=== PATIENT | female | born 1985 | race American Indian/Alaskan Native ===

== ENCOUNTER 2016-05-27 14:33 | Emergency (ER) | payer MEDICAID ==
--- NOTE | 2016-05-27 14:36 | EDM.PDOC ---
ED HPI RENAL/ - General Chief Complaint: Genitourinary Problem Stated Complaint: BLADDER INFECTION Time Seen by Provider: 05/27/16 14:35 Source of Information: Reports: Patient, Old records, RN, RN notes reviewed History Limitations: Reports: No limitations - History of Present Illness INITIAL COMMENTS - FREE TEXT/NARRATIVE: Arrives to ER by POV with c/o "bladder infection". Onset of burning with urination one and half weeks ago associated with some chills. It partially went away after 3 days, however, over the past several days has returned and she has developed left flank pain and suprapubic pressure. Denies fevers. Timing/Duration: Reports: Constant Location: Reports: urethral, suprapubic Quality: Reports: burning Severity: severe Worsens with: Reports: urinating Associated Symptoms: Reports: no other symptoms - Related Data Allergies/ADRs: Allergies Allergy/AdvReac Type Severity Reaction Status Date / Time ketorolac tromethamine Allergy Difficulty Verified 05/27/16 14:37 [From Toradol] Breathing Penicillins Allergy Cannot Verified 05/27/16 14:37 Remember Home Meds: Home Meds Insulin Glargine,Hum.Rec.Anlog [Lantus Solostar] 33 units SQ DAILY 12/20/15 [ History] Past Medical History - Past Health History Medical/Surgical History: Denies Medical/Surgical History HEENT History: Reports: None Cardiovascular History: Reports: None Respiratory History: Reports: None Gastrointestinal History: Reports: None Genitourinary History: Reports: UTI, recurrent 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 Musculoskeletal History: Reports: None Neurological History: Reports: None Psychiatric History: Reports: None Endocrine/Metabolic History: Reports: Diabetes, type II, Obesity/BMI 30+ Hematologic History: Reports: None Immunologic History: Reports: None Oncologic (Cancer) History: Reports: None Dermatologic History: Reports: None Social & Family History - Family History Family Medical History: Noncontributory - Tobacco Use Smoking Status *Q: Never Smoker Years of Tobacco use: 1 Used Tobacco, but Quit: Yes Month Tobacco Last Used: N/A Second Hand Smoke Exposure: Yes - Caffeine Use Caffeine Use: Reports: Coffee, Soda - Alcohol Use Days Per Week of Alcohol Use: 0 - Recreational Drug Use Recreational Drug Use: No - Living Situation & Occupation Living situation: Reports: with family ED ROS GENERAL - Review of Systems Review Of Systems: ROS reveals no pertinent complaints other than HPI. ED EXAM, RENAL/ - Physical Exam Exam: See Below Exam Limited By: No limitations General Appearance: alert, WD/WN, no apparent distress Head: atraumatic, normocephalic Neck: normal inspection Respiratory/Chest: no respiratory distress, lungs clear, normal breath sounds, no accessory muscle use, chest non-tender Cardiovascular: regular rate, rhythm GI/Abdominal: normal bowel sounds, soft, no distention, tender (suprapubic.). No: guarding, rigid, rebound (Female) Exam: Deferred Rectal (Female) Exam: Deferred Back Exam: full range of motion, CVA tenderness (L). No: CVA tenderness (R) Neurological: alert, oriented, no motor/sensory deficits Psychiatric: normal mood Skin Exam: Warm, Dry, Intact, Normal color, No rash Course - Vital Signs Last Recorded V/S: Last Vital Signs Temp 35.4 C 05/27/16 14:41 Pulse 110 H 05/27/16 14:41 Resp 16 05/27/16 14:41 BP 139/86 05/27/16 14:41 Pulse Ox 99 05/27/16 14:41 - Orders/Labs/Meds Orders: Active Orders 24 hr Category Date Time Status CHLAMYDIA TRACHOMATIS/GC AMPLF Routine Lab 05/27/16 15:00 Received CULTURE URINE [RM] Stat Lab 05/27/16 15:00 Received Labs: Laboratory Tests 05/27/16 05/27/16 Range/Units 15:00 15:00 Urine Color Yellow (YELLOW) Urine Appearance Slightly cloudy (CLEAR) Urine pH 6.5 (5.0-9.0) Ur Specific [place] 1.015 (1.005-1.030) Urine Protein Negative (NEGATIVE) Urine Glucose (UA) 500 H (NEGATIVE) Urine Ketones Negative (NEGATIVE) Urine Occult Blood Small H (NEGATIVE) Urine Nitrite Negative (NEGATIVE) Urine Bilirubin Negative (NEGATIVE) Urine Urobilinogen 0.2 (0.2-1.0) mg/dL Ur Leukocyte Esterase Negative (NEGATIVE) Urine RBC 0-5 /HPF Urine WBC 50-75 H (0-5/HPF) /HPF Ur Epithelial Cells Few /HPF Urine Bacteria Moderate H (0-FEW/HPF) /HPF Urine HCG, Qual Negative Departure - Departure Time of Disposition: 15:39 Disposition: Home, Self-Care 01 Condition: good Clinical Impression: Urinary tract infection Qualifiers: Urinary tract infection type: acute pyelonephritis Qualified Code(s): N10 - Acute pyelonephritis Instructions: Pyelonephritis, Adult, [id number] Forms: ED Department Discharge Additional Instructions: Pyridiium 200mg. Cipro 500mg. Drink plenty of water. Follow up in clinic for urine recheck in 7 to 10 days. - My Orders Last 24 Hours: My Active Orders 05/27/16 15:00 CHLAMYDIA TRACHOMATIS/GC AMPLF Routine CULTURE URINE [RM] Stat - Assessment/Plan Last 24 Hours: My Active Orders 05/27/16 15:00 CHLAMYDIA TRACHOMATIS/GC AMPLF Routine CULTURE URINE [RM] Stat
[2016-05-27 14:42] VITALS: BP 139/86
== END 2016-05-27 15:48 | disposition home or self-care (01) ==
LOC: DL.ED 14:33
DX: N10 Acute pyelonephritis (principal); E11.9 Type 2 diabetes mellitus without complications; E66.9 Obesity, unspecified; Z88.0 Allergy status to penicillin; Z88.5 Allergy status to narcotic agent; Z79.4 Long term (current) use of insulin
CPT/HCPCS: 81001; 81025; 87086; 87088; 87186; 87491; 87591; 99283

== ENCOUNTER 2016-06-03 11:52 | Emergency (ER) | payer MEDICAID ==
[2016-06-03 12:04] VITALS: BP 124/79
--- NOTE | 2016-06-03 13:20 | EDM.PDOC ---
ED HPI RENAL/ - General Chief Complaint: ENT Problem Stated Complaint: PAIN, STATIS POST TOOTH PULLED, KIDNEY INFECTION Time Seen by Provider: 06/03/16 13:11 - History of Present Illness INITIAL COMMENTS - FREE TEXT/NARRATIVE: patient presented to the emergency room. Patient was triaged and administered urinalysis. Patient was in the waiting room to be placed in the emergency room bed. When the nurse went to get patient, patient had left. Patient did not respond to followup. Timing/Duration: Reports: Day(s): - Related Data Allergies/ADRs: Allergies Allergy/AdvReac Type Severity Reaction Status Date / Time ketorolac tromethamine Allergy Difficulty Verified 06/03/16 20:29 [From Toradol] Breathing Penicillins Allergy Cannot Verified 06/03/16 20:29 Remember Home Meds: Home Meds Insulin Glargine,Hum.Rec.Anlog [Lantus Solostar] 33 units SQ DAILY 12/20/15 [ History] metFORMIN HCl [Metformin HCl] 1 tab PO BID 06/03/16 [History] Past Medical History - Past Health History Medical/Surgical History: Denies Medical/Surgical History HEENT History: Reports: None Cardiovascular History: Reports: None Respiratory History: Reports: None Gastrointestinal History: Reports: None Genitourinary History: Reports: Pyelonephritis, UTI, recurrent 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 Musculoskeletal History: Reports: None Neurological History: Reports: None Psychiatric History: Reports: None Endocrine/Metabolic History: Reports: Diabetes, type II, Obesity/BMI 30+ Hematologic History: Reports: None Immunologic History: Reports: None Oncologic (Cancer) History: Reports: None Dermatologic History: Reports: None Social & Family History - Family History Family Medical History: Noncontributory - Tobacco Use Smoking Status *Q: Former Smoker Years of Tobacco use: 1 Used Tobacco, but Quit: Yes Month Tobacco Last Used: 12 Second Hand Smoke Exposure: Yes - Caffeine Use Caffeine Use: Reports: Coffee, Soda - Alcohol Use Days Per Week of Alcohol Use: 0 - Recreational Drug Use Recreational Drug Use: No - Living Situation & Occupation Living situation: Reports: with family ED ROS GENERAL - Review of Systems Review Of Systems: ROS reveals no pertinent complaints other than HPI. ED EXAM, RENAL/ - Physical Exam Exam: See Below Text/Narrative:: Patient left before being seen. No examination of patient Course - Vital Signs Last Recorded V/S: Last Vital Signs Temp 98.2 F 06/03/16 12:03 Pulse 101 H 06/03/16 12:03 Resp 20 06/03/16 12:03 BP 124/79 06/03/16 12:03 Pulse Ox 98 06/03/16 12:03 - Orders/Labs/Meds Labs: Laboratory Tests 06/03/16 Range/Units 12:10 Urine Color Yellow (YELLOW) Urine Appearance Slightly cloudy (CLEAR) Urine pH 5.0 (5.0-9.0) Ur Specific [place] >= 1.030 (1.005-1.030) Urine Protein 30 H (NEGATIVE) Urine Glucose (UA) >=1000 H (NEGATIVE) Urine Ketones Negative (NEGATIVE) Urine Occult Blood Negative (NEGATIVE) Urine Nitrite Negative (NEGATIVE) Urine Bilirubin Small H (NEGATIVE) Urine Urobilinogen 0.2 (0.2-1.0) mg/dL Ur Leukocyte Esterase Negative (NEGATIVE) Urine RBC 0-5 /HPF Urine WBC 0-5 (0-5/HPF) /HPF Ur Epithelial Cells Many H /HPF Urine Bacteria Moderate H (0-FEW/HPF) /HPF Urine Mucus Moderate H /LPF Urine Yeast Few H (0/HPF) /HPF Departure - Departure Time of Disposition: 08:48 Disposition: Eloped 07 Condition: undetermined Clinical Impression: Urinary tract infection Qualifiers: Urinary tract infection type: acute pyelonephritis Qualified Code(s): N10 - Acute pyelonephritis Referrals: Miri Dockery MD [Primary Care Provider] - Forms: ED Department Discharge
== END 2016-06-03 13:55 | disposition left against medical advice (07) ==
LOC: DL.ED 11:52
DX: Z53.21 Procedure and treatment not carried out due to patient leaving prior to being seen by health care provider (principal); N10 Acute pyelonephritis; Z88.0 Allergy status to penicillin; Z88.8 Allergy status to other drugs, medicaments and biological substances; Z79.84 Long term (current) use of oral hypoglycemic drugs; E11.9 Type 2 diabetes mellitus without complications; E66.9 Obesity, unspecified; Z68.27 Body mass index [BMI] 27.0-27.9, adult; Z87.891 Personal history of nicotine dependence
CPT/HCPCS: 81001

== ENCOUNTER 2016-06-03 20:12 | Emergency (ER) | payer MEDICAID ==
[2016-06-03 20:28] VITALS: BP 142/95
[2016-06-03] MEDS ORDERED: Clindamycin HCl 150 MG Cap PO ONE (21:05)
--- NOTE | 2016-06-03 21:15 | EDM.PDOC ---
ED HPI ENT - General Chief Complaint: ENT Problem Stated Complaint: TOOTH PAIN [id number] Time Seen by Provider: 06/03/16 21:00 Source of Information: Reports: Patient History Limitations: Reports: No limitations - History of Present Illness INITIAL COMMENTS - FREE TEXT/NARRATIVE: pain left side of mouth, upper molar pulled on Monday, pain continues. Feels pain up into eye. 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 - Related Data Allergies/ADRs: Allergies Allergy/AdvReac Type Severity Reaction Status Date / Time ketorolac tromethamine Allergy Difficulty Verified 06/03/16 20:29 [From Toradol] Breathing Penicillins Allergy Cannot Verified 06/03/16 20:29 Remember Home Meds: Home Meds Insulin Glargine,Hum.Rec.Anlog [Lantus Solostar] 33 units SQ DAILY 12/20/15 [ History] metFORMIN HCl [Metformin HCl] 1 tab PO BID 06/03/16 [History] Past Medical History - Past Health History Medical/Surgical History: Denies Medical/Surgical History HEENT History: Reports: None Cardiovascular History: Reports: None Respiratory History: Reports: None Gastrointestinal History: Reports: None Genitourinary History: Reports: Pyelonephritis, UTI, recurrent 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 Musculoskeletal History: Reports: None Neurological History: Reports: None Psychiatric History: Reports: None Endocrine/Metabolic History: Reports: Diabetes, type II, Obesity/BMI 30+ Hematologic History: Reports: None Immunologic History: Reports: None Oncologic (Cancer) History: Reports: None Dermatologic History: Reports: None - Infectious Disease History Infectious Disease History: Reports: MRSA Social & Family History - Family History Family Medical History: Noncontributory - Tobacco Use Smoking Status *Q: Never Smoker Years of Tobacco use: 1 Used Tobacco, but Quit: Yes Month Tobacco Last Used: 12 Second Hand Smoke Exposure: Yes - Caffeine Use Caffeine Use: Reports: Coffee, Soda, Tea - Alcohol Use Days Per Week of Alcohol Use: 0 - Recreational Drug Use Recreational Drug Use: No - Living Situation & Occupation Living situation: Reports: with family ED ROS ENT - Review of Systems Review Of Systems: See Below Constitutional: Reports: no symptoms HEENT: Reports: Dental pain Skin: Reports: no symptoms Neurological: Reports: No Symptoms ED EXAM, ENT - Physical Exam Exam: See Below Exam Limited By: No limitations General Appearance: alert, mild distress Ears: normal external exam, normal canal, normal TMs Nose: normal inspection Mouth/Throat: Dental pain, Dental tenderness (left upper 2nd molar recent extraction, minmal swelling , tender mid maxilla mild swelling to gum tussue) Head: facial tenderness (left mid maxilla) Neck: normal inspection, lymphadenopathy (L) (mild anterior) Respiratory/Chest: no respiratory distress Cardiovascular: normal peripheral pulses Neurological: alert, oriented Skin: Warm, Dry, Intact Course - Vital Signs Last Recorded V/S: Last Vital Signs Temp 98.4 F 06/03/16 20:18 Pulse 109 H 06/03/16 20:18 Resp 20 06/03/16 20:18 BP 142/95 H 06/03/16 20:18 Pulse Ox 100 06/03/16 20:18 - Orders/Labs/Meds Meds: Medications Discontinued Medications Generic Name Dose Route Start Last Admin Trade Name Manq PRN Reason Stop Dose Admin Clindamycin HCl 300 mg 06/03/16 21:05 06/03/16 21:12 Cleocin PO 06/03/16 21:06 300 mg ONETIME ONE Administration Departure - Departure Time of Disposition: 21:10 Disposition: Home, Self-Care 01 Condition: good Clinical Impression: Dental abscess Forms: ED Department Discharge Additional Instructions: alternate tylenol 650mg with ibuprofen every 4-6 hours as needed clindamycin 300mg every 8 hours for one week Recheck with dentist next week rinse with water after meals
== END 2016-06-03 21:16 | disposition home or self-care (01) ==
LOC: DL.ED 20:12
DX: K04.7 Periapical abscess without sinus (principal); E11.9 Type 2 diabetes mellitus without complications; E66.9 Obesity, unspecified; Z88.8 Allergy status to other drugs, medicaments and biological substances; Z88.0 Allergy status to penicillin
CPT/HCPCS: 99282; A9270

== ENCOUNTER 2016-06-26 22:54 | Emergency (ER) | payer MEDICAID ==
[2016-06-26 23:29] VITALS: BP 147/107
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
[2016-06-27] MEDS ORDERED: Cephalexin 250 MG Cap PO ONE (00:26)
[2016-06-27] MEDS ORDERED: Acetaminophen/HYDROcodone 325-10 MG Tab PO ONE (00:28)
[2016-06-27] MEDS ORDERED: Acetaminophen/HYDROcodone 325-10 MG Tab ONE (00:28)
== END 2016-06-27 00:35 | disposition home or self-care (01) ==
LOC: DL.ED 22:54
DX: S00.83XA Contusion of other part of head, initial encounter (principal); S51.852A Open bite of left forearm, initial encounter; E11.40 Type 2 diabetes mellitus with diabetic neuropathy, unspecified; E66.9 Obesity, unspecified; Z87.440 Personal history of urinary (tract) infections; Z88.0 Allergy status to penicillin; Z79.4 Long term (current) use of insulin; Z79.899 Other long term (current) drug therapy; Z88.6 Allergy status to analgesic agent; Y04.0XXA Assault by unarmed brawl or fight, initial encounter
CPT/HCPCS: 70450; 81025; 99284; A9270

== ENCOUNTER 2016-07-31 21:24 | Emergency (ER) | payer MEDICAID ==
--- NOTE | 2016-07-31 21:59 | EDM.PDOC ---
ED HPI GENERAL MEDICAL PROBLEM - General Chief Complaint: Abdominal Pain Stated Complaint: SHARP PAIN IN STOMACH Time Seen by Provider: 07/31/16 21:58 Source of Information: Reports: Patient History Limitations: Reports: No Limitations - History of Present Illness INITIAL COMMENTS - FREE TEXT/NARRATIVE: onset yesterday @ RUQ region, no N/V/D. ate BBQ tonight but nothing spicy or greasy. 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: Acetaminophen, NSAIDS Right Upper Abdomen Pain Score (Numeric/FACES): 5 - Related Data Allergies Allergy/AdvReac Type Severity Reaction Status Date / Time ketorolac tromethamine Allergy Difficulty Verified 07/31/16 21:39 [From Toradol] Breathing Penicillins Allergy Cannot Verified 07/31/16 21:39 Remember Home Meds: Home Meds Insulin Glargine,Hum.Rec.Anlog [Lantus Solostar] 25 units SQ DAILY 12/20/15 [ History] metFORMIN HCl [Metformin HCl] 1 tab PO BID 06/03/16 [History] Gabapentin [Neurontin] 300 mg PO TID 06/26/16 [History] glyBURIDE [Glyburide] 5 mg PO DAILY 06/26/16 [History] Past Medical History - Past Health History Medical/Surgical History: Denies Medical/Surgical History HEENT History: Reports: None Cardiovascular History: Reports: None Respiratory History: Reports: None Gastrointestinal History: Reports: None Genitourinary History: Reports: Pyelonephritis, UTI, Recurrent 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 Musculoskeletal History: Reports: None Neurological History: Reports: Neuropathy, Diabetic Psychiatric History: Reports: None Endocrine/Metabolic History: Reports: Diabetes, Type II, Obesity/BMI 30+ Hematologic History: Reports: None Immunologic History: Reports: None Oncologic (Cancer) History: Reports: None Dermatologic History: Reports: None - Infectious Disease History Infectious Disease History: Reports: MRSA Social & Family History - Family History Family Medical History: Noncontributory - Tobacco Use Smoking Status *Q: Never Smoker Years of Tobacco use: 1 Used Tobacco, but Quit: Yes Month Tobacco Last Used: 12 Second Hand Smoke Exposure: Yes - Caffeine Use Caffeine Use: Reports: Coffee, Soda, Tea - Alcohol Use Days Per Week of Alcohol Use: 0 - Recreational Drug Use Recreational Drug Use: No - Living Situation & Occupation Living situation: Reports: with Family ED ROS GENERAL - Review of Systems Review Of Systems: ROS reveals no pertinent complaints other than HPI. ED EXAM, GI/ABD - Physical Exam Exam: See Below Exam Limited By: No Limitations General Appearance: Alert, WD/WN, Mild Distress, Other (discomfort) Ears: Hearing Grossly Normal Throat/Mouth: Normal Voice, No Airway Compromise Head: Atraumatic Neck: Non-Tender, Full Range of Motion Respiratory/Chest: No Respiratory Distress Cardiovascular: Regular Rate, Rhythm GI/Abdominal: Hyperactive Bowel Sounds, Tenderness, Other (RUQ). No: Guarding, Rebound, Rigidity Neurological: Alert, Oriented, Normal Cognition, Normal Gait, No Motor/Sensory Deficits Psychiatric: Flat Affect Skin Exam: Warm, Dry Lymphatic: No Adenopathy Course - Vital Signs Last Recorded V/S: Last Vital Signs Temp 35.9 C 07/31/16 21:28 Pulse 111 H 07/31/16 21:28 Resp 18 07/31/16 21:28 BP 142/89 H 07/31/16 21:28 Pulse Ox 99 07/31/16 21:28 - Orders/Labs/Meds Orders: Active Orders 24 hr Category Date Time Status Acetaminophen/HYDROcodone [[place] 325-10 MG] Med 07/31/16 22:48 Once 1 tab PO ONETIME ONE Medication Orders Hydrocodone Bitart/Acetaminophen ([place] 325-10 Mg) 1 tab PO ONETIME ONE Stop: 07/31/16 22:49 Labs: Laboratory Tests 07/31/16 07/31/16 07/31/16 Range/Units 21:58 21:58 21:58 WBC (5.0-10.0) 10^3/uL RBC (4.2-5.4) 10^6/uL Hgb (12.0-16.0) g/dL Hct (37.0-47.0) % MCV (80-100) fL MCH (27.0-34.0) pg MCHC (33.0-35.0) g/dL Plt Count (150-450) 10^3/uL Neut % (Auto) (42.2-75.2) % Lymph % (Auto) (20.5-50.1) % [place] % (Auto) (2-8) % Eos % (Auto) (1.0-3.0) % Baso % (Auto) (0.0-1.0) % Sodium (135-145) mmol/L Potassium (3.6-5.0) mmol/L Chloride (101-111) mmol/L Carbon Dioxide (21.0-31.0) mmol/L Anion Gap BUN (7-18) mg/dL Creatinine (0.6-1.3) mg/dL Est Cr Clr Drug Dosing mL/min Estimated GFR (MDRD) BUN/Creatinine Ratio Glucose (74-105) mg/dL Calcium (8.4-10.2) mg/dl Total Bilirubin (0.2-1.0) mg/dL AST (10-42) IU/L ALT (10-60) IU/L Alkaline Phosphatase (42-121) IU/L Total Protein (6.7-8.2) g/dl Albumin (3.2-5.5) g/dl Globulin Albumin/Globulin Ratio Amylase (28-100) U/L Lipase (22-51) U/L Urine Color Yellow (YELLOW) Urine Appearance Slightly cloudy (CLEAR) Urine pH 5.5 (5.0-9.0) Ur Specific [place] 1.020 (1.005-1.030) Urine Protein Negative (NEGATIVE) Urine Glucose (UA) 100 H (NEGATIVE) Urine Ketones Negative (NEGATIVE) Urine Occult Blood Negative (NEGATIVE) Urine Nitrite Negative (NEGATIVE) Urine Bilirubin Negative (NEGATIVE) Urine Urobilinogen 0.2 (0.2-1.0) mg/dL Ur Leukocyte Esterase Negative (NEGATIVE) Urine RBC 0-5 /HPF Urine WBC 0-5 (0-5/HPF) /HPF Ur Epithelial Cells Few /HPF Urine Bacteria Rare (0-FEW/HPF) /HPF Urine HCG, Qual Negative Urine Opiates Screen Negative (NEGATIVE) Ur Oxycodone Screen Negative (NEGATIVE) Urine Methadone Screen Negative (NEGATIVE) Ur Barbiturates Screen Negative (NEGATIVE) U Tricyclic Antidepress Negative (NEGATIVE) Ur Phencyclidine Scrn Negative (NEGATIVE) Ur Amphetamine Screen Negative (NEGATIVE) U Methamphetamines Scrn Negative (NEGATIVE) Urine MDMA Screen Negative (NEGATIVE) U Benzodiazepines Scrn Negative (NEGATIVE) Urine Cocaine Screen Negative (NEGATIVE) U Marijuana (THC) Screen Negative (NEGATIVE) 06/18/17 06/18/17 Range/Units 22:09 22:09 WBC 11.2 H (5.0-10.0) 10^3/uL RBC 4.66 (4.2-5.4) 10^6/uL Hgb 13.5 (12.0-16.0) g/dL Hct 39.8 (37.0-47.0) % MCV 85.4 (80-100) fL MCH 29.0 (27.0-34.0) pg MCHC 33.9 (33.0-35.0) g/dL Plt Count 366 (150-450) 10^3/uL Neut % (Auto) 54.7 (42.2-75.2) % Lymph % (Auto) 32.5 (20.5-50.1) % [place] % (Auto) 8.1 H (2-8) % Eos % (Auto) 4.1 H (1.0-3.0) % Baso % (Auto) 0.6 (0.0-1.0) % Sodium 138 (135-145) mmol/L Potassium 4.0 (3.6-5.0) mmol/L Chloride 101 (101-111) mmol/L Carbon Dioxide 26.0 (21.0-31.0) mmol/L Anion Gap 15.0 BUN 18 (7-18) mg/dL Creatinine 0.5 L (0.6-1.3) mg/dL Est Cr Clr Drug Dosing 139.49 mL/min Estimated GFR (MDRD) > 60 BUN/Creatinine Ratio 36.00 Glucose 232 H (74-105) mg/dL Calcium 8.8 (8.4-10.2) mg/dl Total Bilirubin 0.4 (0.2-1.0) mg/dL AST 18 (10-42) IU/L ALT 20 (10-60) IU/L Alkaline Phosphatase 96 (42-121) IU/L Total Protein 6.9 (6.7-8.2) g/dl Albumin 4.0 (3.2-5.5) g/dl Globulin 2.9 Albumin/Globulin Ratio 1.38 Amylase 52 (28-100) U/L Lipase 26 (22-51) U/L Urine Color (YELLOW) Urine Appearance (CLEAR) Urine pH (5.0-9.0) Ur Specific [place] (1.005-1.030) Urine Protein (NEGATIVE) Urine Glucose (UA) (NEGATIVE) Urine Ketones (NEGATIVE) Urine Occult Blood (NEGATIVE) Urine Nitrite (NEGATIVE) Urine Bilirubin (NEGATIVE) Urine Urobilinogen (0.2-1.0) mg/dL Ur Leukocyte Esterase (NEGATIVE) Urine RBC /HPF Urine WBC (0-5/HPF) /HPF Ur Epithelial Cells /HPF Urine Bacteria (0-FEW/HPF) /HPF Urine HCG, Qual Urine Opiates Screen (NEGATIVE) Ur Oxycodone Screen (NEGATIVE) Urine Methadone Screen (NEGATIVE) Ur Barbiturates Screen (NEGATIVE) U Tricyclic Antidepress (NEGATIVE) Ur Phencyclidine Scrn (NEGATIVE) Ur Amphetamine Screen (NEGATIVE) U Methamphetamines Scrn (NEGATIVE) Urine MDMA Screen (NEGATIVE) U Benzodiazepines Scrn (NEGATIVE) Urine Cocaine Screen (NEGATIVE) U Marijuana (THC) Screen (NEGATIVE) Meds: Medications Generic Name Dose Route Start Last Admin Trade Name Freq PRN Reason Stop Dose Admin Hydrocodone Bitart/Acetaminophen 1 tab 07/31/16 22:48 [place] 325-10 Mg PO 07/31/16 22:49 ONETIME ONE - Re-Assessments/Exams Free Text/Narrative Re-Assessment/Exam: 07/31/16 22:50 results discussed with Pt. Departure - Departure Time of Disposition: 22:50 Disposition: Home, Self-Care 01 Condition: Good Clinical Impression: Abdominal pain Qualifiers: Abdominal location: epigastric Qualified Code(s): R10.13 - Epigastric pain - Discharge Information Instructions: Abdominal Pain, Adult, [id number] Forms: ED Department Discharge Additional Instructions: 1) see clinic tomorrow for GALL BLADDER ULTRASOUND FOR GALL BLADDER ISSUE - My Orders Last 24 Hours: My Active Orders 07/31/16 22:48 Acetaminophen/HYDROcodone [[place] 325-10 MG] 1 tab PO ONETIME ONE - Assessment/Plan Last 24 Hours: My Active Orders 07/31/16 22:48 Acetaminophen/HYDROcodone [[place] 325-10 MG] 1 tab PO ONETIME ONE
[2016-07-31 22:37] LABS: CHLORIDE,CL 101 mmol/L (101-111); SODIUM,NA 138 mmol/L (135-145)
[2016-07-31] MEDS ORDERED: Acetaminophen/HYDROcodone 325-10 MG Tab PO ONE (22:48)
[2016-07-31 23:07] VITALS: BP 138/98
== END 2016-07-31 23:00 | disposition home or self-care (01) ==
LOC: DL.ED 21:24
DX: R10.13 Epigastric pain (principal); Z79.899 Other long term (current) drug therapy; Z79.4 Long term (current) use of insulin; E11.9 Type 2 diabetes mellitus without complications; Z86.14 Personal history of Methicillin resistant Staphylococcus aureus infection; Z88.0 Allergy status to penicillin; Z88.6 Allergy status to analgesic agent; Z87.891 Personal history of nicotine dependence; E66.9 Obesity, unspecified
CPT/HCPCS: 36415; 80053; 80305; 81001; 81025; 82150; 83690; 85025; 99284; A9270

== ENCOUNTER 2016-08-05 19:35 | Emergency (ER) | payer MEDICAID ==
[2016-08-05] MEDS ORDERED: Morphine 2 MG/ML Syringe IVPUSH ONE (20:26)
[2016-08-05] MEDS ORDERED: Ondansetron 4 MG/2 ML SDV IV ONE (20:26)
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
[2016-08-05 21:04] LABS: CHLORIDE,CL 102 mmol/L (101-111); SODIUM,NA 138 mmol/L (135-145)
[2016-08-05] MEDS ORDERED: GI Cocktail Oral Solution 30 ML PO ONE (21:15)
[2016-08-05 21:55] VITALS: BP 153/98
== END 2016-08-05 22:00 | disposition home or self-care (01) ==
LOC: DL.ED 19:35
DX: R10.11 Right upper quadrant pain (principal); R10.13 Epigastric pain; I10 Essential (primary) hypertension; Z87.440 Personal history of urinary (tract) infections; E11.40 Type 2 diabetes mellitus with diabetic neuropathy, unspecified; E66.9 Obesity, unspecified; Z88.6 Allergy status to analgesic agent; Z88.0 Allergy status to penicillin; Z79.4 Long term (current) use of insulin; Z79.84 Long term (current) use of oral hypoglycemic drugs; Z79.899 Other long term (current) drug therapy
CPT/HCPCS: 36415; 80053; 82150; 83690; 85025; 96374; 96375; 99284; A9270; J2270; J2405

== ENCOUNTER 2016-11-26 19:12 | Emergency (ER) | payer MEDICAID ==
[2016-11-26 20:06] VITALS: BP 148/100
[2016-11-26] MEDS ORDERED: Azithromycin 250 MG Tab PO ONE (20:43)
[2016-11-26] MEDS ORDERED: Codeine/Promethazine 10-6.25 MG/5 ML Syrup 5 ML UD Cup ONE (20:48)
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
== END 2016-11-26 20:56 | disposition home or self-care (01) ==
LOC: DL.ED 19:12
DX: J03.90 Acute tonsillitis, unspecified (principal); N39.0 Urinary tract infection, site not specified; J40 Bronchitis, not specified as acute or chronic; Z87.891 Personal history of nicotine dependence; E11.9 Type 2 diabetes mellitus without complications; E66.9 Obesity, unspecified; Z79.84 Long term (current) use of oral hypoglycemic drugs; Z88.0 Allergy status to penicillin; Z88.8 Allergy status to other drugs, medicaments and biological substances
CPT/HCPCS: 81001; 87081; 87430; 99283; A9270

== ENCOUNTER 2016-12-04 19:15 | Emergency (ER) | payer MEDICAID ==
[2016-12-04 20:30] VITALS: BP 145/94
[2016-12-04] MEDS ORDERED: Acetaminophen/HYDROcodone 325-10 MG Tab PO ONE (21:23)
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
== END 2016-12-04 21:36 | disposition home or self-care (01) ==
LOC: DL.ED 19:15
DX: S90.31XA Contusion of right foot, initial encounter (principal); E11.9 Type 2 diabetes mellitus without complications; I10 Essential (primary) hypertension; Z79.84 Long term (current) use of oral hypoglycemic drugs; Z79.899 Other long term (current) drug therapy; Z88.5 Allergy status to narcotic agent; Z88.0 Allergy status to penicillin; W18.49XA Other slipping, tripping and stumbling without falling, initial encounter
CPT/HCPCS: 73610; 99283; A9270

== ENCOUNTER 2017-02-06 21:17 | Emergency (ER) | payer MEDICAID ==
[2017-02-06 21:47] VITALS: BP 133/85
[2017-02-06] MEDS ORDERED: Nitrofurantoin Monohydrate/Macrocrystalline 100 MG Cap PO ONE (22:45)
[2017-02-06] MEDS ORDERED: Phenazopyridine 95 MG Tab PO ONE (22:45)
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
== END 2017-02-06 23:00 | disposition home or self-care (01) ==
LOC: DL.ED 21:17
DX: N39.0 Urinary tract infection, site not specified (principal); I10 Essential (primary) hypertension; E11.9 Type 2 diabetes mellitus without complications; Z88.6 Allergy status to analgesic agent; Z88.0 Allergy status to penicillin; Z79.84 Long term (current) use of oral hypoglycemic drugs; Z79.899 Other long term (current) drug therapy
CPT/HCPCS: 81001; 99284; A9270

== ENCOUNTER 2017-04-12 21:04 | Emergency (ER) | payer MEDICAID ==
[2017-04-12 21:22] VITALS: BP 120/83
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
[2017-04-12] MEDS: predniSONE 20 MG Tab PO ONE (21:57)
[2017-04-12] MEDS: Azithromycin 250 MG Tab PO ONE ×2 (21:57)
== END 2017-04-12 22:06 | disposition home or self-care (01) ==
LOC: DL.ED 21:04
DX: J02.0 Streptococcal pharyngitis (principal); I10 Essential (primary) hypertension; E11.40 Type 2 diabetes mellitus with diabetic neuropathy, unspecified; Z88.6 Allergy status to analgesic agent; Z88.1 Allergy status to other antibiotic agents; Z79.899 Other long term (current) drug therapy; Z79.4 Long term (current) use of insulin; Z87.891 Personal history of nicotine dependence
CPT/HCPCS: 87430; 99283; A9270

== ENCOUNTER 2017-09-25 23:21 | Emergency (ER) | payer MEDICAID ==
[2017-09-25 23:26] VITALS: BP 134/93
[2017-09-25] MEDS ORDERED: Sodium Chloride 0.9% 50 ML IV SCH (23:45)
[2017-09-25] MEDS ORDERED: Sodium Chloride 0.9% 1,000 ML IV ONE (23:45)
[2017-09-25] MEDS ORDERED: Famotidine 20 MG/2 ML SDV IVPUSH ONE (23:48)
[2017-09-25] MEDS ORDERED: Ondansetron 4 MG/2 ML SDV IV ONE (23:48)
[2017-09-26 00:08] LABS: ANION GAP 14.4; CHLORIDE,CL 101 mmol/L (101-111); SODIUM,NA 133 mmol/L (135-145)
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
[2017-09-26] MEDS ORDERED: Nitrofurantoin Monohydrate/Macrocrystalline 100 MG Cap PO ONE (00:44)
== END 2017-09-26 01:10 | disposition home or self-care (01) ==
LOC: DL.ED 23:21
DX: K52.9 Noninfective gastroenteritis and colitis, unspecified (principal); N10 Acute pyelonephritis; I10 Essential (primary) hypertension; E11.40 Type 2 diabetes mellitus with diabetic neuropathy, unspecified; Z79.84 Long term (current) use of oral hypoglycemic drugs; Z79.899 Other long term (current) drug therapy; Z88.0 Allergy status to penicillin; Z88.6 Allergy status to analgesic agent
CPT/HCPCS: 36415; 74018; 80053; 81001; 82150; 83690; 85025; 96361; 96374; 96375; 99284; A9270; J2405; J3490; J7030

== ENCOUNTER 2018-04-25 10:31 | Emergency (ER) | payer MEDICAID ==
[2018-04-25 11:44] VITALS: BP 125/80
[2018-04-25] MEDS ORDERED: Ketorolac 30 MG/ML SDV IM ONE (11:44)
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
== END 2018-04-25 12:10 | disposition home or self-care (01) ==
LOC: DL.ED 10:31
DX: M62.830 Muscle spasm of back (principal); M54.5 Low back pain; I10 Essential (primary) hypertension; E66.9 Obesity, unspecified; E11.9 Type 2 diabetes mellitus without complications; Z88.0 Allergy status to penicillin; Z88.8 Allergy status to other drugs, medicaments and biological substances; Z79.899 Other long term (current) drug therapy
CPT/HCPCS: 96372; 99282; J1885; J2360

== ENCOUNTER 2018-04-30 20:46 | Emergency (ER) | payer MEDICAID ==
[2018-04-30] MEDS ORDERED: methylPREDNISolone Sodium Succinate 125 MG/2 ML SDV IM ONE (21:12)
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
[2018-04-30] MEDS ORDERED: Nitrofurantoin Monohydrate/Macrocrystalline 100 MG Cap PO ONE (22:01)
[2018-04-30 22:03] VITALS: BP 134/76
== END 2018-04-30 22:23 | disposition home or self-care (01) ==
LOC: DL.ED 20:46
DX: N39.0 Urinary tract infection, site not specified (principal); M54.5 Low back pain; G89.29 Other chronic pain; I10 Essential (primary) hypertension; E11.40 Type 2 diabetes mellitus with diabetic neuropathy, unspecified; E66.9 Obesity, unspecified; Z88.0 Allergy status to penicillin; Z88.6 Allergy status to analgesic agent
CPT/HCPCS: 81001; 87086; 96372; 99283; A9270; J2930; 87088; 87186

== ENCOUNTER 2018-05-02 08:03 | Emergency (ER) | payer MEDICAID ==
[2018-05-02] MEDS ORDERED: Lidocaine 1% 30 ML SDV INJECT ONE (08:24)
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
[2018-05-02 08:43] LABS: ANION GAP 18.6; CHLORIDE,CL 94 mmol/L (101-111); SODIUM,NA 129 mmol/L (135-145)
[2018-05-02] MEDS ORDERED: Vancomycin 1.5 GM in Sodium Chloride 0.9% 500 ML IV ONE (08:51)
[2018-05-02] MEDS ORDERED: Acetaminophen/HYDROcodone 325-10 MG Tab PO ONE (09:16)
[2018-05-02 10:45] VITALS: BP 120/74
== END 2018-05-02 10:50 | disposition home or self-care (01) ==
LOC: EEVIPCON 08:03 → DL.ED 08:03
DX: L02.211 Cutaneous abscess of abdominal wall (principal); I10 Essential (primary) hypertension; E11.40 Type 2 diabetes mellitus with diabetic neuropathy, unspecified; Z88.5 Allergy status to narcotic agent; Z79.899 Other long term (current) drug therapy; Z88.0 Allergy status to penicillin; Z79.84 Long term (current) use of oral hypoglycemic drugs
CPT/HCPCS: 10060; 36415; 80053; 80305; 81001; 81025; 83605; 85025; 87040; 87070; 87077; 87186; 96365; 99283; A9270; J2001; J3370; J7040

== ENCOUNTER 2018-07-24 14:13 | Emergency (ER) | payer MEDICAID, SELFPAY ==
[2018-07-24 14:45] VITALS: BP 130/101
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
[2018-07-24] MEDS ORDERED: cefTRIAXone 1 GM Vial IM ONE (15:54)
[2018-07-24] MEDS ORDERED: Azithromycin 250 MG Tab PO ONE (15:54)
[2018-07-24] MEDS ORDERED: Fluconazole 100 MG Tab PO ONE (15:55)
[2018-07-24] MEDS ORDERED: Phenazopyridine 95 MG Tab PO ONE (16:09)
[2018-07-24] MEDS ORDERED: Lidocaine 1% 30 ML SDV INJECT ONE (16:12)
[2018-07-24] MEDS: Lidocaine 1% 10 ML MDV INJECT ONE ×2 (16:25→16:28)
== END 2018-07-24 16:37 | disposition home or self-care (01) ==
LOC: DL.ED 14:13
DX: B37.3 Candidiasis of vulva and vagina (principal); E11.40 Type 2 diabetes mellitus with diabetic neuropathy, unspecified; I10 Essential (primary) hypertension; E66.9 Obesity, unspecified; Z88.0 Allergy status to penicillin; Z88.6 Allergy status to analgesic agent; Z79.84 Long term (current) use of oral hypoglycemic drugs; Z79.899 Other long term (current) drug therapy
CPT/HCPCS: 81001; 81025; 87210; 87491; 87591; 96372; 99283; A9270; J0696; J2001

== ENCOUNTER 2019-05-12 15:22 | Inpatient (IN) | payer MEDICAID, OTHER ==
[2019-05-12] MEDS: Sodium Chloride 0.9% 10 ML Syringe FLUSH PRN (16:48)
[2019-05-12] MEDS ORDERED: Morphine 2 MG/ML Syringe IVPUSH ONE ×2 (17:16→19:38)
[2019-05-12 17:18] LABS: ANION GAP 17.8 mEq/L (7-13); CHLORIDE,CL 96 mmol/L (98-107); SODIUM,NA 133 mmol/L (136-145)
[2019-05-12] MEDS ORDERED: Sodium Chloride 0.9% 1,000 ML IV ONE ×3 (17:26→22:03)
[2019-05-12] MEDS ORDERED: Insulin Regular, Human 100 Units/ML 3 ML Vial IV ONE (17:33)
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
[2019-05-12] MEDS ORDERED: Piperacillin/Tazobactam 3.375 GM in Sodium Chloride 0.9% 100 ML IV ONE (18:40)
[2019-05-12] MEDS ORDERED: Acetaminophen 500 MG Tab PO ONE (19:36)
[2019-05-12] MEDS ORDERED: Ibuprofen 400 MG Tab PO ONE (19:37)
[2019-05-12] MEDS ORDERED: Acetaminophen/oxyCODONE 325-5 MG Tab PO PRN (19:55)
[2019-05-12] MEDS ORDERED: Ondansetron 4 MG/2 ML SDV IVPUSH PRN (19:55)
[2019-05-12] MEDS: Sodium Chloride 0.9% 1,000 ML IV SCH (20:19)
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
[2019-05-12] MEDS ORDERED: Insulin Glarg,Human.Rec.Analog 100 Unit/ML SUBCUT SCH (21:00)
[2019-05-12] MEDS: Gabapentin 300 MG Cap PO SCH (21:16)
[2019-05-12] MEDS: QUEtiapine 100 MG Tab PO SCH (21:16)
[2019-05-12] MEDS: Insulin Glarg,Human.Rec.Analog 100 Unit/ML SUBCUT SCH (21:16)
[2019-05-12] MEDS: Insulin Lispro 100 Units/ML 3 ML Vial SUBCUT SCH (21:18)
[2019-05-12] MEDS ORDERED: Iopamidol 755 Mg/ML 100 ML Bottle IVPUSH ONE (22:00)
[2019-05-12] MEDS ORDERED: Magnesium Sulfate/Water 2 GM in Premix Bag 1 BAG IV ONE (22:07)
[2019-05-12] MEDS: Acetaminophen 325 MG Tab PO PRN (23:28)
[2019-05-12] MEDS: Ibuprofen 600 MG Tab PO PRN (23:28)
[2019-05-13] MEDS: Piperacillin/Tazobactam 3.375 GM in Sodium Chloride 0.9% 100 ML IV SCH ×4 (01:32→17:13)
[2019-05-13 05:05] LABS: ANION GAP 12.6 mEq/L (7-13); CHLORIDE,CL 103 mmol/L (98-107); SODIUM,NA 135 mmol/L (136-145)
[2019-05-13] MEDS: Ibuprofen 600 MG Tab PO PRN (07:30)
[2019-05-13] MEDS ORDERED: Insulin Lispro 100 Units/ML 3 ML Vial SUBCUT SCH (08:00)
[2019-05-13] MEDS: Insulin Lispro 100 Units/ML 3 ML Vial SUBCUT SCH ×6 (08:26→21:19)
[2019-05-13] MEDS: Gabapentin 300 MG Cap PO SCH ×3 (08:27→21:23)
[2019-05-13] MEDS: Escitalopram 10 MG Tab PO SCH (08:27)
[2019-05-13] MEDS: Enoxaparin 40 MG/0.4 ML Syringe SUBCUT SCH (08:27)
[2019-05-13] MEDS: Lisinopril 5 MG Tab PO SCH (08:28)
[2019-05-13] MEDS: Acetaminophen 325 MG Tab PO PRN ×3 (09:06→20:26)
[2019-05-13] MEDS: Phosphorus #1 250 MG Tab PO SCH ×4 (09:07→21:23)
[2019-05-13 09:20] LABS: HEMOGLOBIN A1C 9.7 % (<5.7)
--- NOTE | 2019-05-13 10:18 | PCM.PN ---
- General Info Date of Service: 05/13/19 Admission Dx/Problem (Free Text): Admission Diagnosis/Problem Admission Diagnosis/Problem Pyelonephritis Subjective Update: Meli is a 33 y/o F with PMH of recurrent Kidney/UTI, depression, Type 2 diabetes, obesity, who presented to the ED for evaluation of fever, chills and right flank pains that started 3 days ago. She was found to have Sepsis due to UTI. She was started on IV Zosyn. Patient is also being screened for COVID-19. She has cough, fever, upper respiratory symptoms. Today she si doing ok. Fever, chills and right flank pain has improved. She says she is feeling better. Blood cx was positive for gram negative rods 2/2. Urine cx was positive for gram negative sho. She denies fever, chills, n/v. Functional Status: Reports: Pain Controlled - Review of Systems General: Reports: Malaise HEENT: Reports: No Symptoms Pulmonary: Reports: Cough Cardiovascular: Reports: No Symptoms Gastrointestinal: Reports: Other (right flank pains.) Genitourinary: Reports: Flank Pain Musculoskeletal: Reports: No Symptoms Skin: Reports: No Symptoms Neurological: Reports: No Symptoms Psychiatric: Reports: No Symptoms - Patient Data Vitals - Most Recent: Last Vital Signs Temp 99.0 F 05/13/19 07:33 Pulse 92 05/13/19 07:33 Resp 18 05/13/19 07:33 BP 92/50 L 05/13/19 08:28 Pulse Ox 100 05/13/19 07:33 Weight - Most Recent: 164 lb I&O - Last 24 Hours: Intake & Output 05/12/19 05/13/19 05/13/19 22:59 06:59 14:59 Intake Total 500 500 Output Total 200 450 Balance 500 300 -450 Lab Results Last 24 Hours: Laboratory Results - last 24 hr 05/12/19 05/12/19 05/12/19 Range/Units 16:04 16:04 16:50 WBC 21.1 H (5.0-10.0) 10^3/uL RBC 4.87 (4.2-5.4) 10^6/uL Hgb 14.0 (12.0-16.0) g/dL Hct 41.3 (37.0-47.0) % MCV 84.8 (80-100) fL MCH 28.7 (27.0-34.0) pg MCHC 33.9 (33.0-35.0) g/dL Plt Count 339 (150-450) 10^3/uL Neut % (Auto) 93.0 H (42.2-75.2) % Lymph % (Auto) 3.9 L (20.5-50.1) % [place] % (Auto) 2.7 (2-8) % Eos % (Auto) 0.2 L (1.0-3.0) % Baso % (Auto) 0.2 (0.0-1.0) % PT (9.0-12.0) SEC INR (0.9-1.2) D-Dimer, Quantitative (0-400) ng/mL Sodium (136-145) mmol/L Potassium (3.5-5.1) mmol/L Chloride (98-107) mmol/L Carbon Dioxide (21-32) mmol/L Anion Gap (7-13) mEq/L BUN (7-18) mg/dL Creatinine (0.55-1.02) mg/dL Est Cr Clr Drug Dosing mL/min Estimated GFR (MDRD) BUN/Creatinine Ratio (No establ ref range) Glucose (74-99) mg/dL POC Glucose (70-105) mg/dl Hemoglobin A1c (<5.7) % Lactic Acid (0.4-2.0) mmol/L Calcium (8.5-10.1) mg/dL Phosphorus (2.6-4.7) mg/dL Magnesium (1.8-2.4) mg/dL Ferritin (8-252) mg/mL Total Bilirubin (0.2-1.0) mg/dL Direct Bilirubin (0.0-0.2) mg/dL Indirect Bilirubin AST (15-37) U/L ALT (14-59) U/L Alkaline Phosphatase (46-116) U/L C-Reactive Protein (0.0-0.9) mg/dL Total Protein (6.4-8.2) g/dL Albumin (3.4-5.0) g/dL Globulin Albumin/Globulin Ratio Urine Color Dark yellow (YELLOW) Urine Appearance Cloudy (CLEAR) Urine pH 5.5 (5.0-9.0) Ur Specific [place] >= 1.030 (1.005-1.030) Urine Protein 100 H (NEGATIVE) Urine Glucose (UA) 500 H (NEGATIVE) Urine Ketones Negative (NEGATIVE) Urine Occult Blood Moderate H (NEGATIVE) Urine Nitrite Positive H (NEGATIVE) Urine Bilirubin Negative (NEGATIVE) Urine Urobilinogen 0.2 (0.2-1.0) mg/dL Ur Leukocyte Esterase Small H (NEGATIVE) Urine RBC Packed H /HPF Urine WBC Packed H (0-5/HPF) /HPF Ur Epithelial Cells Few (NOT SEEN) /HPF Urine Bacteria Moderate H (0-FEW/HPF) /HPF Urine HCG, Qual Negative 05/12/19 05/12/19 05/12/19 Range/Units 16:50 16:50 18:15 WBC (5.0-10.0) 10^3/uL RBC (4.2-5.4) 10^6/uL Hgb (12.0-16.0) g/dL Hct (37.0-47.0) % MCV (80-100) fL MCH (27.0-34.0) pg MCHC (33.0-35.0) g/dL Plt Count (150-450) 10^3/uL Neut % (Auto) (42.2-75.2) % Lymph % (Auto) (20.5-50.1) % [place] % (Auto) (2-8) % Eos % (Auto) (1.0-3.0) % Baso % (Auto) (0.0-1.0) % PT (9.0-12.0) SEC INR (0.9-1.2) D-Dimer, Quantitative (0-400) ng/mL Sodium 133 L (136-145) mmol/L Potassium 3.8 (3.5-5.1) mmol/L Chloride 96 L (98-107) mmol/L Carbon Dioxide 23 (21-32) mmol/L Anion Gap 17.8 H (7-13) mEq/L BUN 12 (7-18) mg/dL Creatinine 0.79 (0.55-1.02) mg/dL Est Cr Clr Drug Dosing 90.29 mL/min Estimated GFR (MDRD) > 60 BUN/Creatinine Ratio 15.2 (No establ ref range) Glucose 300 H (74-99) mg/dL POC Glucose 177 H (70-105) mg/dl Hemoglobin A1c (<5.7) % Lactic Acid 3.5 H* (0.4-2.0) mmol/L Calcium 8.1 L (8.5-10.1) mg/dL Phosphorus (2.6-4.7) mg/dL Magnesium (1.8-2.4) mg/dL Ferritin (8-252) mg/mL Total Bilirubin 0.9 (0.2-1.0) mg/dL Direct Bilirubin (0.0-0.2) mg/dL Indirect Bilirubin AST 32 (15-37) U/L ALT 145 H (14-59) U/L Alkaline Phosphatase 142 H (46-116) U/L C-Reactive Protein (0.0-0.9) mg/dL Total Protein 8.0 (6.4-8.2) g/dL Albumin 3.3 L (3.4-5.0) g/dL Globulin 4.7 Albumin/Globulin Ratio 0.70 Urine Color (YELLOW) Urine Appearance (CLEAR) Urine pH (5.0-9.0) Ur Specific [place] (1.005-1.030) Urine Protein (NEGATIVE) Urine Glucose (UA) (NEGATIVE) Urine Ketones (NEGATIVE) Urine Occult Blood (NEGATIVE) Urine Nitrite (NEGATIVE) Urine Bilirubin (NEGATIVE) Urine Urobilinogen (0.2-1.0) mg/dL Ur Leukocyte Esterase (NEGATIVE) Urine RBC /HPF Urine WBC (0-5/HPF) /HPF Ur Epithelial Cells (NOT SEEN) /HPF Urine Bacteria (0-FEW/HPF) /HPF Urine HCG, Qual 05/12/19 05/12/19 05/12/19 Range/Units 20:59 20:59 20:59 WBC (5.0-10.0) 10^3/uL RBC (4.2-5.4) 10^6/uL Hgb (12.0-16.0) g/dL Hct (37.0-47.0) % MCV (80-100) fL MCH (27.0-34.0) pg MCHC (33.0-35.0) g/dL Plt Count (150-450) 10^3/uL Neut % (Auto) (42.2-75.2) % Lymph % (Auto) (20.5-50.1) % [place] % (Auto) (2-8) % Eos % (Auto) (1.0-3.0) % Baso % (Auto) (0.0-1.0) % PT (9.0-12.0) SEC INR (0.9-1.2) D-Dimer, Quantitative 685 H (0-400) ng/mL Sodium (136-145) mmol/L Potassium (3.5-5.1) mmol/L Chloride (98-107) mmol/L Carbon Dioxide (21-32) mmol/L Anion Gap (7-13) mEq/L BUN (7-18) mg/dL Creatinine (0.55-1.02) mg/dL Est Cr Clr Drug Dosing mL/min Estimated GFR (MDRD) BUN/Creatinine Ratio (No establ ref range) Glucose (74-99) mg/dL POC Glucose (70-105) mg/dl Hemoglobin A1c (<5.7) % Lactic Acid 4.4 H* (0.4-2.0) mmol/L Calcium (8.5-10.1) mg/dL Phosphorus 1.4 L (2.6-4.7) mg/dL Magnesium 0.9 L (1.8-2.4) mg/dL Ferritin (8-252) mg/mL Total Bilirubin (0.2-1.0) mg/dL Direct Bilirubin (0.0-0.2) mg/dL Indirect Bilirubin AST (15-37) U/L ALT (14-59) U/L Alkaline Phosphatase (46-116) U/L C-Reactive Protein (0.0-0.9) mg/dL Total Protein (6.4-8.2) g/dL Albumin (3.4-5.0) g/dL Globulin Albumin/Globulin Ratio Urine Color (YELLOW) Urine Appearance (CLEAR) Urine pH (5.0-9.0) Ur Specific [place] (1.005-1.030) Urine Protein (NEGATIVE) Urine Glucose (UA) (NEGATIVE) Urine Ketones (NEGATIVE) Urine Occult Blood (NEGATIVE) Urine Nitrite (NEGATIVE) Urine Bilirubin (NEGATIVE) Urine Urobilinogen (0.2-1.0) mg/dL Ur Leukocyte Esterase (NEGATIVE) Urine RBC /HPF Urine WBC (0-5/HPF) /HPF Ur Epithelial Cells (NOT SEEN) /HPF Urine Bacteria (0-FEW/HPF) /HPF Urine HCG, Qual 05/12/19 05/12/19 05/12/19 Range/Units 20:59 20:59 20:59 WBC (5.0-10.0) 10^3/uL RBC (4.2-5.4) 10^6/uL Hgb (12.0-16.0) g/dL Hct (37.0-47.0) % MCV (80-100) fL MCH (27.0-34.0) pg MCHC (33.0-35.0) g/dL Plt Count (150-450) 10^3/uL Neut % (Auto) (42.2-75.2) % Lymph % (Auto) (20.5-50.1) % [place] % (Auto) (2-8) % Eos % (Auto) (1.0-3.0) % Baso % (Auto) (0.0-1.0) % PT 10.4 (9.0-12.0) SEC INR 1.1 (0.9-1.2) D-Dimer, Quantitative (0-400) ng/mL Sodium (136-145) mmol/L Potassium (3.5-5.1) mmol/L Chloride (98-107) mmol/L Carbon Dioxide (21-32) mmol/L Anion Gap (7-13) mEq/L BUN (7-18) mg/dL Creatinine (0.55-1.02) mg/dL Est Cr Clr Drug Dosing mL/min Estimated GFR (MDRD) BUN/Creatinine Ratio (No establ ref range) Glucose (74-99) mg/dL POC Glucose (70-105) mg/dl Hemoglobin A1c (<5.7) % Lactic Acid (0.4-2.0) mmol/L Calcium (8.5-10.1) mg/dL Phosphorus (2.6-4.7) mg/dL Magnesium (1.8-2.4) mg/dL Ferritin 167 (8-252) mg/mL Total Bilirubin (0.2-1.0) mg/dL Direct Bilirubin (0.0-0.2) mg/dL Indirect Bilirubin AST (15-37) U/L ALT (14-59) U/L Alkaline Phosphatase (46-116) U/L C-Reactive Protein 11.9 H (0.0-0.9) mg/dL Total Protein (6.4-8.2) g/dL Albumin (3.4-5.0) g/dL Globulin Albumin/Globulin Ratio Urine Color (YELLOW) Urine Appearance (CLEAR) Urine pH (5.0-9.0) Ur Specific [place] (1.005-1.030) Urine Protein (NEGATIVE) Urine Glucose (UA) (NEGATIVE) Urine Ketones (NEGATIVE) Urine Occult Blood (NEGATIVE) Urine Nitrite (NEGATIVE) Urine Bilirubin (NEGATIVE) Urine Urobilinogen (0.2-1.0) mg/dL Ur Leukocyte Esterase (NEGATIVE) Urine RBC /HPF Urine WBC (0-5/HPF) /HPF Ur Epithelial Cells (NOT SEEN) /HPF Urine Bacteria (0-FEW/HPF) /HPF Urine HCG, Qual 05/12/19 05/13/19 05/13/19 Range/Units 21:11 00:19 04:10 WBC 23.7 H (5.0-10.0) 10^3/uL RBC 3.74 L (4.2-5.4) 10^6/uL Hgb 11.0 L D (12.0-16.0) g/dL Hct 32.4 L (37.0-47.0) % MCV 86.6 (80-100) fL MCH 29.4 (27.0-34.0) pg MCHC 34.0 (33.0-35.0) g/dL Plt Count 253 D (150-450) 10^3/uL Neut % (Auto) (42.2-75.2) % Lymph % (Auto) (20.5-50.1) % [place] % (Auto) (2-8) % Eos % (Auto) (1.0-3.0) % Baso % (Auto) (0.0-1.0) % PT (9.0-12.0) SEC INR (0.9-1.2) D-Dimer, Quantitative (0-400) ng/mL Sodium (136-145) mmol/L Potassium (3.5-5.1) mmol/L Chloride (98-107) mmol/L Carbon Dioxide (21-32) mmol/L Anion Gap (7-13) mEq/L BUN (7-18) mg/dL Creatinine (0.55-1.02) mg/dL Est Cr Clr Drug Dosing mL/min Estimated GFR (MDRD) BUN/Creatinine Ratio (No establ ref range) Glucose (74-99) mg/dL POC Glucose 217 H (70-105) mg/dl Hemoglobin A1c (<5.7) % Lactic Acid 2.8 H* (0.4-2.0) mmol/L Calcium (8.5-10.1) mg/dL Phosphorus (2.6-4.7) mg/dL Magnesium (1.8-2.4) mg/dL Ferritin (8-252) mg/mL Total Bilirubin (0.2-1.0) mg/dL Direct Bilirubin (0.0-0.2) mg/dL Indirect Bilirubin AST (15-37) U/L ALT (14-59) U/L Alkaline Phosphatase (46-116) U/L C-Reactive Protein (0.0-0.9) mg/dL Total Protein (6.4-8.2) g/dL Albumin (3.4-5.0) g/dL Globulin Albumin/Globulin Ratio Urine Color (YELLOW) Urine Appearance (CLEAR) Urine pH (5.0-9.0) Ur Specific [place] (1.005-1.030) Urine Protein (NEGATIVE) Urine Glucose (UA) (NEGATIVE) Urine Ketones (NEGATIVE) Urine Occult Blood (NEGATIVE) Urine Nitrite (NEGATIVE) Urine Bilirubin (NEGATIVE) Urine Urobilinogen (0.2-1.0) mg/dL Ur Leukocyte Esterase (NEGATIVE) Urine RBC /HPF Urine WBC (0-5/HPF) /HPF Ur Epithelial Cells (NOT SEEN) /HPF Urine Bacteria (0-FEW/HPF) /HPF Urine HCG, Qual 05/13/19 05/13/19 05/13/19 Range/Units 04:10 04:10 04:10 WBC (5.0-10.0) 10^3/uL RBC (4.2-5.4) 10^6/uL Hgb (12.0-16.0) g/dL Hct (37.0-47.0) % MCV (80-100) fL MCH (27.0-34.0) pg MCHC (33.0-35.0) g/dL Plt Count (150-450) 10^3/uL Neut % (Auto) (42.2-75.2) % Lymph % (Auto) (20.5-50.1) % [place] % (Auto) (2-8) % Eos % (Auto) (1.0-3.0) % Baso % (Auto) (0.0-1.0) % PT (9.0-12.0) SEC INR (0.9-1.2) D-Dimer, Quantitative (0-400) ng/mL Sodium 135 L (136-145) mmol/L Potassium 3.6 (3.5-5.1) mmol/L Chloride 103 (98-107) mmol/L Carbon Dioxide 23 (21-32) mmol/L Anion Gap 12.6 (7-13) mEq/L BUN 18 (7-18) mg/dL Creatinine 0.91 (0.55-1.02) mg/dL Est Cr Clr Drug Dosing 78.38 mL/min Estimated GFR (MDRD) > 60 BUN/Creatinine Ratio (No establ ref range) Glucose 295 H (74-99) mg/dL POC Glucose (70-105) mg/dl Hemoglobin A1c (<5.7) % Lactic Acid 1.3 (0.4-2.0) mmol/L Calcium 6.9 L (8.5-10.1) mg/dL Phosphorus (2.6-4.7) mg/dL Magnesium 2.1 (1.8-2.4) mg/dL Ferritin (8-252) mg/mL Total Bilirubin 0.6 (0.2-1.0) mg/dL Direct Bilirubin 0.3 H (0.0-0.2) mg/dL Indirect Bilirubin 0.3 AST 39 H (15-37) U/L ALT 90 H (14-59) U/L Alkaline Phosphatase 87 (46-116) U/L C-Reactive Protein (0.0-0.9) mg/dL Total Protein 5.5 L (6.4-8.2) g/dL Albumin 2.1 L (3.4-5.0) g/dL Globulin 3.4 Albumin/Globulin Ratio 0.62 Urine Color (YELLOW) Urine Appearance (CLEAR) Urine pH (5.0-9.0) Ur Specific [place] (1.005-1.030) Urine Protein (NEGATIVE) Urine Glucose (UA) (NEGATIVE) Urine Ketones (NEGATIVE) Urine Occult Blood (NEGATIVE) Urine Nitrite (NEGATIVE) Urine Bilirubin (NEGATIVE) Urine Urobilinogen (0.2-1.0) mg/dL Ur Leukocyte Esterase (NEGATIVE) Urine RBC /HPF Urine WBC (0-5/HPF) /HPF Ur Epithelial Cells (NOT SEEN) /HPF Urine Bacteria (0-FEW/HPF) /HPF Urine HCG, Qual 05/13/19 05/13/19 Range/Units 04:10 07:46 WBC (5.0-10.0) 10^3/uL RBC (4.2-5.4) 10^6/uL Hgb (12.0-16.0) g/dL Hct (37.0-47.0) % MCV (80-100) fL MCH (27.0-34.0) pg MCHC (33.0-35.0) g/dL Plt Count (150-450) 10^3/uL Neut % (Auto) (42.2-75.2) % Lymph % (Auto) (20.5-50.1) % [place] % (Auto) (2-8) % Eos % (Auto) (1.0-3.0) % Baso % (Auto) (0.0-1.0) % PT (9.0-12.0) SEC INR (0.9-1.2) D-Dimer, Quantitative (0-400) ng/mL Sodium (136-145) mmol/L Potassium (3.5-5.1) mmol/L Chloride (98-107) mmol/L Carbon Dioxide (21-32) mmol/L Anion Gap (7-13) mEq/L BUN (7-18) mg/dL Creatinine (0.55-1.02) mg/dL Est Cr Clr Drug Dosing mL/min Estimated GFR (MDRD) BUN/Creatinine Ratio (No establ ref range) Glucose (74-99) mg/dL POC Glucose 321 H (70-105) mg/dl Hemoglobin A1c 9.7 H (<5.7) % Lactic Acid (0.4-2.0) mmol/L Calcium (8.5-10.1) mg/dL Phosphorus (2.6-4.7) mg/dL Magnesium (1.8-2.4) mg/dL Ferritin (8-252) mg/mL Total Bilirubin (0.2-1.0) mg/dL Direct Bilirubin (0.0-0.2) mg/dL Indirect Bilirubin AST (15-37) U/L ALT (14-59) U/L Alkaline Phosphatase (46-116) U/L C-Reactive Protein (0.0-0.9) mg/dL Total Protein (6.4-8.2) g/dL Albumin (3.4-5.0) g/dL Globulin Albumin/Globulin Ratio Urine Color (YELLOW) Urine Appearance (CLEAR) Urine pH (5.0-9.0) Ur Specific [place] (1.005-1.030) Urine Protein (NEGATIVE) Urine Glucose (UA) (NEGATIVE) Urine Ketones (NEGATIVE) Urine Occult Blood (NEGATIVE) Urine Nitrite (NEGATIVE) Urine Bilirubin (NEGATIVE) Urine Urobilinogen (0.2-1.0) mg/dL Ur Leukocyte Esterase (NEGATIVE) Urine RBC /HPF Urine WBC (0-5/HPF) /HPF Ur Epithelial Cells (NOT SEEN) /HPF Urine Bacteria (0-FEW/HPF) /HPF Urine HCG, Qual Dexter Results Last 24 Hours: Microbiology 05/13/19 09:45 Anaerobic Blood Culture - Final Blood - Venous - Lab Draw 05/12/19 16:04 Urine Culture - Preliminary Urine, Voided 05/12/19 16:50 Aerobic Blood Culture - Preliminary Blood - Venous 05/12/19 17:36 Influenza Type A Antigen Screen - Final Nasal, Unspecified NEGATIVE INFLUENZA A VIRUS AG REFERENCE RANGE: NEGATIVE Influenza Type B Antigen Screen - Final NEGATIVE INFLUENZA B VIRUS AG REFERENCE RANGE: NEGATIVE Med Orders - Current: Current Medications Acetaminophen (Tylenol) 650 mg PO Q4H PRN PRN Reason: Pain (Mild 1-3)/fever Last Admin: 05/13/19 09:06 Dose: 650 mg Enoxaparin Sodium (Lovenox) 40 mg SUBCUT DAILY ON LICENSE OF [facility] Last Admin: 05/13/19 08:27 Dose: 40 mg Escitalopram Oxalate (Lexapro) 10 mg PO DAILY ON LICENSE OF [facility] Last Admin: 05/13/19 08:27 Dose: 10 mg Gabapentin (Neurontin) 600 mg PO TID ON LICENSE OF [facility] Last Admin: 05/13/19 08:27 Dose: 600 mg Sodium Chloride (Normal Saline) 1,000 mls @ 125 mls/hr IV ASDIRECTED ON LICENSE OF [facility] Last Admin: 05/12/19 20:19 Dose: 125 mls/hr Piperacillin Sod/Tazobactam (Sod 3.375 gm/ Sodium Chloride) 100 mls @ 200 mls/ hr IV Q6HR ON LICENSE OF [facility] Calcium Gluconate 1 gm/ Sodium (Chloride) 60 mls @ 120 mls/hr IV ONETIME ONE Stop: 05/13/19 10:29 Insulin Glargine (Lantus) 35 unit SUBCUT BEDTIME ON LICENSE OF [facility] Last Admin: 05/12/19 21:16 Dose: 35 units Insulin Human Lispro (Humalog) 15 unit SUBCUT TIDMEALS ON LICENSE OF [facility] Lisinopril (Prinivil) 5 mg PO DAILY ON LICENSE OF [facility] Last Admin: 05/13/19 08:28 Dose: Not Given Ondansetron HCl (Zofran) 4 mg IVPUSH Q6H PRN PRN Reason: Nausea/Vomiting Quetiapine Fumarate (Seroquel) 100 mg PO BEDTIME ON LICENSE OF [facility] Last Admin: 05/12/19 21:16 Dose: 100 mg Sodium Chloride (Saline Flush) 10 ml FLUSH ASDIRECTED PRN PRN Reason: Keep Vein Open Last Admin: 05/12/19 16:48 Dose: 10 ml Sodium Phosphate (Neutra-Phos) 250 mg PO QID ON LICENSE OF [facility] Last Admin: 05/13/19 09:07 Dose: 250 mg Discontinued Medications Acetaminophen (Tylenol Extra Strength) 1,000 mg PO NOW ONE Stop: 05/12/19 19:37 Last Admin: 05/12/19 19:50 Dose: 1,000 mg Sodium Chloride (Normal Saline) 1,000 mls @ 999 mls/hr IV .BOLUS ONE Stop: 05/12/19 18:26 Last Admin: 05/12/19 16:50 Dose: 999 mls/hr Sodium Chloride (Normal Saline) 1,000 mls @ 999 mls/hr IV .BOLUS ONE Stop: 05/12/19 18:36 Last Admin: 05/12/19 17:50 Dose: 999 mls/hr Piperacillin Sod/Tazobactam (Sod 3.375 gm/ Sodium Chloride) 100 mls @ 200 mls/ hr IV ONETIME ONE Stop: 05/12/19 19:09 Last Admin: 05/12/19 19:00 Dose: 200 mls/hr Piperacillin Sod/Tazobactam (Sod 3.375 gm/ Sodium Chloride) 100 mls @ 200 mls/ hr IV Q6H JONATHAN Last Admin: 05/13/19 06:09 Dose: 200 mls/hr Sodium Chloride (Normal Saline) 1,000 mls @ 999 mls/hr IV .BOLUS ONE Stop: 05/12/19 23:03 Last Admin: 05/12/19 23:29 Dose: 999 mls/hr Magnesium Sulfate 2 gm/ Premix 50 mls @ 25 mls/hr IV ONETIME ONE Stop: 05/13/19 00:06 Last Admin: 05/12/19 23:25 Dose: 25 mls/hr Ibuprofen (Motrin) 400 mg PO Q4H ONE Stop: 05/12/19 19:38 Last Admin: 05/12/19 19:49 Dose: 400 mg Ibuprofen (Motrin) 600 mg PO TID PRN PRN Reason: Pain Last Admin: 05/13/19 07:30 Dose: 600 mg Insulin Glargine (Lantus) 10 unit SUBCUT BEDTIME JONATHAN Insulin Human Lispro (Humalog) 5 unit SUBCUT TIDMEALS ON LICENSE OF [facility] Insulin Human Lispro (Humalog) 15 unit SUBCUT TID JONATHAN Last Admin: 05/13/19 08:26 Dose: 15 units Insulin Human Regular (Humulin R) 10 unit IV ONETIME ONE Stop: 05/12/19 17:34 Last Admin: 05/12/19 17:41 Dose: 10 units Iopamidol (Isovue-370 (76%)) 100 ml IVPUSH ONETIME ONE Stop: 05/12/19 22:01 Last Admin: 05/12/19 22:15 Dose: 100 ml Morphine Sulfate (Morphine) 2 mg IVPUSH ONETIME ONE Stop: 05/12/19 17:17 Last Admin: 05/12/19 17:22 Dose: 2 mg Morphine Sulfate (Morphine) 2 mg IVPUSH ONETIME ONE Stop: 05/12/19 19:39 Last Admin: 05/12/19 19:50 Dose: 2 mg Oxycodone/Acetaminophen (Percocet 325-5 Mg) 1 tab PO Q6H PRN PRN Reason: Pain (moderate 4-6) - Exam Quality Assessment: DVT Prophylaxis General: Alert, Oriented HEENT: Pupils Equal, Pupils Reactive, EOMI, Mucous Membr. Moist/[place] Neck: Supple Lungs: Clear to Auscultation, Normal Respiratory Effort Cardiovascular: Regular Rate, Regular Rhythm GI/Abdominal Exam: Other (Mild right CVA tenderness) (Female) Exam: Normal External Exam, Normal Speculum Exam, Normal Bimanual Exam Back Exam: Normal Inspection, Full Range of Motion Extremities: Normal Inspection, Normal Range of Motion, Non-Tender, No Pedal Edema, Normal Capillary Refill Skin: Warm, Dry, Intact Wound/Incisions: Healing Well Neurological: No New Focal Deficit Psy/Mental Status: Alert, Normal Affect, Normal Mood Sepsis Event Note - Evaluation Sepsis Screening Result: Severe Sepsis Risk - Focused Exam Vital Signs: Vital Signs Temp Temp Pulse Resp BP BP Pulse Ox 05/13/19 08:28 92/50 L 05/13/19 07:33 99.0 F 92 18 92/50 L 100 05/13/19 04:00 98 F 110 H 16 82/52 L 100 05/13/19 00:00 96.7 F L 105 H 16 86/44 L 98 Date Exam was Performed: 05/13/19 Time Exam was Performed: 10:27 - Problem List & Annotations (1) UTI, Urinary tract infectious disease SNOMED Code(s): 85639769 Code(s): N39.0 - URINARY TRACT INFECTION, SITE NOT SPECIFIED Status: Acute Current Visit: No - Problem List Review Problem List Initiated/Reviewed/Updated: Yes - My Orders Last 24 Hours: My Active Orders 05/12/19 19:55 Ambulate [RC] ASDIRECTED Blood Glucose Check, Bedside [RC] QIDACANDBED Acetaminophen [Tylenol] 650 mg PO Q4H PRN Ondansetron [Zofran] 4 mg IVPUSH Q6H PRN Resuscitation Status Routine 05/12/19 19:56 Notify Provider Vital Signs [RC] ASDIRECTED Oxygen Therapy [RC] .PRN VTE/DVT Education [RC] PER UNIT ROUTINE Vital Signs [RC] 20,00,04,08,12,16 05/12/19 20:00 Sodium Chloride 0.9% [Normal Saline] 1,000 ml IV ASDIRECTED 05/12/19 20:59 PROCALCITONIN [REF] Stat 05/12/19 21:00 Gabapentin [Neurontin] 600 mg PO TID Insulin Glarg,Human.Rec.Analog [LantUS] 35 unit SUBCUT BEDTIME QUEtiapine [SEROqueL] 100 mg PO BEDTIME 05/12/19 22:20 CORONAVIRUS COVID-19 PCR PHL [MREF] Stat 05/12/19 Dinner Consistent Carbohydrate Diet [DIET] 05/13/19 08:53 Blood Culture x2 Reflex Set [OM.PC] Stat 05/13/19 09:00 Enoxaparin [Lovenox] 40 mg SUBCUT DAILY Escitalopram [Lexapro] 10 mg PO DAILY Phosphorus #1 [Neutra-Phos] 250 mg PO QID lisinopriL [Prinivil] 5 mg PO DAILY 05/13/19 09:40 CULTURE BLOOD [BC] Stat 05/13/19 09:45 CULTURE BLOOD [BC] Stat 05/13/19 10:00 Calcium Gluconate 1 gm Sodium Chloride 0.9% [Normal Saline] 50 ml IV ONETIME 05/13/19 12:00 Insulin Lispro [HumaLOG] 15 unit SUBCUT TIDMEALS Piperacillin/Tazobactam [Zosyn] 3.375 gm Sodium Chloride 0.9% [Normal Saline] 100 ml IV Q6HR 05/14/19 07:00 BASIC METABOLIC PANEL,BMP [CHEM] DAILY CBC W/O DIFF,HEMOGRAM [HEME] DAILY 05/15/19 07:00 BASIC METABOLIC PANEL,BMP [CHEM] DAILY CBC W/O DIFF,HEMOGRAM [HEME] DAILY - Plan Plan:: #Acute pyelonephritis -Resolving -wbc trended up -Blood and urine cx positive for gram negative rods -Repeat Blood cx in process -IVF -Continue IV Zosyn -Pain control with percocet #Sepsis due to above -Resolving -Lactate now within normal limits -IVF -Continue IV Zosyn #Upper respiratory infections plus fever -Ferritin wnl, CRP elevated, low lymphocytes, D-dimer elevated -CT chest: report pending -Coronavirus COVID-19 PCR pending -Continue supportive care -Continue droplet and contact isolation #Anion Gap metabolic acidosis due to above -Resolved #Hypocalcemia -Calcium gluconate x 1 -Recheck level #Hypomagnesemia/hypophosphatemia -Replace per protocol #Mild hyponatremia -Resolved #Elevate LFTs -Improving -Monitor liver enzymes closely -RUQ US #Type II Diabetes -Suboptimally controlled -A1c 9.7 -Continue to hold Metformin -Insulin Glargin plus Lispro -Sliding scale insulin for optimal glycemic control -Carb consistent diet -Accucheks -Hypoglycemic protocol #Depression -Continue home meds #Obesity -Advised on weight reduction measures #Full code
[2019-05-13] MEDS: Sodium Chloride 0.9% 1,000 ML IV SCH (13:15)
[2019-05-13] MEDS: Acetaminophen/oxyCODONE 325-5 MG Tab PO PRN ×2 (18:39→23:50)
[2019-05-13] MEDS: Lidocaine 5% 700 MG Patch TOP SCH ×2 (20:25→22:44)
[2019-05-13] MEDS ORDERED: REMOVE LIDOCAINE TRDERM SCH (21:00)
[2019-05-13] MEDS: Insulin Glarg,Human.Rec.Analog 100 Unit/ML SUBCUT SCH (21:21)
[2019-05-13] MEDS: QUEtiapine 100 MG Tab PO SCH (21:24)
[2019-05-14] MEDS: Piperacillin/Tazobactam 3.375 GM in Sodium Chloride 0.9% 100 ML IV SCH ×5 (00:05→23:59)
[2019-05-14] MEDS: Acetaminophen/oxyCODONE 325-5 MG Tab PO PRN ×3 (04:40→19:21)
[2019-05-14] MEDS: Acetaminophen 325 MG Tab PO PRN (04:41)
[2019-05-14 06:57] LABS: ANION GAP 13.2 mEq/L (7-13); CHLORIDE,CL 102 mmol/L (98-107); SODIUM,NA 135 mmol/L (136-145)
[2019-05-14] MEDS: Insulin Lispro 100 Units/ML 3 ML Vial SUBCUT SCH ×7 (08:17→20:47)
[2019-05-14] MEDS: Enoxaparin 40 MG/0.4 ML Syringe SUBCUT SCH (08:18)
[2019-05-14] MEDS: Gabapentin 300 MG Cap PO SCH ×3 (08:19→20:55)
[2019-05-14] MEDS: Lisinopril 5 MG Tab PO SCH (08:20)
[2019-05-14] MEDS ORDERED: Ibuprofen 400 MG Tab PO PRN ×2 (08:20→09:20)
[2019-05-14] MEDS: Escitalopram 10 MG Tab PO SCH (08:20)
[2019-05-14] MEDS: REMOVE LIDOCAINE TRDERM SCH (08:21)
[2019-05-14] MEDS ORDERED: Potassium Chloride 10 MEQ in Premix Bag 1 BAG IV SCH (09:00)
[2019-05-14] MEDS ORDERED: REMOVE LIDOCAINE TRDERM SCH ×2 (09:00)
[2019-05-14] MEDS ORDERED: Potassium Chloride 20 MEQ in Premix Bag 1 BAG IV SCH ×2 (09:00→11:00)
--- NOTE | 2019-05-14 09:36 | PCM.PN ---
- General Info Date of Service: 05/14/19 Admission Dx/Problem (Free Text): Admission Diagnosis/Problem Admission Diagnosis/Problem Sepsis due to Pyelonephritis Subjective Update: Meli is a 33 y/o F with PMH of recurrent Kidney/UTI, depression, Type 2 diabetes, obesity, who presented to the ED for evaluation of fever, chills and right flank pains that started 3 days ago. She was found to have Sepsis due to pyelonephritis. Blood cx was positive for gram negative rods 2/2. Urine cx was positive for gram negative sho. She was started on IV Zosyn. Patient is also being screened for COVID-19. She had cough, fever, upper respiratory symptoms. Today she is doing ok. She still reports right flank pains. Pain is sharp, 7/10 , non-radiating, relieve with Motrin. She says she is feeling better aside the right flank pain. She denies fever, chills, n/v. Vitals stable. She remain afebrile. Functional Status: Reports: Pain Controlled, Tolerating Diet, Ambulating, Urinating - Review of Systems General: Reports: No Symptoms HEENT: Reports: No Symptoms Pulmonary: Reports: No Symptoms Cardiovascular: Reports: No Symptoms Gastrointestinal: Reports: No Symptoms, Other (right flank pain) Genitourinary: Reports: No Symptoms Musculoskeletal: Reports: No Symptoms Skin: Reports: No Symptoms Neurological: Reports: No Symptoms Psychiatric: Reports: No Symptoms - Patient Data Vitals - Most Recent: Last Vital Signs Temp 100.0 F 05/14/19 08:12 Pulse 97 05/14/19 08:12 Resp 20 05/14/19 08:12 BP 123/80 05/14/19 08:20 Pulse Ox 98 05/14/19 08:12 Weight - Most Recent: 164 lb I&O - Last 24 Hours: Intake & Output 05/13/19 05/14/19 05/14/19 22:59 06:59 14:59 Intake Total 2257 1116 Output Total 3150 Balance 2257 -2034 Lab Results Last 24 Hours: Laboratory Results - last 24 hr 05/12/19 05/13/19 05/13/19 Range/Units 20:59 11:19 16:29 WBC (5.0-10.0) 10^3/uL RBC (4.2-5.4) 10^6/uL Hgb (12.0-16.0) g/dL Hct (37.0-47.0) % MCV (80-100) fL MCH (27.0-34.0) pg MCHC (33.0-35.0) g/dL Plt Count (150-450) 10^3/uL Sodium (136-145) mmol/L Potassium (3.5-5.1) mmol/L Chloride (98-107) mmol/L Carbon Dioxide (21-32) mmol/L Anion Gap (7-13) mEq/L BUN (7-18) mg/dL Creatinine (0.55-1.02) mg/dL Est Cr Clr Drug Dosing mL/min Estimated GFR (MDRD) Glucose (74-99) mg/dL POC Glucose 337 H 214 H (70-105) mg/dl Calcium (8.5-10.1) mg/dL Phosphorus (2.6-4.7) mg/dL Magnesium (1.8-2.4) mg/dL Total Bilirubin (0.2-1.0) mg/dL Direct Bilirubin (0.0-0.2) mg/dL Indirect Bilirubin AST (15-37) U/L ALT (14-59) U/L Alkaline Phosphatase (46-116) U/L Total Protein (6.4-8.2) g/dL Albumin (3.4-5.0) g/dL Globulin Albumin/Globulin Ratio Procalcitonin 2.21 H (<0.10) ng/mL 05/13/19 05/14/19 05/14/19 Range/Units 21:11 06:15 06:15 WBC 17.1 H (5.0-10.0) 10^3/uL RBC 3.56 L (4.2-5.4) 10^6/uL Hgb 10.4 L (12.0-16.0) g/dL Hct 31.1 L (37.0-47.0) % MCV 87.4 (80-100) fL MCH 29.2 (27.0-34.0) pg MCHC 33.4 (33.0-35.0) g/dL Plt Count 222 (150-450) 10^3/uL Sodium 135 L (136-145) mmol/L Potassium 3.2 L (3.5-5.1) mmol/L Chloride 102 (98-107) mmol/L Carbon Dioxide 23 (21-32) mmol/L Anion Gap 13.2 H (7-13) mEq/L BUN 8 (7-18) mg/dL Creatinine 0.60 (0.55-1.02) mg/dL Est Cr Clr Drug Dosing 118.88 mL/min Estimated GFR (MDRD) > 60 Glucose 275 H (74-99) mg/dL POC Glucose 229 H (70-105) mg/dl Calcium 7.1 L (8.5-10.1) mg/dL Phosphorus (2.6-4.7) mg/dL Magnesium (1.8-2.4) mg/dL Total Bilirubin 0.3 (0.2-1.0) mg/dL Direct Bilirubin 0.1 (0.0-0.2) mg/dL Indirect Bilirubin 0.2 AST 36 (15-37) U/L ALT 82 H (14-59) U/L Alkaline Phosphatase 135 H (46-116) U/L Total Protein 5.8 L (6.4-8.2) g/dL Albumin 2.1 L (3.4-5.0) g/dL Globulin 3.7 Albumin/Globulin Ratio 0.57 Procalcitonin (<0.10) ng/mL 05/14/19 05/14/19 Range/Units 06:15 08:08 WBC (5.0-10.0) 10^3/uL RBC (4.2-5.4) 10^6/uL Hgb (12.0-16.0) g/dL Hct (37.0-47.0) % MCV (80-100) fL MCH (27.0-34.0) pg MCHC (33.0-35.0) g/dL Plt Count (150-450) 10^3/uL Sodium (136-145) mmol/L Potassium (3.5-5.1) mmol/L Chloride (98-107) mmol/L Carbon Dioxide (21-32) mmol/L Anion Gap (7-13) mEq/L BUN (7-18) mg/dL Creatinine (0.55-1.02) mg/dL Est Cr Clr Drug Dosing mL/min Estimated GFR (MDRD) Glucose (74-99) mg/dL POC Glucose 250 H (70-105) mg/dl Calcium (8.5-10.1) mg/dL Phosphorus 2.6 (2.6-4.7) mg/dL Magnesium 1.6 L (1.8-2.4) mg/dL Total Bilirubin (0.2-1.0) mg/dL Direct Bilirubin (0.0-0.2) mg/dL Indirect Bilirubin AST (15-37) U/L ALT (14-59) U/L Alkaline Phosphatase (46-116) U/L Total Protein (6.4-8.2) g/dL Albumin (3.4-5.0) g/dL Globulin Albumin/Globulin Ratio Procalcitonin (<0.10) ng/mL Dexter Results Last 24 Hours: Microbiology 05/12/19 16:50 Aerobic Blood Culture - Preliminary Blood - Venous Anaerobic Blood Culture - Preliminary NO GROWTH AFTER 1 DAY 05/12/19 16:04 Urine Culture - Final Urine, Voided Escherichia Coli 05/12/19 17:29 Aerobic Blood Culture - Preliminary Blood - Venous - Lab Draw NO GROWTH AFTER 1 DAY Anaerobic Blood Culture - Preliminary NO GROWTH AFTER 1 DAY 05/13/19 09:45 Anaerobic Blood Culture - Final Blood - Venous - Lab Draw Med Orders - Current: Current Medications Enoxaparin Sodium (Lovenox) 40 mg SUBCUT DAILY [facility] Last Admin: 05/14/19 08:18 Dose: 40 mg Escitalopram Oxalate (Lexapro) 10 mg PO DAILY [facility] Last Admin: 05/14/19 08:20 Dose: 10 mg Gabapentin (Neurontin) 600 mg PO TID [facility] Last Admin: 05/14/19 08:19 Dose: 600 mg Piperacillin Sod/Tazobactam (Sod 3.375 gm/ Sodium Chloride) 100 mls @ 200 mls/ hr IV Q6HR [facility] Last Admin: 05/14/19 05:55 Dose: 200 mls/hr Magnesium Sulfate/Dextrose 1 (gm/ Premix) 100 mls @ 100 mls/hr IV ONETIME ONE Stop: 05/14/19 10:59 Potassium Chloride 20 meq/ (Premix) 100 mls @ 50 mls/hr IV Q2H [facility] Stop: 05/14/19 12:59 Ibuprofen (Motrin) 600 mg PO TID PRN PRN Reason: Pain (mild 1-3)/Fever Insulin Glargine (Lantus) 35 unit SUBCUT BEDTIME [facility] Last Admin: 05/13/19 21:21 Dose: 35 units Insulin Human Lispro (Humalog) 15 unit SUBCUT TIDMEALS [facility] Last Admin: 05/14/19 08:17 Dose: 15 unit Insulin Human Lispro (Humalog) 0 unit SUBCUT WITHMEALSANDBED [facility]; Protocol Last Admin: 05/14/19 08:18 Dose: 9 units Lidocaine (Lidoderm 5%) 700 mg TOP BEDTIME [facility] Last Admin: 05/13/19 22:44 Dose: Not Given Lisinopril (Prinivil) 5 mg PO DAILY [facility] Last Admin: 05/14/19 08:20 Dose: 5 mg Miscellaneous Information (Remove Patch) 1 ea TRDERM DAILY [facility] Last Admin: 05/14/19 08:21 Dose: Not Given Ondansetron HCl (Zofran) 4 mg IVPUSH Q6H PRN PRN Reason: Nausea/Vomiting Oxycodone/Acetaminophen (Percocet 325-5 Mg) 1 tab PO Q4H PRN PRN Reason: Pain (moderate 4-6) Last Admin: 05/14/19 08:25 Dose: 1 tab Quetiapine Fumarate (Seroquel) 100 mg PO BEDTIME [facility] Last Admin: 05/13/19 21:24 Dose: 100 mg Sodium Chloride (Saline Flush) 10 ml FLUSH ASDIRECTED PRN PRN Reason: Keep Vein Open Last Admin: 05/12/19 16:48 Dose: 10 ml Sodium Phosphate (Neutra-Phos) 250 mg PO QID [facility] Last Admin: 05/13/19 21:23 Dose: 250 mg Discontinued Medications Acetaminophen (Tylenol Extra Strength) 1,000 mg PO NOW ONE Stop: 05/12/19 19:37 Last Admin: 05/12/19 19:50 Dose: 1,000 mg Acetaminophen (Tylenol) 650 mg PO Q4H PRN PRN Reason: Pain (Mild 1-3)/fever Last Admin: 05/14/19 04:41 Dose: 650 mg Sodium Chloride (Normal Saline) 1,000 mls @ 999 mls/hr IV .BOLUS ONE Stop: 05/12/19 18:26 Last Admin: 05/12/19 16:50 Dose: 999 mls/hr Sodium Chloride (Normal Saline) 1,000 mls @ 999 mls/hr IV .BOLUS ONE Stop: 05/12/19 18:36 Last Admin: 05/12/19 17:50 Dose: 999 mls/hr Piperacillin Sod/Tazobactam (Sod 3.375 gm/ Sodium Chloride) 100 mls @ 200 mls/ hr IV ONETIME ONE Stop: 05/12/19 19:09 Last Admin: 05/12/19 19:00 Dose: 200 mls/hr Sodium Chloride (Normal Saline) 1,000 mls @ 125 mls/hr IV ASDIRECTED [facility] Last Admin: 05/13/19 13:15 Dose: 125 mls/hr Piperacillin Sod/Tazobactam (Sod 3.375 gm/ Sodium Chloride) 100 mls @ 200 mls/ hr IV Q6H [facility] Last Admin: 05/13/19 06:09 Dose: 200 mls/hr Sodium Chloride (Normal Saline) 1,000 mls @ 999 mls/hr IV .BOLUS ONE Stop: 05/12/19 23:03 Last Admin: 05/12/19 23:29 Dose: 999 mls/hr Magnesium Sulfate 2 gm/ Premix 50 mls @ 25 mls/hr IV ONETIME ONE Stop: 05/13/19 00:06 Last Admin: 05/12/19 23:25 Dose: 25 mls/hr Calcium Gluconate 1 gm/ Sodium (Chloride) 60 mls @ 120 mls/hr IV ONETIME ONE Stop: 05/13/19 10:29 Last Admin: 05/13/19 11:12 Dose: 120 mls/hr Potassium Chloride 10 meq/ (Premix) 100 mls @ 100 mls/hr IV Q2H [facility] Stop: 05/14/19 11:59 Potassium Chloride 20 meq/ (Premix) 100 mls @ 50 mls/hr IV Q2H [facility] Stop: 05/14/19 10:59 Ibuprofen (Motrin) 400 mg PO Q4H ONE Stop: 05/12/19 19:38 Last Admin: 05/12/19 19:49 Dose: 400 mg Ibuprofen (Motrin) 600 mg PO TID PRN PRN Reason: Pain Last Admin: 05/13/19 07:30 Dose: 600 mg Ibuprofen (Motrin) 400 mg PO TID PRN PRN Reason: Pain (mild 1-3)/Fever Ibuprofen (Motrin) 600 mg PO TID PRN PRN Reason: Pain (mild 1-3)/Fever Insulin Glargine (Lantus) 10 unit SUBCUT BEDTIME [facility] Insulin Human Lispro (Humalog) 5 unit SUBCUT TIDMEALS [facility] Insulin Human Lispro (Humalog) 15 unit SUBCUT TID [facility] Last Admin: 05/13/19 08:26 Dose: 15 units Insulin Human Regular (Humulin R) 10 unit IV ONETIME ONE Stop: 05/12/19 17:34 Last Admin: 05/12/19 17:41 Dose: 10 units Iopamidol (Isovue-370 (76%)) 100 ml IVPUSH ONETIME ONE Stop: 05/12/19 22:01 Last Admin: 05/12/19 22:15 Dose: 100 ml Miscellaneous Information (Remove Patch) 1 ea TRDERM Q12HR [facility] Last Admin: 05/13/19 22:44 Dose: Not Given Morphine Sulfate (Morphine) 2 mg IVPUSH ONETIME ONE Stop: 05/12/19 17:17 Last Admin: 05/12/19 17:22 Dose: 2 mg Morphine Sulfate (Morphine) 2 mg IVPUSH ONETIME ONE Stop: 05/12/19 19:39 Last Admin: 05/12/19 19:50 Dose: 2 mg Oxycodone/Acetaminophen (Percocet 325-5 Mg) 1 tab PO Q6H PRN PRN Reason: Pain (moderate 4-6) - Exam General: Alert, Oriented HEENT: Pupils Equal, Pupils Reactive, EOMI, Mucous Membr. Moist/[place] Neck: Supple Lungs: Clear to Auscultation, Normal Respiratory Effort Cardiovascular: Regular Rate, Regular Rhythm GI/Abdominal Exam: Normal Bowel Sounds, Soft, Non-Tender, No Organomegaly, No Distention, No Abnormal Bruit, No Mass, Pelvis Stable, Other (Right CVA tenderness) (Female) Exam: Normal External Exam, Normal Speculum Exam, Normal Bimanual Exam Back Exam: Normal Inspection, Full Range of Motion Extremities: Normal Inspection, Normal Range of Motion, Non-Tender, No Pedal Edema, Normal Capillary Refill Skin: Warm, Dry, Intact Wound/Incisions: Healing Well Neurological: No New Focal Deficit Psy/Mental Status: Alert, Normal Affect, Normal Mood Sepsis Event Note - Evaluation Sepsis Screening Result: Sepsis Risk - Focused Exam Vital Signs: Vital Signs Temp Pulse Resp BP BP Pulse Ox 05/14/19 08:20 123/80 05/14/19 08:12 100.0 F 97 20 123/80 98 05/14/19 06:00 99.9 F 05/14/19 04:35 101.9 F H 114 H 20 125/69 97 05/14/19 00:00 99.8 F 114 H 18 107/67 97 Date Exam was Performed: 05/14/19 Time Exam was Performed: 09:31 - Problem List & Annotations (1) UTI, Urinary tract infectious disease SNOMED Code(s): 81093742 Code(s): N39.0 - URINARY TRACT INFECTION, SITE NOT SPECIFIED Status: Acute Current Visit: No (2) Hypokalemia SNOMED Code(s): 49353579 Code(s): E87.6 - HYPOKALEMIA Status: Acute Current Visit: Yes - Problem List Review Problem List Initiated/Reviewed/Updated: Yes - My Orders Last 24 Hours: My Active Orders 05/13/19 08:53 Blood Culture x2 Reflex Set [OM.PC] Stat 05/13/19 09:00 Enoxaparin [Lovenox] 40 mg SUBCUT DAILY Escitalopram [Lexapro] 10 mg PO DAILY Phosphorus #1 [Neutra-Phos] 250 mg PO QID lisinopriL [Prinivil] 5 mg PO DAILY 05/13/19 09:40 CULTURE BLOOD [BC] Stat 05/13/19 09:45 CULTURE BLOOD [BC] Stat 05/13/19 11:18 Abdomen Ltd [US] Routine 05/13/19 12:00 Insulin Lispro [HumaLOG] 15 unit SUBCUT TIDMEALS Insulin Lispro [HumaLOG] See Protocol SUBCUT WITHMEALSANDBED Piperacillin/Tazobactam [Zosyn] 3.375 gm Sodium Chloride 0.9% [Normal Saline] 100 ml IV Q6HR 05/13/19 18:14 Acetaminophen/oxyCODONE [Percocet 325-5 MG] 1 tab PO Q4H PRN 05/13/19 20:00 Lidocaine 5% [Lidoderm 5%] 700 mg TOP BEDTIME 05/14/19 09:00 Remove Patch 1 ea TRDERM DAILY 05/14/19 09:22 Ibuprofen [Motrin] 600 mg PO TID PRN 05/14/19 10:00 Magnesium Sulfate/D5W [Magnesium Sulfate in D5W 100 Premix] 1 gm Premix Bag 1 bag IV ONETIME 05/14/19 11:00 Potassium Chloride [KCL 20 MEQ in Water 100 ML] 20 meq Premix Bag 1 bag IV Q2H 05/14/19 15:00 Abdomen Ltd [US] Routine 05/14/19 16:00 PHOSPHORUS [CHEM] Routine POTASSIUM,K [CHEM] Routine 05/14/19 Lunch NPO [Nothing Per Oral Diet] [DIET] 05/15/19 07:00 BASIC METABOLIC PANEL,BMP [CHEM] DAILY CBC W/O DIFF,HEMOGRAM [HEME] DAILY HEPATIC FUNCTION PANEL,HFP [CHEM] DAILY - Plan Plan:: #Acute pyelonephritis -Resolving -wbc trending down -Blood and urine cx positive for gram negative rods -Repeat Blood cx negative day 2 -Continue IV Zosyn -Pain control with Percocet and Motrin #Sepsis due to above -Resolving -Lactate now within normal limits -Continue IV Zosyn #Upper respiratory infections plus fever -Ferritin wnl, CRP elevated, low lymphocytes, D-dimer elevated -CT chest: report pending -Coronavirus COVID-19 PCR in process -Continue supportive care -Continue droplet and contact isolation #Anion Gap metabolic acidosis due to above -Resolved #Hypocalcemia -s/p Calcium gluconate x 1 -Improved #Hypomagnesemia/hypophosphatemia/Hypokalemia -Replace per protocol #Mild hyponatremia -Improved #Elevate LFTs -Improving -Continue to monitor liver enzymes closely -RUQ US pending #Type II Diabetes -Suboptimally controlled -A1c 9.7 -Continue to hold Metformin -Insulin Glargin plus Lispro -Sliding scale insulin for optimal glycemic control -Carb consistent diet -Accu-cheks -Hypoglycemic protocol #Depression -Continue home medications #Obesity -Advised on weight reduction measures #Full code
[2019-05-14] MEDS: Ibuprofen 600 MG Tab PO PRN ×2 (09:56→17:44)
[2019-05-14] MEDS: Phosphorus #1 250 MG Tab PO SCH ×4 (09:57→20:56)
[2019-05-14] MEDS: QUEtiapine 100 MG Tab PO SCH (20:56)
[2019-05-14] MEDS: Lidocaine 5% 700 MG Patch TOP SCH (20:56)
[2019-05-14] MEDS: Insulin Glarg,Human.Rec.Analog 100 Unit/ML SUBCUT SCH (20:56)
[2019-05-15] MEDS: Ibuprofen 600 MG Tab PO PRN ×3 (02:41→20:43)
[2019-05-15] MEDS: Acetaminophen/oxyCODONE 325-5 MG Tab PO PRN ×4 (03:23→20:44)
[2019-05-15] MEDS: Piperacillin/Tazobactam 3.375 GM in Sodium Chloride 0.9% 100 ML IV SCH ×4 (05:49→23:35)
[2019-05-15 07:16] LABS: ANION GAP 13.6 mEq/L (7-13); CHLORIDE,CL 102 mmol/L (98-107); SODIUM,NA 137 mmol/L (136-145)
[2019-05-15] MEDS: Lisinopril 5 MG Tab PO SCH (10:10)
[2019-05-15] MEDS: Escitalopram 10 MG Tab PO SCH (10:10)
[2019-05-15] MEDS: Phosphorus #1 250 MG Tab PO SCH ×4 (10:10→20:44)
[2019-05-15] MEDS: Gabapentin 300 MG Cap PO SCH ×3 (10:10→20:43)
[2019-05-15] MEDS: Insulin Lispro 100 Units/ML 3 ML Vial SUBCUT SCH ×7 (10:11→20:44)
[2019-05-15] MEDS: Enoxaparin 40 MG/0.4 ML Syringe SUBCUT SCH (10:11)
[2019-05-15] MEDS: REMOVE LIDOCAINE TRDERM SCH (10:13)
--- NOTE | 2019-05-15 10:37 | PCM.PN ---
- General Info Date of Service: 05/15/19 Subjective Update: Patient indicates that she is feeling better. She still has low back pain. Did have chills this morning. Had a low-grade fever temperature of 38.5. No longer has nausea or vomiting. - Review of Systems General: Reports: Fever, Fatigue Pulmonary: Reports: No Symptoms Gastrointestinal: Reports: No Symptoms Musculoskeletal: Reports: Back Pain - Patient Data Vitals - Most Recent: Last Vital Signs Temp 36.9 C 05/15/19 08:00 Pulse 98 05/15/19 08:00 Resp 20 05/15/19 08:00 BP 104/60 05/15/19 10:10 Pulse Ox 95 05/15/19 08:00 Weight - Most Recent: 74.389 kg I&O - Last 24 Hours: Intake & Output 05/14/19 05/15/19 05/15/19 22:59 06:59 14:59 Intake Total 97 Balance 97 Lab Results Last 24 Hours: Laboratory Results - last 24 hr 05/14/19 05/14/19 05/14/19 Range/Units 11:14 16:15 17:09 WBC (5.0-10.0) 10^3/uL RBC (4.2-5.4) 10^6/uL Hgb (12.0-16.0) g/dL Hct (37.0-47.0) % MCV (80-100) fL MCH (27.0-34.0) pg MCHC (33.0-35.0) g/dL Plt Count (150-450) 10^3/uL Sodium (136-145) mmol/L Potassium 3.4 L (3.5-5.1) mmol/L Chloride (98-107) mmol/L Carbon Dioxide (21-32) mmol/L Anion Gap (7-13) mEq/L BUN (7-18) mg/dL Creatinine (0.55-1.02) mg/dL Est Cr Clr Drug Dosing mL/min Estimated GFR (MDRD) Glucose (74-99) mg/dL POC Glucose 258 H 262 H (70-105) mg/dl Calcium (8.5-10.1) mg/dL Phosphorus 2.8 (2.6-4.7) mg/dL Total Bilirubin (0.2-1.0) mg/dL Direct Bilirubin (0.0-0.2) mg/dL Indirect Bilirubin AST (15-37) U/L ALT (14-59) U/L Alkaline Phosphatase (46-116) U/L Total Protein (6.4-8.2) g/dL Albumin (3.4-5.0) g/dL Globulin Albumin/Globulin Ratio 05/14/19 05/15/19 05/15/19 Range/Units 20:45 06:22 06:22 WBC 14.5 H (5.0-10.0) 10^3/uL RBC 3.41 L (4.2-5.4) 10^6/uL Hgb 9.8 L (12.0-16.0) g/dL Hct 29.9 L (37.0-47.0) % MCV 87.7 (80-100) fL MCH 28.7 (27.0-34.0) pg MCHC 32.8 L (33.0-35.0) g/dL Plt Count 241 (150-450) 10^3/uL Sodium 137 (136-145) mmol/L Potassium 3.6 (3.5-5.1) mmol/L Chloride 102 (98-107) mmol/L Carbon Dioxide 25 (21-32) mmol/L Anion Gap 13.6 H (7-13) mEq/L BUN 6 L (7-18) mg/dL Creatinine 0.60 (0.55-1.02) mg/dL Est Cr Clr Drug Dosing 118.88 mL/min Estimated GFR (MDRD) > 60 Glucose 223 H (74-99) mg/dL POC Glucose 116 H (70-105) mg/dl Calcium 7.4 L (8.5-10.1) mg/dL Phosphorus (2.6-4.7) mg/dL Total Bilirubin 0.3 (0.2-1.0) mg/dL Direct Bilirubin 0.2 (0.0-0.2) mg/dL Indirect Bilirubin 0.1 AST 26 (15-37) U/L ALT 68 H (14-59) U/L Alkaline Phosphatase 127 H (46-116) U/L Total Protein 6.1 L (6.4-8.2) g/dL Albumin 2.0 L (3.4-5.0) g/dL Globulin 4.1 Albumin/Globulin Ratio 0.49 05/15/19 Range/Units 07:44 WBC (5.0-10.0) 10^3/uL RBC (4.2-5.4) 10^6/uL Hgb (12.0-16.0) g/dL Hct (37.0-47.0) % MCV (80-100) fL MCH (27.0-34.0) pg MCHC (33.0-35.0) g/dL Plt Count (150-450) 10^3/uL Sodium (136-145) mmol/L Potassium (3.5-5.1) mmol/L Chloride (98-107) mmol/L Carbon Dioxide (21-32) mmol/L Anion Gap (7-13) mEq/L BUN (7-18) mg/dL Creatinine (0.55-1.02) mg/dL Est Cr Clr Drug Dosing mL/min Estimated GFR (MDRD) Glucose (74-99) mg/dL POC Glucose 202 H (70-105) mg/dl Calcium (8.5-10.1) mg/dL Phosphorus (2.6-4.7) mg/dL Total Bilirubin (0.2-1.0) mg/dL Direct Bilirubin (0.0-0.2) mg/dL Indirect Bilirubin AST (15-37) U/L ALT (14-59) U/L Alkaline Phosphatase (46-116) U/L Total Protein (6.4-8.2) g/dL Albumin (3.4-5.0) g/dL Globulin Albumin/Globulin Ratio Dexter Results Last 24 Hours: Microbiology 05/13/19 09:45 Aerobic Blood Culture - Preliminary Blood - Venous - Lab Draw NO GROWTH AFTER 2 DAYS Anaerobic Blood Culture - Final 05/13/19 09:40 Aerobic Blood Culture - Preliminary Blood - Venous NO GROWTH AFTER 2 DAYS Anaerobic Blood Culture - Preliminary NO GROWTH AFTER 2 DAYS 05/12/19 16:50 Aerobic Blood Culture - Final Blood - Venous Escherichia Coli Anaerobic Blood Culture - Preliminary NO GROWTH AFTER 2 DAYS 05/12/19 17:29 Aerobic Blood Culture - Preliminary Blood - Venous - Lab Draw NO GROWTH AFTER 2 DAYS Anaerobic Blood Culture - Preliminary NO GROWTH AFTER 2 DAYS 05/12/19 22:20 Coronavirus RNA (PCR) - Final Nares, Unspecified 05/12/19 16:04 Urine Culture - Final Urine, Voided Escherichia Coli Med Orders - Current: Current Medications Enoxaparin Sodium (Lovenox) 40 mg SUBCUT DAILY [facility] Last Admin: 05/15/19 10:11 Dose: 40 mg Escitalopram Oxalate (Lexapro) 10 mg PO DAILY [facility] Last Admin: 05/15/19 10:10 Dose: 10 mg Gabapentin (Neurontin) 600 mg PO TID [facility] Last Admin: 05/15/19 10:10 Dose: 600 mg Piperacillin Sod/Tazobactam (Sod 3.375 gm/ Sodium Chloride) 100 mls @ 200 mls/ hr IV Q6HR [facility] Last Admin: 05/15/19 05:49 Dose: 200 mls/hr Ibuprofen (Motrin) 600 mg PO TID PRN PRN Reason: Pain (mild 1-3)/Fever Last Admin: 05/15/19 02:41 Dose: 600 mg Insulin Glargine (Lantus) 35 unit SUBCUT BEDTIME [facility] Last Admin: 05/14/19 20:56 Dose: 35 units Insulin Human Lispro (Humalog) 15 unit SUBCUT TIDMEALS [facility] Last Admin: 05/15/19 10:11 Dose: 15 unit Insulin Human Lispro (Humalog) 0 unit SUBCUT WITHMEALSANDBED [facility]; Protocol Last Admin: 05/15/19 10:12 Dose: 6 units Lidocaine (Lidoderm 5%) 700 mg TOP BEDTIME [facility] Last Admin: 05/14/19 20:56 Dose: 700 mg Lisinopril (Prinivil) 5 mg PO DAILY [facility] Last Admin: 05/15/19 10:10 Dose: 5 mg Miscellaneous Information (Remove Patch) 1 ea TRDERM DAILY [facility] Last Admin: 05/15/19 10:13 Dose: 1 ea Ondansetron HCl (Zofran) 4 mg IVPUSH Q6H PRN PRN Reason: Nausea/Vomiting Oxycodone/Acetaminophen (Percocet 325-5 Mg) 1 tab PO Q4H PRN PRN Reason: Pain (moderate 4-6) Last Admin: 05/15/19 10:19 Dose: 1 tab Quetiapine Fumarate (Seroquel) 100 mg PO BEDTIME [facility] Last Admin: 05/14/19 20:56 Dose: 100 mg Sodium Chloride (Saline Flush) 10 ml FLUSH ASDIRECTED PRN PRN Reason: Keep Vein Open Last Admin: 03/29/20 16:48 Dose: 10 ml Sodium Phosphate (Neutra-Phos) 250 mg PO QID [facility] Last Admin: 05/15/19 10:10 Dose: 250 mg Discontinued Medications Acetaminophen (Tylenol Extra Strength) 1,000 mg PO NOW ONE Stop: 05/12/19 19:37 Last Admin: 05/12/19 19:50 Dose: 1,000 mg Acetaminophen (Tylenol) 650 mg PO Q4H PRN PRN Reason: Pain (Mild 1-3)/fever Last Admin: 05/14/19 04:41 Dose: 650 mg Sodium Chloride (Normal Saline) 1,000 mls @ 999 mls/hr IV .BOLUS ONE Stop: 05/12/19 18:26 Last Admin: 05/12/19 16:50 Dose: 999 mls/hr Sodium Chloride (Normal Saline) 1,000 mls @ 999 mls/hr IV .BOLUS ONE Stop: 05/12/19 18:36 Last Admin: 05/12/19 17:50 Dose: 999 mls/hr Piperacillin Sod/Tazobactam (Sod 3.375 gm/ Sodium Chloride) 100 mls @ 200 mls/ hr IV ONETIME ONE Stop: 05/12/19 19:09 Last Admin: 05/12/19 19:00 Dose: 200 mls/hr Sodium Chloride (Normal Saline) 1,000 mls @ 125 mls/hr IV ASDIRECTED [facility] Last Admin: 05/13/19 13:15 Dose: 125 mls/hr Piperacillin Sod/Tazobactam (Sod 3.375 gm/ Sodium Chloride) 100 mls @ 200 mls/ hr IV Q6H [facility] Last Admin: 05/13/19 06:09 Dose: 200 mls/hr Sodium Chloride (Normal Saline) 1,000 mls @ 999 mls/hr IV .BOLUS ONE Stop: 05/12/19 23:03 Last Admin: 05/12/19 23:29 Dose: 999 mls/hr Magnesium Sulfate 2 gm/ Premix 50 mls @ 25 mls/hr IV ONETIME ONE Stop: 05/13/19 00:06 Last Admin: 05/12/19 23:25 Dose: 25 mls/hr Calcium Gluconate 1 gm/ Sodium (Chloride) 60 mls @ 120 mls/hr IV ONETIME ONE Stop: 05/13/19 10:29 Last Admin: 05/13/19 11:12 Dose: 120 mls/hr Potassium Chloride 10 meq/ (Premix) 100 mls @ 100 mls/hr IV Q2H [facility] Stop: 05/14/19 11:59 Potassium Chloride 20 meq/ (Premix) 100 mls @ 50 mls/hr IV Q2H [facility] Stop: 05/14/19 10:59 Last Admin: 05/14/19 11:02 Dose: Not Given Magnesium Sulfate/Dextrose 1 (gm/ Premix) 100 mls @ 100 mls/hr IV ONETIME ONE Stop: 05/14/19 10:59 Last Admin: 05/14/19 10:08 Dose: 100 mls/hr Potassium Chloride 20 meq/ (Premix) 100 mls @ 50 mls/hr IV Q2H [facility] Stop: 05/14/19 12:59 Last Infusion: 05/14/19 11:40 Dose: 30 mls/hr Ibuprofen (Motrin) 400 mg PO Q4H ONE Stop: 05/12/19 19:38 Last Admin: 05/12/19 19:49 Dose: 400 mg Ibuprofen (Motrin) 600 mg PO TID PRN PRN Reason: Pain Last Admin: 05/13/19 07:30 Dose: 600 mg Ibuprofen (Motrin) 400 mg PO TID PRN PRN Reason: Pain (mild 1-3)/Fever Ibuprofen (Motrin) 600 mg PO TID PRN PRN Reason: Pain (mild 1-3)/Fever Insulin Glargine (Lantus) 10 unit SUBCUT BEDTIME [facility] Insulin Human Lispro (Humalog) 5 unit SUBCUT TIDMEALS [facility] Insulin Human Lispro (Humalog) 15 unit SUBCUT TID [facility] Last Admin: 05/13/19 08:26 Dose: 15 units Insulin Human Regular (Humulin R) 10 unit IV ONETIME ONE Stop: 05/12/19 17:34 Last Admin: 05/12/19 17:41 Dose: 10 units Iopamidol (Isovue-370 (76%)) 100 ml IVPUSH ONETIME ONE Stop: 05/12/19 22:01 Last Admin: 05/12/19 22:15 Dose: 100 ml Miscellaneous Information (Remove Patch) 1 ea TRDERM Q12HR [facility] Last Admin: 05/13/19 22:44 Dose: Not Given Morphine Sulfate (Morphine) 2 mg IVPUSH ONETIME ONE Stop: 05/12/19 17:17 Last Admin: 05/12/19 17:22 Dose: 2 mg Morphine Sulfate (Morphine) 2 mg IVPUSH ONETIME ONE Stop: 05/12/19 19:39 Last Admin: 05/12/19 19:50 Dose: 2 mg Oxycodone/Acetaminophen (Percocet 325-5 Mg) 1 tab PO Q6H PRN PRN Reason: Pain (moderate 4-6) - Exam General: Alert, Oriented Neck: Supple Lungs: Clear to Auscultation, Normal Respiratory Effort Cardiovascular: Regular Rate, Regular Rhythm Sepsis Event Note - Evaluation Sepsis Screening Result: Sepsis Risk - Focused Exam Vital Signs: Vital Signs Temp Pulse Resp BP BP Pulse Ox 05/15/19 10:10 104/60 05/15/19 08:00 36.9 C 98 20 104/60 95 05/15/19 04:00 36.3 C 104 H 16 107/67 99 05/14/19 23:15 36.8 C 104 H 16 113/70 100 Date Exam was Performed: 05/15/19 Time Exam was Performed: 10:34 - Problem List Review Problem List Initiated/Reviewed/Updated: Yes - Plan Plan:: #Acute pyelonephritis -Resolving -wbc trending down -Blood and urine cx positive for gram negative rods -Repeat Blood cx negative day 2 Continue intravenous Zosyn #Sepsis due to above Continue Zosyn #Upper respiratory infections plus fever -Coronavirus COVID-19 PCR ruled out -Continue supportive care #Anion Gap metabolic acidosis due to above -Resolved #Hypocalcemia -s/p Calcium gluconate x 1 -Improved #Hypomagnesemia/hypophosphatemia/Hypokalemia -Replace per protocol #Mild hyponatremia -Improved #Elevate LFTs -Improving -Continue to monitor liver enzymes closely -RUQ US pending #Type II Diabetes -Suboptimally controlled -A1c 9.7 -Continue to hold Metformin -Insulin Glargin plus Lispro -Sliding scale insulin for optimal glycemic control -Carb consistent diet Continue current management #Depression -Continue home medications #Obesity -Advised on weight reduction measures #Full code
[2019-05-15] MEDS: Sodium Chloride 0.9% 10 ML Syringe FLUSH PRN (12:38)
--- NOTE | 2019-05-15 13:00 | US ---
EXAMINATION: Abdomen Ltd SEX: Female AGE: 33 years CLINICAL HISTORY: 33-year-old female with abnormal liver function tests. Gallbladder? Interpretation: Abnormal thickened gallbladder wall suggesting chronic INFLAMMATION (3.6 mm in thickness). No pericystic fluid, mucosal wall polyp or mobile dependent intraluminal echogenic "shadowing" gallstones. Enlarged (17.4 x 11.0 x 16.3 cm) homogeneously dense liver. No discrete intrahepatic cystic or solid mass and no abnormal dilatation of intra or extrahepatic biliary ducts (common hepatic duct 4.5 mm and the common bile duct 4.2 mm diameter). Head and body of the pancreas unremarkable (tail obscured by gas). No ascites (and no dependent pleural effusion on the right). CONCLUSION: Chronic inflammation gallbladder wall. Fatty liver. No signs of cholelithiasis or intrahepatic mass.
[2019-05-15] MEDS: Lidocaine 5% 700 MG Patch TOP SCH (20:43)
[2019-05-15] MEDS: QUEtiapine 100 MG Tab PO SCH (20:44)
[2019-05-15] MEDS: Insulin Glarg,Human.Rec.Analog 100 Unit/ML SUBCUT SCH (20:47)
[2019-05-16] MEDS: Ibuprofen 600 MG Tab PO PRN (05:40)
[2019-05-16] MEDS: Acetaminophen/oxyCODONE 325-5 MG Tab PO PRN ×2 (05:41→11:26)
[2019-05-16] MEDS: Piperacillin/Tazobactam 3.375 GM in Sodium Chloride 0.9% 100 ML IV SCH ×2 (05:46→11:44)
[2019-05-16 08:15] VITALS: BP 117/77; PULSE 91
[2019-05-16] MEDS: Insulin Lispro 100 Units/ML 3 ML Vial SUBCUT SCH ×4 (08:50→12:47)
[2019-05-16] MEDS: Escitalopram 10 MG Tab PO SCH (08:51)
[2019-05-16] MEDS: Enoxaparin 40 MG/0.4 ML Syringe SUBCUT SCH (08:51)
[2019-05-16] MEDS: Phosphorus #1 250 MG Tab PO SCH (08:52)
[2019-05-16] MEDS: Lisinopril 5 MG Tab PO SCH (08:52)
[2019-05-16] MEDS: Gabapentin 300 MG Cap PO SCH (08:52)
[2019-05-16] MEDS: REMOVE LIDOCAINE TRDERM SCH (08:53)
--- NOTE | 2019-05-16 11:45 | PCM.DCSUM1 ---
Discharge Summary - Hospital Course Free Text/Narrative:: The patient presented with complaint of low back pain, fever, cough. We ruled out coronavirus. Blood cultures came back positive with Escherichia coli and she was placed on intravenous Zosyn. At discharge patient is being transitioned to levofloxacin. She will follow up with her primary care provider. #Acute pyelonephritis #Sepsis due to above #Upper respiratory infections plus fever -Coronavirus COVID-19 PCR ruled out -Continue supportive care #Anion Gap metabolic acidosis due to above -Resolved #Hypocalcemia #Hypomagnesemia/hypophosphatemia/Hypokalemia #Mild hyponatremia -Improved #Elevate LFTs #Type II Diabetes -Suboptimally controlled -A1c 9.7 #Depression - Discharge Data Discharge Date: 05/16/19 Discharge Disposition: Home, Self-Care 01 Condition: Stable - Referral to Home Health Primary Care Physician: Miri Child MD - Discharge Plan Prescriptions/Med Rec: Levofloxacin 750 mg PO DAILY #10 tablet oxyCODONE HCl/Acetaminophen [Percocet 5-325 mg Tablet] 1 each PO Q6H PRN #20 tablet PRN Reason: back pain Home Medications: Home Meds Gabapentin [Neurontin] 600 mg PO TID 06/26/16 [History] Acetaminophen [Tylenol] 650 mg PO Q6H PRN 08/05/16 [History] Escitalopram [Lexapro] 10 mg PO DAILY 03/03/18 [History] Lisinopril 5 mg PO DAILY 03/03/18 [History] Ibuprofen [Motrin] 600 mg PO TID PRN 05/02/18 [History] metFORMIN HCl [Metformin ER Gastric] 1,000 mg PO BID 07/24/18 [History] Insulin Aspart [NovoLOG] 15 units SQ TID 05/12/19 [History] Insulin Glarg,Human.Rec.Analog [Lantus] 35 units SQ BEDTIME 05/12/19 [History] QUEtiapine [SEROquel] 100 mg PO BEDTIME 05/12/19 [History] Levofloxacin 750 mg PO DAILY #10 tablet 05/16/19 [Rx] oxyCODONE HCl/Acetaminophen [Percocet 5-325 mg Tablet] 1 each PO Q6H PRN #20 tablet 05/16/19 [Rx] Oxygen Therapy Mode: Room Air Patient Handouts: Acetaminophen; Oxycodone tablets, Pyelonephritis, Adult, Easy -to-Read, Levofloxacin tablets Referrals: Miri Dockery MD [Primary Care Provider] - - Discharge Summary/Plan Comment DC Time >30 min.: No - Review of Systems General: Reports: Weakness Pulmonary: Reports: No Symptoms Cardiovascular: Reports: No Symptoms Gastrointestinal: Reports: No Symptoms Genitourinary: Reports: Flank Pain - Patient Data Vitals - Most Recent: Last Vital Signs Temp 37.3 C 05/16/19 08:14 Pulse 91 05/16/19 08:14 Resp 20 05/16/19 08:14 BP 117/77 05/16/19 08:52 Pulse Ox 98 05/16/19 08:14 Weight - Most Recent: 74.389 kg I&O - Last 24 hours: Intake & Output 05/15/19 05/16/19 05/16/19 22:59 06:59 14:59 Intake Total 300 95 440 Balance 300 95 440 Lab Results - Last 24 hrs: Laboratory Results - last 24 hr 05/15/19 05/15/19 05/16/19 Range/Units 16:38 20:43 09:31 WBC 10.1 H (5.0-10.0) 10^3/uL RBC 3.81 L (4.2-5.4) 10^6/uL Hgb 11.0 L (12.0-16.0) g/dL Hct 33.2 L (37.0-47.0) % MCV 87.1 (80-100) fL MCH 28.9 (27.0-34.0) pg MCHC 33.1 (33.0-35.0) g/dL Plt Count 333 D (150-450) 10^3/uL POC Glucose 90 85 (70-105) mg/dl [facility] Results - Last 24 hrs: Microbiology 05/13/19 09:45 Aerobic Blood Culture - Preliminary Blood - Venous - Lab Draw NO GROWTH AFTER 3 DAYS Anaerobic Blood Culture - Final 05/13/19 09:40 Aerobic Blood Culture - Preliminary Blood - Venous NO GROWTH AFTER 3 DAYS Anaerobic Blood Culture - Preliminary NO GROWTH AFTER 3 DAYS 05/12/19 17:29 Aerobic Blood Culture - Preliminary Blood - Venous - Lab Draw NO GROWTH AFTER 3 DAYS Anaerobic Blood Culture - Preliminary NO GROWTH AFTER 3 DAYS 05/12/19 16:50 Aerobic Blood Culture - Final Blood - Venous Escherichia Coli Anaerobic Blood Culture - Preliminary NO GROWTH AFTER 3 DAYS Med Orders - Current: Current Medications Enoxaparin Sodium (Lovenox) 40 mg SUBCUT DAILY [facility] Last Admin: 05/16/19 08:51 Dose: 40 mg Escitalopram Oxalate (Lexapro) 10 mg PO DAILY [facility] Last Admin: 05/16/19 08:51 Dose: 10 mg Gabapentin (Neurontin) 600 mg PO TID [facility] Last Admin: 05/16/19 08:52 Dose: 600 mg Piperacillin Sod/Tazobactam (Sod 3.375 gm/ Sodium Chloride) 100 mls @ 200 mls/ hr IV Q6HR [facility] Last Admin: 05/16/19 05:46 Dose: 200 mls/hr Ibuprofen (Motrin) 600 mg PO TID PRN PRN Reason: Pain (mild 1-3)/Fever Last Admin: 05/16/19 05:40 Dose: 600 mg Insulin Glargine (Lantus) 35 unit SUBCUT BEDTIME [facility] Last Admin: 05/15/19 20:47 Dose: 35 units Insulin Human Lispro (Humalog) 15 unit SUBCUT TIDMEALS [facility] Last Admin: 05/16/19 08:51 Dose: 15 unit Insulin Human Lispro (Humalog) 0 unit SUBCUT WITHMEALSANDBED [facility]; Protocol Last Admin: 05/16/19 08:50 Dose: 3 units Lidocaine (Lidoderm 5%) 700 mg TOP BEDTIME [facility] Last Admin: 05/15/19 20:43 Dose: 700 mg Lisinopril (Prinivil) 5 mg PO DAILY [facility] Last Admin: 05/16/19 08:52 Dose: 5 mg Miscellaneous Information (Remove Patch) 1 ea TRDERM DAILY [facility] Last Admin: 05/16/19 08:53 Dose: 1 ea Ondansetron HCl (Zofran) 4 mg IVPUSH Q6H PRN PRN Reason: Nausea/Vomiting Oxycodone/Acetaminophen (Percocet 325-5 Mg) 1 tab PO Q4H PRN PRN Reason: Pain (moderate 4-6) Last Admin: 05/16/19 11:26 Dose: 1 tab Quetiapine Fumarate (Seroquel) 100 mg PO BEDTIME [facility] Last Admin: 05/15/19 20:44 Dose: 100 mg Sodium Chloride (Saline Flush) 10 ml FLUSH ASDIRECTED PRN PRN Reason: Keep Vein Open Last Admin: 05/15/19 12:38 Dose: 10 ml Sodium Phosphate (Neutra-Phos) 250 mg PO QID [facility] Last Admin: 05/16/19 08:52 Dose: 250 mg Discontinued Medications Acetaminophen (Tylenol Extra Strength) 1,000 mg PO NOW ONE Stop: 05/12/19 19:37 Last Admin: 05/12/19 19:50 Dose: 1,000 mg Acetaminophen (Tylenol) 650 mg PO Q4H PRN PRN Reason: Pain (Mild 1-3)/fever Last Admin: 05/14/19 04:41 Dose: 650 mg Sodium Chloride (Normal Saline) 1,000 mls @ 999 mls/hr IV .BOLUS ONE Stop: 05/12/19 18:26 Last Admin: 05/12/19 16:50 Dose: 999 mls/hr Sodium Chloride (Normal Saline) 1,000 mls @ 999 mls/hr IV .BOLUS ONE Stop: 05/12/19 18:36 Last Admin: 05/12/19 17:50 Dose: 999 mls/hr Piperacillin Sod/Tazobactam (Sod 3.375 gm/ Sodium Chloride) 100 mls @ 200 mls/ hr IV ONETIME ONE Stop: 05/12/19 19:09 Last Admin: 05/12/19 19:00 Dose: 200 mls/hr Sodium Chloride (Normal Saline) 1,000 mls @ 125 mls/hr IV ASDIRECTED [facility] Last Admin: 05/13/19 13:15 Dose: 125 mls/hr Piperacillin Sod/Tazobactam (Sod 3.375 gm/ Sodium Chloride) 100 mls @ 200 mls/ hr IV Q6H [facility] Last Admin: 05/13/19 06:09 Dose: 200 mls/hr Sodium Chloride (Normal Saline) 1,000 mls @ 999 mls/hr IV .BOLUS ONE Stop: 05/12/19 23:03 Last Admin: 05/12/19 23:29 Dose: 999 mls/hr Magnesium Sulfate 2 gm/ Premix 50 mls @ 25 mls/hr IV ONETIME ONE Stop: 05/13/19 00:06 Last Admin: 05/12/19 23:25 Dose: 25 mls/hr Calcium Gluconate 1 gm/ Sodium (Chloride) 60 mls @ 120 mls/hr IV ONETIME ONE Stop: 05/13/19 10:29 Last Admin: 05/13/19 11:12 Dose: 120 mls/hr Potassium Chloride 10 meq/ (Premix) 100 mls @ 100 mls/hr IV Q2H [facility] Stop: 05/14/19 11:59 Potassium Chloride 20 meq/ (Premix) 100 mls @ 50 mls/hr IV Q2H [facility] Stop: 05/14/19 10:59 Last Admin: 05/14/19 11:02 Dose: Not Given Magnesium Sulfate/Dextrose 1 (gm/ Premix) 100 mls @ 100 mls/hr IV ONETIME ONE Stop: 05/14/19 10:59 Last Admin: 05/14/19 10:08 Dose: 100 mls/hr Potassium Chloride 20 meq/ (Premix) 100 mls @ 50 mls/hr IV Q2H [facility] Stop: 05/14/19 12:59 Last Infusion: 05/14/19 11:40 Dose: 30 mls/hr Ibuprofen (Motrin) 400 mg PO Q4H ONE Stop: 05/12/19 19:38 Last Admin: 05/12/19 19:49 Dose: 400 mg Ibuprofen (Motrin) 600 mg PO TID PRN PRN Reason: Pain Last Admin: 05/13/19 07:30 Dose: 600 mg Ibuprofen (Motrin) 400 mg PO TID PRN PRN Reason: Pain (mild 1-3)/Fever Ibuprofen (Motrin) 600 mg PO TID PRN PRN Reason: Pain (mild 1-3)/Fever Insulin Glargine (Lantus) 10 unit SUBCUT BEDTIME [facility] Insulin Human Lispro (Humalog) 5 unit SUBCUT TIDMEALS [facility] Insulin Human Lispro (Humalog) 15 unit SUBCUT TID [facility] Last Admin: 05/13/19 08:26 Dose: 15 units Insulin Human Regular (Humulin R) 10 unit IV ONETIME ONE Stop: 05/12/19 17:34 Last Admin: 05/12/19 17:41 Dose: 10 units Iopamidol (Isovue-370 (76%)) 100 ml IVPUSH ONETIME ONE Stop: 05/12/19 22:01 Last Admin: 05/12/19 22:15 Dose: 100 ml Miscellaneous Information (Remove Patch) 1 ea GIOVANNY Q12HR [facility] Last Admin: 05/13/19 22:44 Dose: Not Given Morphine Sulfate (Morphine) 2 mg IVPUSH ONETIME ONE Stop: 05/12/19 17:17 Last Admin: 05/12/19 17:22 Dose: 2 mg Morphine Sulfate (Morphine) 2 mg IVPUSH ONETIME ONE Stop: 05/12/19 19:39 Last Admin: 05/12/19 19:50 Dose: 2 mg Oxycodone/Acetaminophen (Percocet 325-5 Mg) 1 tab PO Q6H PRN PRN Reason: Pain (moderate 4-6) - Exam General: Reports: Alert, Oriented, Cooperative Neck: Reports: Supple Lungs: Reports: Clear to Auscultation, Normal Respiratory Effort Cardiovascular: Reports: Regular Rate, Regular Rhythm GI/Abdominal Exam: Normal Bowel Sounds, Soft, Non-Tender, No Organomegaly, No Distention, No Abnormal Bruit, No Mass, Pelvis Stable Back Exam: Reports: Normal Inspection, Full Range of Motion
== END 2019-05-16 10:20 | disposition home or self-care (01) | DRG 872 ==
LOC: DL.ED 15:22 → DL.MS 18:45 → DL.ED 19:09
PROVIDERS: ADMIT Student in an Organized Health Care Education/Training Program; ATTEND Hospitalist
DX: A41.51 Sepsis due to Escherichia coli [E. coli] (principal); N10 Acute pyelonephritis; Z87.440 Personal history of urinary (tract) infections; E87.2 Acidosis; E87.1 Hypo-osmolality and hyponatremia; Z86.14 Personal history of Methicillin resistant Staphylococcus aureus infection; F32.9 Major depressive disorder, single episode, unspecified; Z88.8 Allergy status to other drugs, medicaments and biological substances; E66.9 Obesity, unspecified; R74.8 Abnormal levels of other serum enzymes; J06.9 Acute upper respiratory infection, unspecified; E83.51 Hypocalcemia; E83.42 Hypomagnesemia; E11.40 Type 2 diabetes mellitus with diabetic neuropathy, unspecified; I10 Essential (primary) hypertension; E83.39 Other disorders of phosphorus metabolism; Z28.82 Immunization not carried out because of caregiver refusal; Z88.0 Allergy status to penicillin; Z88.5 Allergy status to narcotic agent; Z79.4 Long term (current) use of insulin; Z79.899 Other long term (current) drug therapy; Z68.27 Body mass index [BMI] 27.0-27.9, adult
CPT/HCPCS: 36415; 71045; 71260; 76705; 80048; 80053; 80076; 81001; 81025; 82728; 82962; 83036; 83605; 83735; 84100; 84132; 84145; 85025; 85027; 85379; 85610; 86140; 87040; 87077; 87086; 87088; 87186; 87804; 96361; 96374; 96376; 99284-25; A9270-GY; J0610; J1650; J1815; J1815-GY; J2270; J2543; J3475; J3480; J7030; J7050; Q9967; U0002

== ENCOUNTER 2019-08-16 20:48 | Emergency (ER) | payer MEDICAID, OTHER ==
[2019-08-16] MEDS ORDERED: Ciprofloxacin 500 MG Tab PO ONE (20:49)
[2019-08-16 21:36] VITALS: BP 145/95; PULSE 129
[2019-08-16] MEDS ORDERED: cefTRIAXone 1 GM, Lidocaine 1% 2.1 ML IM ONE ×2 (22:04)
[2019-08-16] MEDS ORDERED: Azithromycin 250 MG Tab PO ONE (22:04)
[2019-08-16] MEDS ORDERED: Ciprofloxacin 500 MG Tab ONE (22:09)
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
[2019-08-16] MEDS ORDERED: Phenazopyridine 95 MG Tab PO ONE (22:20)
== END 2019-08-16 22:38 | disposition home or self-care (01) ==
LOC: DL.ED 20:48
DX: N30.01 Acute cystitis with hematuria (principal); I10 Essential (primary) hypertension; E11.40 Type 2 diabetes mellitus with diabetic neuropathy, unspecified; E66.9 Obesity, unspecified; Z68.25 Body mass index [BMI] 25.0-25.9, adult; Z77.22 Contact with and (suspected) exposure to environmental tobacco smoke (acute) (chronic); Z88.0 Allergy status to penicillin; Z88.6 Allergy status to analgesic agent; Z79.899 Other long term (current) drug therapy; Z79.4 Long term (current) use of insulin
CPT/HCPCS: 80305-QW; 81001; 81025; 87086; 87088; 87186; 87210; 87491; 87591; 96372; 99283; 99284; A9270-GY; J0696; J2001

== ENCOUNTER 2019-10-14 17:57 | Emergency (ER) | payer MEDICAID ==
[2019-10-14 18:26] VITALS: BP 132/70; PULSE 109
[2019-10-14] MEDS ORDERED: Acetaminophen/HYDROcodone 325-10 MG Tab PO ONE (18:33)
[2019-10-14] MEDS ORDERED: Lidocaine 1% 30 ML SDV INJECT ONE (18:33)
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
[2019-10-14] MEDS ORDERED: Bacitracin Oint 1 GM U/D Packet TOP ONE (19:47)
[2019-10-14] MEDS ORDERED: diphenhydrAMINE 50 MG/ML SDV IVPUSH ONE (19:48)
[2019-10-14 20:37] LABS: ANION GAP 15.1 mEq/L (7-13); CHLORIDE,CL 93 mmol/L (98-107); SODIUM,NA 130 mmol/L (136-145)
[2019-10-14] MEDS ORDERED: HYDROmorphone 1 MG/ML Syringe IVPUSH ONE (20:53)
[2019-10-14] MEDS ORDERED: Insulin Regular, Human 100 Units/ML 3 ML Vial IV ONE (21:03)
== END 2019-10-14 21:25 | disposition left against medical advice (07) ==
LOC: DL.ED 17:57
DX: L02.31 Cutaneous abscess of buttock (principal); L02.415 Cutaneous abscess of right lower limb; L03.317 Cellulitis of buttock; E11.65 Type 2 diabetes mellitus with hyperglycemia; E11.40 Type 2 diabetes mellitus with diabetic neuropathy, unspecified; I10 Essential (primary) hypertension; E66.9 Obesity, unspecified; Z68.25 Body mass index [BMI] 25.0-25.9, adult; Z88.0 Allergy status to penicillin; Z88.6 Allergy status to analgesic agent; Z79.899 Other long term (current) drug therapy; Z79.4 Long term (current) use of insulin
CPT/HCPCS: 10060; 36415; 80053; 83605; 85025; 87040; 87070; 87077; 87186; 96365; 96375; 99283; A9270; J1170; J1200; J1815; J2001; J3370; J7050

== ENCOUNTER 2019-10-16 23:26 | Emergency (ER) | payer MEDICAID ==
[2019-10-16] MEDS ORDERED: Lidocaine 1% 30 ML SDV INJECT ONE (23:40)
[2019-10-17] MEDS ORDERED: Ibuprofen 600 MG Tab PO ONE (00:09)
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
[2019-10-17 01:43] VITALS: BP 144/80; PULSE 124
== END 2019-10-17 01:40 | disposition home or self-care (01) ==
LOC: DL.ED 23:26
DX: L03.317 Cellulitis of buttock (principal); L02.31 Cutaneous abscess of buttock; I10 Essential (primary) hypertension; E11.40 Type 2 diabetes mellitus with diabetic neuropathy, unspecified; E66.9 Obesity, unspecified; Z68.26 Body mass index [BMI] 26.0-26.9, adult; Z88.6 Allergy status to analgesic agent; Z88.0 Allergy status to penicillin; Z79.899 Other long term (current) drug therapy
CPT/HCPCS: 10060; 80305; 81003; 81025; 87070; 87077; 87186; 96365; 96366; 99283; A9270; J2001; J3370; J7050

== ENCOUNTER 2019-10-17 20:39 | Inpatient (IN) | payer MEDICAID ==
[2019-10-17] MEDS ORDERED: HYDROmorphone 1 MG/ML Syringe IVPUSH ONE (22:15)
[2019-10-17] MEDS ORDERED: Sodium Chloride 0.9% 1,000 ML IV ONE (22:16)
[2019-10-17 22:22] LABS: ANION GAP 18.3 mEq/L (7-13); CHLORIDE,CL 94 mmol/L (98-107); SODIUM,NA 131 mmol/L (136-145)
[2019-10-17] MEDS ORDERED: fentaNYL 100 MCG/2 ML SDV IVPUSH ONE (23:22)
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
[2019-10-17] MEDS ORDERED: 50% Dextrose in Water 50 ML Syringe IVPUSH PRN (23:26)
[2019-10-17] MEDS ORDERED: Acetaminophen 325 MG Tab PO PRN (23:36)
[2019-10-17] MEDS ORDERED: Ondansetron 4 MG Tab.DIS PO PRN (23:36)
[2019-10-17] MEDS ORDERED: Ibuprofen 400 MG Tab PO PRN (23:36)
[2019-10-17] MEDS: NS + KCl 20mEq/L 1,000 ML IV SCH (23:47)
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
[2019-10-18] MEDS: Potassium Chloride 10 MEQ Tab.ER PO SCH ×2 (01:05→05:03)
[2019-10-18] MEDS: Zolpidem 5 MG Tab PO PRN ×2 (01:07→22:08)
[2019-10-18] MEDS: Insulin Glarg,Human.Rec.Analog 100 Unit/ML SUBCUT SCH ×2 (01:07→21:09)
[2019-10-18] MEDS: fentaNYL 100 MCG/2 ML SDV IVPUSH PRN ×6 (01:52→20:51)
[2019-10-18] MEDS: Acetaminophen 325 MG Tab PO PRN ×3 (02:39→16:40)
[2019-10-18] MEDS: Heparin Sodium 5,000 Units/ML Vial SUBCUT SCH ×3 (05:03→21:10)
[2019-10-18 06:49] LABS: ANION GAP 12.4 mEq/L (7-13); CHLORIDE,CL 100 mmol/L (98-107); SODIUM,NA 132 mmol/L (136-145)
[2019-10-18] MEDS: NS + KCl 20mEq/L 1,000 ML IV SCH ×2 (08:17→16:53)
[2019-10-18] MEDS: Insulin Lispro 100 Units/ML 3 ML Vial SUBCUT SCH ×7 (08:57→21:09)
[2019-10-18] MEDS: Lisinopril 5 MG Tab PO SCH (09:00)
[2019-10-18] MEDS: Gabapentin 300 MG Cap PO SCH ×3 (09:00→20:56)
[2019-10-18] MEDS: Escitalopram 10 MG Tab PO SCH (09:00)
[2019-10-18] MEDS: Lidocaine 2% Jelly 5 ML Tube TOP SCH (09:02)
--- NOTE | 2019-10-18 12:59 | PCM.PN ---
- General Info Date of Service: 10/18/19 Admission Dx/Problem (Free Text): Admission Diagnosis/Problem Admission Diagnosis/Problem Cellulitis and abscess Subjective Update: Continue to have moderate to severe pain at the buttock area at the site of the cellulitis. Worse with touching. Somewhat better with fentanyl IV but not completely relieved. There is associated low-grade fever. No chest pain, no shortness of breath. Minimal drainage from the wound. Mostly serosanguineous - Review of Systems General: Reports: Fever Pulmonary: Denies: Shortness of Breath Cardiovascular: Denies: Chest Pain, Edema (Low-grade) Gastrointestinal: Denies: Abdominal Pain Genitourinary: Denies: Dysuria - Patient Data Vitals - Most Recent: Last Vital Signs Temp 99.6 F 10/18/19 07:57 Pulse 105 H 10/18/19 07:57 Resp 22 H 10/18/19 07:57 BP 120/68 10/18/19 09:00 Pulse Ox 98 10/18/19 07:57 Weight - Most Recent: 155 lb 8 oz I&O - Last 24 Hours: Intake & Output 10/17/19 10/18/19 10/18/19 22:59 06:59 14:59 Intake Total 1658 Balance 1658 Lab Results Last 24 Hours: Laboratory Results - last 24 hr 10/17/19 10/17/19 10/17/19 Range/Units 21:45 21:45 21:45 WBC 20.4 H (5.0-10.0) 10^3/uL RBC 4.36 (4.2-5.4) 10^6/uL Hgb 13.1 D (12.0-16.0) g/dL Hct 37.0 (37.0-47.0) % MCV 84.9 (80-100) fL MCH 30.0 (27.0-34.0) pg MCHC 35.4 H (33.0-35.0) g/dL Plt Count 468 H D (150-450) 10^3/uL Neut % (Auto) 81.7 H (42.2-75.2) % Lymph % (Auto) 11.7 L (20.5-50.1) % [place] % (Auto) 6.2 (2-8) % Eos % (Auto) 0.1 L (1.0-3.0) % Baso % (Auto) 0.3 (0.0-1.0) % Add Manual Diff Yes Neutrophils % (Manual) 68 (42-75) % Band Neutrophils % 12 % Lymphocytes % (Manual) 19 L (20-50) % Atypical Lymphs % 0 % Monocytes % (Manual) 1 L (2-8) % Platelet Estimate Increased Sodium 131 L (136-145) mmol/L Potassium 3.3 L (3.5-5.1) mmol/L Chloride 94 L (98-107) mmol/L Carbon Dioxide 22 (21-32) mmol/L Anion Gap 18.3 H (7-13) mEq/L BUN 7 (7-18) mg/dL Creatinine 0.95 (0.55-1.02) mg/dL Est Cr Clr Drug Dosing 74.38 mL/min Estimated GFR (MDRD) > 60 BUN/Creatinine Ratio 7.4 (No establ ref range) Glucose 525 H* (74-99) mg/dL POC Glucose (70-105) mg/dl Lactic Acid 2.5 H* (0.4-2.0) mmol/L Calcium 9.4 (8.5-10.1) mg/dL Total Bilirubin 0.3 (0.2-1.0) mg/dL AST 8 L (15-37) U/L ALT 23 (14-59) U/L Alkaline Phosphatase 224 H (46-116) U/L Total Protein 8.5 H (6.4-8.2) g/dL Albumin 2.9 L (3.4-5.0) g/dL Globulin 5.6 Albumin/Globulin Ratio 0.52 10/18/19 10/18/19 10/18/19 Range/Units 01:00 01:06 06:25 WBC 19.0 H (5.0-10.0) 10^3/uL RBC 3.74 L (4.2-5.4) 10^6/uL Hgb 11.0 L D (12.0-16.0) g/dL Hct 31.9 L (37.0-47.0) % MCV 85.3 (80-100) fL MCH 29.4 (27.0-34.0) pg MCHC 34.5 (33.0-35.0) g/dL Plt Count 415 (150-450) 10^3/uL Neut % (Auto) 70.0 (42.2-75.2) % Lymph % (Auto) 22.1 (20.5-50.1) % [place] % (Auto) 7.4 (2-8) % Eos % (Auto) 0.3 L (1.0-3.0) % Baso % (Auto) 0.2 (0.0-1.0) % Add Manual Diff Neutrophils % (Manual) (42-75) % Band Neutrophils % % Lymphocytes % (Manual) (20-50) % Atypical Lymphs % % Monocytes % (Manual) (2-8) % Platelet Estimate Sodium (136-145) mmol/L Potassium (3.5-5.1) mmol/L Chloride (98-107) mmol/L Carbon Dioxide (21-32) mmol/L Anion Gap (7-13) mEq/L BUN (7-18) mg/dL Creatinine (0.55-1.02) mg/dL Est Cr Clr Drug Dosing mL/min Estimated GFR (MDRD) BUN/Creatinine Ratio (No establ ref range) Glucose (74-99) mg/dL POC Glucose 322 H (70-105) mg/dl Lactic Acid 1.0 (0.4-2.0) mmol/L Calcium (8.5-10.1) mg/dL Total Bilirubin (0.2-1.0) mg/dL AST (15-37) U/L ALT (14-59) U/L Alkaline Phosphatase (46-116) U/L Total Protein (6.4-8.2) g/dL Albumin (3.4-5.0) g/dL Globulin Albumin/Globulin Ratio 10/18/19 10/18/19 10/18/19 Range/Units 06:25 08:02 12:05 WBC (5.0-10.0) 10^3/uL RBC (4.2-5.4) 10^6/uL Hgb (12.0-16.0) g/dL Hct (37.0-47.0) % MCV (80-100) fL MCH (27.0-34.0) pg MCHC (33.0-35.0) g/dL Plt Count (150-450) 10^3/uL Neut % (Auto) (42.2-75.2) % Lymph % (Auto) (20.5-50.1) % [place] % (Auto) (2-8) % Eos % (Auto) (1.0-3.0) % Baso % (Auto) (0.0-1.0) % Add Manual Diff Neutrophils % (Manual) (42-75) % Band Neutrophils % % Lymphocytes % (Manual) (20-50) % Atypical Lymphs % % Monocytes % (Manual) (2-8) % Platelet Estimate Sodium 132 L (136-145) mmol/L Potassium 4.4 (3.5-5.1) mmol/L Chloride 100 (98-107) mmol/L Carbon Dioxide 24 (21-32) mmol/L Anion Gap 12.4 (7-13) mEq/L BUN 8 (7-18) mg/dL Creatinine 0.73 (0.55-1.02) mg/dL Est Cr Clr Drug Dosing 96.79 mL/min Estimated GFR (MDRD) > 60 BUN/Creatinine Ratio (No establ ref range) Glucose 278 H (74-99) mg/dL POC Glucose 232 H 227 H (70-105) mg/dl Lactic Acid (0.4-2.0) mmol/L Calcium 7.9 L D (8.5-10.1) mg/dL Total Bilirubin (0.2-1.0) mg/dL AST (15-37) U/L ALT (14-59) U/L Alkaline Phosphatase (46-116) U/L Total Protein (6.4-8.2) g/dL Albumin (3.4-5.0) g/dL Globulin Albumin/Globulin Ratio Med Orders - Current: Current Medications Acetaminophen (Tylenol) 650 mg PO Q6H PRN PRN Reason: Pain (Mild 1-3)/fever Last Admin: 10/18/19 09:09 Dose: 650 mg Documented by: Dextrose/Water (Dextrose 50% In Water) 25 ml IVPUSH Q1H PRN PRN Reason: blood sugar <70 Escitalopram Oxalate (Lexapro) 20 mg PO DAILY [facility] Last Admin: 10/18/19 09:00 Dose: 20 mg Documented by: Fentanyl (Sublimaze) 50 mcg IVPUSH Q2H PRN PRN Reason: Pain, severe Last Admin: 10/18/19 12:52 Dose: 50 mcg Documented by: Gabapentin (Neurontin) 600 mg PO TID [facility] Last Admin: 10/18/19 09:00 Dose: 600 mg Documented by: Heparin Sodium (Porcine) (Heparin Sodium) 5,000 units SUBCUT Q8HR [facility] Last Admin: 10/18/19 05:03 Dose: 5,000 units Documented by: Potassium Chloride/Sodium Chloride (Normal Saline With 20 Meq Kcl) 1,000 mls @ 150 mls/hr IV ASDIRECTED [facility] Last Admin: 10/18/19 08:17 Dose: 150 mls/hr Documented by: Vancomycin HCl 1 gm/ Sodium (Chloride) 250 mls @ 166.667 mls/hr IV Q12H [facility] Last Admin: 10/18/19 12:30 Dose: 166.667 mls/hr Documented by: Insulin Glargine (Lantus) 35 unit SUBCUT BEDTIME [facility] Last Admin: 10/18/19 01:07 Dose: 35 units Documented by: Insulin Human Lispro (Humalog) 0 unit SUBCUT QIDACANDBED [facility]; Protocol Last Admin: 10/18/19 12:35 Dose: 2 units Documented by: Insulin Human Lispro (Humalog) 15 unit SUBCUT TIDMEALS [facility] Last Admin: 10/18/19 12:37 Dose: 15 units Documented by: Lidocaine HCl (Xylocaine 2% Jelly) 5 ml TOP DAILY [facility] Last Admin: 10/18/19 09:02 Dose: 1 applic Documented by: Lisinopril (Prinivil) 5 mg PO DAILY [facility] Last Admin: 10/18/19 09:00 Dose: 5 mg Documented by: Ondansetron HCl (Zofran Odt) 4 mg PO Q6H PRN PRN Reason: nausea, able to take PO Oxycodone HCl (Oxycodone) 5 mg PO Q4H PRN PRN Reason: moderate pain Vancomycin HCl (Pharmacy To Dose - Vancomycin) 1 dose .XX ASDIRECTED [facility] Zolpidem Tartrate (Ambien) 5 mg PO BEDTIME PRN PRN Reason: Sleep Last Admin: 10/18/19 01:07 Dose: 5 mg Documented by: Discontinued Medications Acetaminophen (Tylenol) 650 mg PO Q4H PRN PRN Reason: Pain (Mild 1-3)/fever Fentanyl (Sublimaze) 50 mcg IVPUSH ONETIME ONE Stop: 10/17/19 23:23 Last Admin: 10/17/19 23:51 Dose: 50 mcg Documented by: Hydromorphone HCl (Dilaudid) 1 mg IVPUSH ONETIME ONE Stop: 10/17/19 22:16 Last Admin: 10/17/19 22:20 Dose: 1 mg Documented by: Sodium Chloride (Normal Saline) 1,000 mls @ 1,000 mls/hr IV .BOLUS ONE Stop: 10/17/19 23:15 Last Admin: 10/17/19 22:19 Dose: 1,000 mls/hr Documented by: Vancomycin HCl 1 gm/ Dextrose/ (Water) 250 mls @ 167 mls/hr IV ONETIME ONE Stop: 10/17/19 23:54 Last Admin: 10/18/19 01:54 Dose: Not Given Documented by: Ibuprofen (Motrin) 400 mg PO Q6H PRN PRN Reason: Pain (moderate 4-6) Potassium Chloride (Klor-Con 10) 40 meq PO Q6H [facility] Stop: 10/18/19 05:31 Last Admin: 10/18/19 05:03 Dose: 40 meq Documented by: - Exam General: Alert, Oriented Neck: Supple Lungs: Clear to Auscultation, Normal Respiratory Effort Cardiovascular: Regular Rate, Regular Rhythm GI/Abdominal Exam: Normal Bowel Sounds, Soft Extremities: No Pedal Edema Skin: Warm, Other (Right buttock area with large induration, no abscess, small opening with serosanguineous drainage) Sepsis Event Note - Evaluation Sepsis Screening Result: Severe Sepsis Risk - Focused Exam Vital Signs: Vital Signs Temp Pulse Resp BP BP Pulse Ox 10/18/19 09:00 120/68 10/18/19 07:57 99.6 F 105 H 22 H 120/68 98 10/18/19 02:44 100.8 F H 117 H 17 118/65 98 - Problem List & Annotations (1) Diabetes mellitus type 2, uncontrolled SNOMED Code(s): 829113279, 006310284 Code(s): E11.65 - TYPE 2 DIABETES MELLITUS WITH HYPERGLYCEMIA Status: Acute Current Visit: Yes Qualifiers: Glycemic state: with hyperglycemia Qualified Code(s): E11.65 - Type 2 diabetes mellitus with hyperglycemia (2) Hypokalemia SNOMED Code(s): 93764522 Code(s): E87.6 - HYPOKALEMIA Status: Acute Current Visit: Yes (3) Abscess SNOMED Code(s): 553341075 Code(s): L02.91 - CUTANEOUS ABSCESS, UNSPECIFIED Status: Acute Current Visit: No - Problem List Review Problem List Initiated/Reviewed/Updated: Yes - My Orders Last 24 Hours: My Active Orders 10/17/19 23:26 Dextrose 50% in Water 25 ml IVPUSH Q1H PRN 10/17/19 23:27 Glucose [Blood Glucose Check, Bedside] [RC] QIDACANDBED 10/17/19 23:30 NS + KCl 20mEq/L [Normal Saline with 20 mEq KCl] 1,000 ml IV ASDIRECTED Pharmacy to Dose - Vancomycin 1 dose .XX ASDIRECTED 10/17/19 23:36 Oxygen Therapy [RC] PRN Up With Assistance [RC] ASDIRECTED VTE/DVT Education [RC] PER UNIT ROUTINE Vital Signs [RC] 00,04,08,12,16,20 Ondansetron [Zofran ODT] 4 mg PO Q6H PRN Zolpidem [Ambien] 5 mg PO BEDTIME PRN Resuscitation Status Routine 10/17/19 23:37 Antiembolic Devices [RC] 10,22 Antiembolic Hose [OM.PC] Per Unit Routine 10/17/19 23:38 fentaNYL [Sublimaze] 50 mcg IVPUSH Q2H PRN 10/17/19 23:40 Acetaminophen [TylenoL] 650 mg PO Q6H PRN 10/18/19 00:00 Vancomycin 1 gm Sodium Chloride 0.9% [Normal Saline] 250 ml IV Q12H 10/18/19 00:45 Insulin Glarg,Human.Rec.Analog [LantUS] 35 unit SUBCUT BEDTIME 10/18/19 06:00 Heparin Sodium 5,000 units SUBCUT Q8HR 10/18/19 07:00 Insulin Lispro [HumaLOG] See Protocol SUBCUT QIDACANDBED 10/18/19 08:00 Insulin Lispro [HumaLOG] 15 unit SUBCUT TIDMEALS 10/18/19 09:00 Escitalopram [Lexapro] 20 mg PO DAILY Gabapentin [Neurontin] 600 mg PO TID Lidocaine 2% [Xylocaine 2% Jelly] 5 ml TOP DAILY lisinopriL [Prinivil] 5 mg PO DAILY 10/18/19 12:54 oxyCODONE 5 mg PO Q4H PRN 10/19/19 05:15 BASIC METABOLIC PANEL,BMP [CHEM] AM CBC WITH AUTO DIFF [HEME] AM - Plan Plan:: Presented with right buttock area cellulitis, large indurated area, smaller abscess Right buttock cellulitis with abscess with sepsis POA Sepsis resolved with normalized lactic acid Incision and drainage was done in the ER on 10/15 There is only small opening present, no significant abscess or abscess cavity Blood culture pending Wound culture pending Well treat with vancomycin hydrate well Diabetes Uncontrolled likely due to infection hold metformin Will use Levemir and short-acting insulin Supplemental insulin and hypoglycemia treatment as needed Hypertension Treat with lisinopril, DVT prophylaxis with subcutaneous heparin
[2019-10-18] MEDS: oxyCODONE 5 MG Tab PO PRN ×3 (13:32→22:08)
[2019-10-19] MEDS: Acetaminophen 325 MG Tab PO PRN ×3 (00:23→16:30)
[2019-10-19] MEDS: fentaNYL 100 MCG/2 ML SDV IVPUSH PRN ×2 (01:43→06:02)
[2019-10-19] MEDS: NS + KCl 20mEq/L 1,000 ML IV SCH (01:45)
[2019-10-19] MEDS: oxyCODONE 5 MG Tab PO PRN ×5 (03:56→23:14)
[2019-10-19] MEDS: Heparin Sodium 5,000 Units/ML Vial SUBCUT SCH ×3 (06:03→21:09)
[2019-10-19 06:40] LABS: ANION GAP 12.2 mEq/L (7-13); CHLORIDE,CL 100 mmol/L (98-107); SODIUM,NA 132 mmol/L (136-145)
[2019-10-19] MEDS: Insulin Lispro 100 Units/ML 3 ML Vial SUBCUT SCH ×7 (08:41→21:08)
[2019-10-19] MEDS: Gabapentin 300 MG Cap PO SCH ×3 (08:42→21:00)
[2019-10-19] MEDS: Lisinopril 5 MG Tab PO SCH (08:43)
[2019-10-19] MEDS: Escitalopram 10 MG Tab PO SCH (08:43)
[2019-10-19] MEDS: Lidocaine 2% Jelly 5 ML Tube TOP SCH (08:44)
[2019-10-19] MEDS: Morphine 2 MG/ML SYRINGE IVPUSH PRN ×2 (11:29→19:41)
--- NOTE | 2019-10-19 12:33 | PCM.PN ---
- General Info Date of Service: 10/19/19 Admission Dx/Problem (Free Text): Admission Diagnosis/Problem Admission Diagnosis/Problem Cellulitis and abscess Subjective Update: Continue to have moderate to severe pain at the buttock area at the site of the cellulitis. Worse with touching. Somewhat better with fentanyl, oxycodone but not completely relieved. . No chest pain, no shortness of breath. Moderate drainage from the wound. Mostly serosanguineous. still large indurated area Functional Status: Reports: Tolerating Diet. Denies: Pain Controlled - Review of Systems Pulmonary: Denies: Shortness of Breath Cardiovascular: Denies: Chest Pain Gastrointestinal: Denies: Abdominal Pain Skin: Reports: Other (induration, redness) - Patient Data Vitals - Most Recent: Last Vital Signs Temp 96.9 F 10/19/19 08:00 Pulse 98 10/19/19 08:00 Resp 20 10/19/19 08:00 BP 123/83 10/19/19 08:43 Pulse Ox 99 10/19/19 08:00 Weight - Most Recent: 155 lb 8 oz I&O - Last 24 Hours: Intake & Output 10/18/19 10/19/19 10/19/19 22:59 06:59 14:59 Intake Total 500 1563 Balance 500 1563 Lab Results Last 24 Hours: Laboratory Results - last 24 hr 10/18/19 10/18/19 10/19/19 Range/Units 17:44 20:32 05:55 WBC 15.4 H (5.0-10.0) 10^3/uL RBC 3.62 L (4.2-5.4) 10^6/uL Hgb 10.6 L (12.0-16.0) g/dL Hct 31.7 L (37.0-47.0) % MCV 87.6 (80-100) fL MCH 29.3 (27.0-34.0) pg MCHC 33.4 (33.0-35.0) g/dL Plt Count 437 (150-450) 10^3/uL Neut % (Auto) 65.5 (42.2-75.2) % Lymph % (Auto) 26.0 (20.5-50.1) % [place] % (Auto) 7.7 (2-8) % Eos % (Auto) 0.5 L (1.0-3.0) % Baso % (Auto) 0.3 (0.0-1.0) % Sodium (136-145) mmol/L Potassium (3.5-5.1) mmol/L Chloride (98-107) mmol/L Carbon Dioxide (21-32) mmol/L Anion Gap (7-13) mEq/L BUN (7-18) mg/dL Creatinine (0.55-1.02) mg/dL Est Cr Clr Drug Dosing mL/min Estimated GFR (MDRD) Glucose (74-99) mg/dL POC Glucose 281 H 285 H (70-105) mg/dl Calcium (8.5-10.1) mg/dL Vancomycin Trough (10.0-20.0) ug/mL 10/19/19 10/19/19 10/19/19 Range/Units 05:55 08:01 11:36 WBC (5.0-10.0) 10^3/uL RBC (4.2-5.4) 10^6/uL Hgb (12.0-16.0) g/dL Hct (37.0-47.0) % MCV (80-100) fL MCH (27.0-34.0) pg MCHC (33.0-35.0) g/dL Plt Count (150-450) 10^3/uL Neut % (Auto) (42.2-75.2) % Lymph % (Auto) (20.5-50.1) % [place] % (Auto) (2-8) % Eos % (Auto) (1.0-3.0) % Baso % (Auto) (0.0-1.0) % Sodium 132 L (136-145) mmol/L Potassium 4.2 (3.5-5.1) mmol/L Chloride 100 (98-107) mmol/L Carbon Dioxide 24 (21-32) mmol/L Anion Gap 12.2 (7-13) mEq/L BUN 10 (7-18) mg/dL Creatinine 0.65 (0.55-1.02) mg/dL Est Cr Clr Drug Dosing 108.70 mL/min Estimated GFR (MDRD) > 60 Glucose 241 H (74-99) mg/dL POC Glucose 226 H (70-105) mg/dl Calcium 7.8 L (8.5-10.1) mg/dL Vancomycin Trough 3.9 L (10.0-20.0) ug/mL 10/19/19 Range/Units 12:06 WBC (5.0-10.0) 10^3/uL RBC (4.2-5.4) 10^6/uL Hgb (12.0-16.0) g/dL Hct (37.0-47.0) % MCV (80-100) fL MCH (27.0-34.0) pg MCHC (33.0-35.0) g/dL Plt Count (150-450) 10^3/uL Neut % (Auto) (42.2-75.2) % Lymph % (Auto) (20.5-50.1) % [place] % (Auto) (2-8) % Eos % (Auto) (1.0-3.0) % Baso % (Auto) (0.0-1.0) % Sodium (136-145) mmol/L Potassium (3.5-5.1) mmol/L Chloride (98-107) mmol/L Carbon Dioxide (21-32) mmol/L Anion Gap (7-13) mEq/L BUN (7-18) mg/dL Creatinine (0.55-1.02) mg/dL Est Cr Clr Drug Dosing mL/min Estimated GFR (MDRD) Glucose (74-99) mg/dL POC Glucose 222 H (70-105) mg/dl Calcium (8.5-10.1) mg/dL Vancomycin Trough (10.0-20.0) ug/mL Dexter Results Last 24 Hours: Microbiology 10/17/19 22:35 Aerobic Blood Culture - Preliminary Blood - Venous - Lab Draw NO GROWTH AFTER 1 DAY Anaerobic Blood Culture - Preliminary NO GROWTH AFTER 1 DAY 10/17/19 22:30 Aerobic Blood Culture - Preliminary Blood - Venous NO GROWTH AFTER 1 DAY Anaerobic Blood Culture - Preliminary NO GROWTH AFTER 1 DAY Med Orders - Current: Current Medications Acetaminophen (Tylenol) 650 mg PO Q6H PRN PRN Reason: Pain (Mild 1-3)/fever Last Admin: 10/19/19 06:27 Dose: 650 mg Documented by: Dextrose/Water (Dextrose 50% In Water) 25 ml IVPUSH Q1H PRN PRN Reason: blood sugar <70 Escitalopram Oxalate (Lexapro) 20 mg PO DAILY [facility] Last Admin: 10/19/19 08:43 Dose: 20 mg Documented by: Gabapentin (Neurontin) 600 mg PO TID [facility] Last Admin: 10/19/19 08:42 Dose: 600 mg Documented by: Heparin Sodium (Porcine) (Heparin Sodium) 5,000 units SUBCUT Q8HR [facility] Last Admin: 10/19/19 06:03 Dose: 5,000 units Documented by: Vancomycin HCl 1 gm/ Sodium (Chloride) 250 mls @ 166.667 mls/hr IV Q12H [facility] Stop: 10/19/19 14:00 Last Admin: 10/19/19 12:24 Dose: 166.667 mls/hr Documented by: Vancomycin HCl 1 gm/ Sodium (Chloride) 250 mls @ 166.667 mls/hr IV Q8H [facility] Insulin Glargine (Lantus) 35 unit SUBCUT BEDTIME [facility] Last Admin: 10/18/19 21:09 Dose: 35 units Documented by: Insulin Human Lispro (Humalog) 0 unit SUBCUT QIDACANDBED [facility]; Protocol Last Admin: 10/19/19 12:24 Dose: 2 units Documented by: Insulin Human Lispro (Humalog) 15 unit SUBCUT TIDMEALS [facility] Last Admin: 10/19/19 12:24 Dose: 15 units Documented by: Lidocaine HCl (Xylocaine 2% Jelly) 5 ml TOP DAILY [facility] Last Admin: 10/19/19 08:44 Dose: 1 applic Documented by: Lisinopril (Prinivil) 5 mg PO DAILY [facility] Last Admin: 10/19/19 08:43 Dose: 5 mg Documented by: Morphine Sulfate (Morphine) 1 mg IVPUSH Q4H PRN PRN Reason: severe pain Last Admin: 10/19/19 11:29 Dose: 1 mg Documented by: Ondansetron HCl (Zofran Odt) 4 mg PO Q6H PRN PRN Reason: nausea, able to take PO Oxycodone HCl (Oxycodone) 5 mg PO Q4H PRN PRN Reason: moderate pain Last Admin: 10/19/19 08:43 Dose: 5 mg Documented by: Vancomycin HCl (Pharmacy To Dose - Vancomycin) 1 dose .XX ASDIRECTED [facility] Zolpidem Tartrate (Ambien) 5 mg PO BEDTIME PRN PRN Reason: Sleep Last Admin: 10/18/19 22:08 Dose: 5 mg Documented by: Discontinued Medications Acetaminophen (Tylenol) 650 mg PO Q4H PRN PRN Reason: Pain (Mild 1-3)/fever Fentanyl (Sublimaze) 50 mcg IVPUSH ONETIME ONE Stop: 10/17/19 23:23 Last Admin: 10/17/19 23:51 Dose: 50 mcg Documented by: Fentanyl (Sublimaze) 50 mcg IVPUSH Q2H PRN PRN Reason: Pain, severe Last Admin: 10/19/19 06:02 Dose: 50 mcg Documented by: Hydromorphone HCl (Dilaudid) 1 mg IVPUSH ONETIME ONE Stop: 10/17/19 22:16 Last Admin: 10/17/19 22:20 Dose: 1 mg Documented by: Sodium Chloride (Normal Saline) 1,000 mls @ 1,000 mls/hr IV .BOLUS ONE Stop: 10/17/19 23:15 Last Admin: 10/17/19 22:19 Dose: 1,000 mls/hr Documented by: Vancomycin HCl 1 gm/ Dextrose/ (Water) 250 mls @ 167 mls/hr IV ONETIME ONE Stop: 10/17/19 23:54 Last Admin: 10/18/19 01:54 Dose: Not Given Documented by: Potassium Chloride/Sodium Chloride (Normal Saline With 20 Meq Kcl) 1,000 mls @ 150 mls/hr IV ASDIRECTED [facility] Last Infusion: 10/19/19 08:45 Dose: Infused Documented by: Ibuprofen (Motrin) 400 mg PO Q6H PRN PRN Reason: Pain (moderate 4-6) Potassium Chloride (Klor-Con 10) 40 meq PO Q6H [facility] Stop: 10/18/19 05:31 Last Admin: 10/18/19 05:03 Dose: 40 meq Documented by: - Exam General: Alert, Oriented Neck: Supple Lungs: Clear to Auscultation, Normal Respiratory Effort Cardiovascular: Regular Rate, Regular Rhythm GI/Abdominal Exam: Normal Bowel Sounds, Soft, Non-Tender Extremities: No Pedal Edema Skin: Other (r. buttock, large indurated, tender, warm, reddened area) Psy/Mental Status: Alert, Normal Affect, Normal Mood Sepsis Event Note - Evaluation Sepsis Screening Result: Sepsis Risk - Focused Exam Vital Signs: Vital Signs Temp Pulse Resp BP BP Pulse Ox 10/19/19 08:43 123/83 10/19/19 08:00 96.9 F 98 20 123/83 99 10/19/19 03:58 98.8 F 98 16 108/63 98 - Problem List & Annotations (1) Diabetes mellitus type 2, uncontrolled SNOMED Code(s): 055408690, 507139585 Code(s): E11.65 - TYPE 2 DIABETES MELLITUS WITH HYPERGLYCEMIA Status: Acute Current Visit: Yes Qualifiers: Glycemic state: with hyperglycemia Qualified Code(s): E11.65 - Type 2 diabetes mellitus with hyperglycemia (2) Hypokalemia SNOMED Code(s): 99067788 Code(s): E87.6 - HYPOKALEMIA Status: Acute Current Visit: Yes (3) Abscess SNOMED Code(s): 001335832 Code(s): L02.91 - CUTANEOUS ABSCESS, UNSPECIFIED Status: Acute Current Visit: No - Problem List Review Problem List Initiated/Reviewed/Updated: Yes - My Orders Last 24 Hours: My Active Orders 10/18/19 12:54 oxyCODONE 5 mg PO Q4H PRN 10/19/19 11:13 Morphine 1 mg IVPUSH Q4H PRN 10/19/19 12:27 Cooling Warming Measures [RC] ASDIRECTED K Pad [Heat Therapy] [OM.PC] Routine 10/19/19 20:00 Vancomycin 1 gm Sodium Chloride 0.9% [Normal Saline] 250 ml IV Q8H 10/20/19 05:15 BASIC METABOLIC PANEL,BMP [CHEM] AM CBC WITH AUTO DIFF [HEME] AM - Plan Plan:: Presented with right buttock area cellulitis, large indurated area, smaller abscess Right buttock cellulitis with abscess with sepsis POA Sepsis resolved with normalized lactic acid Incision and drainage was done in the ER on 10/15 There is a small opening present, no significant abscess or abscess cavity to pack but has moderate drainage Blood culture: pending Wound culture MRSA Well treat with vancomycin stop IVF Diabetes Uncontrolled likely due to infection hold metformin Will use Levemir and short-acting insulin increase supplemental insulin doses Supplemental insulin and hypoglycemia treatment as needed Hypertension Treat with lisinopril, DVT prophylaxis with subcutaneous heparin
[2019-10-19] MEDS: Zolpidem 5 MG Tab PO PRN (21:00)
[2019-10-19] MEDS: Insulin Glarg,Human.Rec.Analog 100 Unit/ML SUBCUT SCH (21:07)
[2019-10-20] MEDS: Morphine 2 MG/ML SYRINGE IVPUSH PRN ×3 (02:00→10:24)
[2019-10-20] MEDS: Acetaminophen 325 MG Tab PO PRN ×3 (03:17→17:04)
[2019-10-20] MEDS: oxyCODONE 5 MG Tab PO PRN ×5 (03:17→21:37)
[2019-10-20] MEDS: Heparin Sodium 5,000 Units/ML Vial SUBCUT SCH ×3 (06:16→21:37)
[2019-10-20 06:36] LABS: ANION GAP 10.8 mEq/L (7-13); CHLORIDE,CL 99 mmol/L (98-107); SODIUM,NA 133 mmol/L (136-145)
[2019-10-20] MEDS: Lidocaine 2% Jelly 5 ML Tube TOP SCH (08:31)
[2019-10-20] MEDS: Gabapentin 300 MG Cap PO SCH ×3 (08:31→20:46)
[2019-10-20] MEDS: Escitalopram 10 MG Tab PO SCH (08:32)
[2019-10-20] MEDS: Lisinopril 5 MG Tab PO SCH (08:32)
[2019-10-20] MEDS: Insulin Lispro 100 Units/ML 3 ML Vial SUBCUT SCH ×7 (08:33→21:35)
--- NOTE | 2019-10-20 12:00 | PCM.PN ---
- General Info Date of Service: 10/20/19 Admission Dx/Problem (Free Text): Admission Diagnosis/Problem Admission Diagnosis/Problem Cellulitis and abscess Subjective Update: Continue to have moderate to severe pain at the buttock area at the site of the cellulitis. Worse with touching. Somewhat better with IV Morphine, oxycodone but not completely relieved. No associated chest pain, no shortness of breath. Moderate drainage from the wound. Mostly serosanguineous. still large indurated area but size is improving Functional Status: Reports: Tolerating Diet. Denies: Pain Controlled - Review of Systems General: Denies: Fever Pulmonary: Denies: Shortness of Breath Cardiovascular: Denies: Chest Pain Musculoskeletal: Reports: Other (r. buttock area tendrness) Skin: Reports: Other (drainage from r. buttock) - Patient Data Vitals - Most Recent: Last Vital Signs Temp 97.4 F 10/20/19 08:00 Pulse 97 10/20/19 08:00 Resp 20 10/20/19 08:00 BP 107/62 10/20/19 08:32 Pulse Ox 97 10/20/19 08:00 Weight - Most Recent: 155 lb 8 oz I&O - Last 24 Hours: Intake & Output 10/19/19 10/20/19 10/20/19 22:59 06:59 14:59 Intake Total 1218 Balance 1218 Lab Results Last 24 Hours: Laboratory Results - last 24 hr 10/19/19 10/19/19 10/19/19 Range/Units 11:36 12:06 16:47 WBC (5.0-10.0) 10^3/uL RBC (4.2-5.4) 10^6/uL Hgb (12.0-16.0) g/dL Hct (37.0-47.0) % MCV (80-100) fL MCH (27.0-34.0) pg MCHC (33.0-35.0) g/dL Plt Count (150-450) 10^3/uL Neut % (Auto) (42.2-75.2) % Lymph % (Auto) (20.5-50.1) % Haskell % (Auto) (2-8) % Eos % (Auto) (1.0-3.0) % Baso % (Auto) (0.0-1.0) % Add Manual Diff Neutrophils % (Manual) (42-75) % Band Neutrophils % % Lymphocytes % (Manual) (20-50) % Monocytes % (Manual) (2-8) % Eosinophils % (Manual) (1-3) % Sodium (136-145) mmol/L Potassium (3.5-5.1) mmol/L Chloride (98-107) mmol/L Carbon Dioxide (21-32) mmol/L Anion Gap (7-13) mEq/L BUN (7-18) mg/dL Creatinine (0.55-1.02) mg/dL Est Cr Clr Drug Dosing mL/min Estimated GFR (MDRD) Glucose (74-99) mg/dL POC Glucose 222 H 272 H (70-105) mg/dl Calcium (8.5-10.1) mg/dL Vancomycin Trough 3.9 L (10.0-20.0) ug/mL 10/19/19 10/20/19 10/20/19 Range/Units 20:56 05:50 05:50 WBC 11.5 H (5.0-10.0) 10^3/uL RBC 3.80 L (4.2-5.4) 10^6/uL Hgb 11.2 L (12.0-16.0) g/dL Hct 32.9 L (37.0-47.0) % MCV 86.6 (80-100) fL MCH 29.5 (27.0-34.0) pg MCHC 34.0 (33.0-35.0) g/dL Plt Count 486 H (150-450) 10^3/uL Neut % (Auto) 62.3 (42.2-75.2) % Lymph % (Auto) 28.2 (20.5-50.1) % Haskell % (Auto) 8.5 H (2-8) % Eos % (Auto) 0.7 L (1.0-3.0) % Baso % (Auto) 0.3 (0.0-1.0) % Add Manual Diff Yes Neutrophils % (Manual) 59 (42-75) % Band Neutrophils % 2 % Lymphocytes % (Manual) 31 (20-50) % Monocytes % (Manual) 7 (2-8) % Eosinophils % (Manual) 1 (1-3) % Sodium 133 L (136-145) mmol/L Potassium 3.8 (3.5-5.1) mmol/L Chloride 99 (98-107) mmol/L Carbon Dioxide 27 (21-32) mmol/L Anion Gap 10.8 (7-13) mEq/L BUN 10 (7-18) mg/dL Creatinine 0.65 (0.55-1.02) mg/dL Est Cr Clr Drug Dosing 108.70 mL/min Estimated GFR (MDRD) > 60 Glucose 253 H (74-99) mg/dL POC Glucose 246 H (70-105) mg/dl Calcium 8.3 L (8.5-10.1) mg/dL Vancomycin Trough (10.0-20.0) ug/mL 10/20/19 Range/Units 08:01 WBC (5.0-10.0) 10^3/uL RBC (4.2-5.4) 10^6/uL Hgb (12.0-16.0) g/dL Hct (37.0-47.0) % MCV (80-100) fL MCH (27.0-34.0) pg MCHC (33.0-35.0) g/dL Plt Count (150-450) 10^3/uL Neut % (Auto) (42.2-75.2) % Lymph % (Auto) (20.5-50.1) % Haskell % (Auto) (2-8) % Eos % (Auto) (1.0-3.0) % Baso % (Auto) (0.0-1.0) % Add Manual Diff Neutrophils % (Manual) (42-75) % Band Neutrophils % % Lymphocytes % (Manual) (20-50) % Monocytes % (Manual) (2-8) % Eosinophils % (Manual) (1-3) % Sodium (136-145) mmol/L Potassium (3.5-5.1) mmol/L Chloride (98-107) mmol/L Carbon Dioxide (21-32) mmol/L Anion Gap (7-13) mEq/L BUN (7-18) mg/dL Creatinine (0.55-1.02) mg/dL Est Cr Clr Drug Dosing mL/min Estimated GFR (MDRD) Glucose (74-99) mg/dL POC Glucose 243 H (70-105) mg/dl Calcium (8.5-10.1) mg/dL Vancomycin Trough (10.0-20.0) ug/mL Dexter Results Last 24 Hours: Microbiology 10/17/19 22:35 Aerobic Blood Culture - Preliminary Blood - Venous - Lab Draw NO GROWTH AFTER 2 DAYS Anaerobic Blood Culture - Preliminary NO GROWTH AFTER 2 DAYS 10/17/19 22:30 Aerobic Blood Culture - Preliminary Blood - Venous NO GROWTH AFTER 2 DAYS Anaerobic Blood Culture - Preliminary NO GROWTH AFTER 2 DAYS Med Orders - Current: Current Medications Acetaminophen (Tylenol) 650 mg PO Q6H PRN PRN Reason: Pain (Mild 1-3)/fever Last Admin: 10/20/19 10:23 Dose: 650 mg Documented by: Dextrose/Water (Dextrose 50% In Water) 25 ml IVPUSH Q1H PRN PRN Reason: blood sugar <70 Escitalopram Oxalate (Lexapro) 20 mg PO DAILY [facility] Last Admin: 10/20/19 08:32 Dose: 20 mg Documented by: Gabapentin (Neurontin) 600 mg PO TID [facility] Last Admin: 10/20/19 08:31 Dose: 600 mg Documented by: Heparin Sodium (Porcine) (Heparin Sodium) 5,000 units SUBCUT Q8HR [facility] Last Admin: 10/20/19 06:16 Dose: 5,000 units Documented by: Vancomycin HCl 1 gm/ Sodium (Chloride) 250 mls @ 166.667 mls/hr IV Q8H [facility] Last Admin: 10/20/19 03:21 Dose: 166.667 mls/hr Documented by: Insulin Glargine (Lantus) 35 unit SUBCUT BEDTIME [facility] Last Admin: 10/19/19 21:07 Dose: 35 units Documented by: Insulin Human Lispro (Humalog) 0 unit SUBCUT QIDACANDBED [facility]; Protocol Last Admin: 10/20/19 08:33 Dose: 4 units Documented by: Insulin Human Lispro (Humalog) 15 unit SUBCUT TIDMEALS [facility] Last Admin: 10/20/19 08:33 Dose: 15 units Documented by: Lidocaine HCl (Xylocaine 2% Jelly) 5 ml TOP DAILY [facility] Last Admin: 10/20/19 08:31 Dose: 1 applic Documented by: Lisinopril (Prinivil) 5 mg PO DAILY [facility] Last Admin: 10/20/19 08:32 Dose: 5 mg Documented by: Morphine Sulfate (Morphine) 1 mg IVPUSH Q4H PRN PRN Reason: severe pain Last Admin: 10/20/19 10:24 Dose: 1 mg Documented by: Ondansetron HCl (Zofran Odt) 4 mg PO Q6H PRN PRN Reason: nausea, able to take PO Oxycodone HCl (Oxycodone) 5 mg PO Q4H PRN PRN Reason: moderate pain Last Admin: 10/20/19 08:32 Dose: 5 mg Documented by: Vancomycin HCl (Pharmacy To Dose - Vancomycin) 1 dose .XX ASDIRECTED [facility] Zolpidem Tartrate (Ambien) 5 mg PO BEDTIME PRN PRN Reason: Sleep Last Admin: 10/19/19 21:00 Dose: 5 mg Documented by: Discontinued Medications Acetaminophen (Tylenol) 650 mg PO Q4H PRN PRN Reason: Pain (Mild 1-3)/fever Fentanyl (Sublimaze) 50 mcg IVPUSH ONETIME ONE Stop: 10/17/19 23:23 Last Admin: 10/17/19 23:51 Dose: 50 mcg Documented by: Fentanyl (Sublimaze) 50 mcg IVPUSH Q2H PRN PRN Reason: Pain, severe Last Admin: 10/19/19 06:02 Dose: 50 mcg Documented by: Hydromorphone HCl (Dilaudid) 1 mg IVPUSH ONETIME ONE Stop: 10/17/19 22:16 Last Admin: 10/17/19 22:20 Dose: 1 mg Documented by: Sodium Chloride (Normal Saline) 1,000 mls @ 1,000 mls/hr IV .BOLUS ONE Stop: 10/17/19 23:15 Last Admin: 10/17/19 22:19 Dose: 1,000 mls/hr Documented by: Vancomycin HCl 1 gm/ Dextrose/ (Water) 250 mls @ 167 mls/hr IV ONETIME ONE Stop: 10/17/19 23:54 Last Admin: 10/18/19 01:54 Dose: Not Given Documented by: Potassium Chloride/Sodium Chloride (Normal Saline With 20 Meq Kcl) 1,000 mls @ 150 mls/hr IV ASDIRECTED [facility] Last Infusion: 10/19/19 08:45 Dose: Infused Documented by: Vancomycin HCl 1 gm/ Sodium (Chloride) 250 mls @ 166.667 mls/hr IV Q12H [facility] Stop: 10/19/19 14:00 Last Admin: 10/19/19 12:24 Dose: 166.667 mls/hr Documented by: Ibuprofen (Motrin) 400 mg PO Q6H PRN PRN Reason: Pain (moderate 4-6) Potassium Chloride (Klor-Con 10) 40 meq PO Q6H [facility]ONATH[facility] Stop: 10/18/19 05:31 Last Admin: 10/18/19 05:03 Dose: 40 meq Documented by: - Exam General: Alert, Oriented Lungs: Clear to Auscultation Cardiovascular: Regular Rate GI/Abdominal Exam: Normal Bowel Sounds, Soft, Non-Tender Extremities: No Pedal Edema Skin: Warm, Other (r. buttock area induration, serosanguinous drainage, no palpable abscess) Sepsis Event Note - Evaluation Sepsis Screening Result: Sepsis Risk - Focused Exam Vital Signs: Vital Signs Temp Pulse Resp BP BP Pulse Ox 10/20/19 08:32 107/62 10/20/19 08:00 97.4 F 97 20 107/62 97 10/20/19 07:00 97 10/20/19 03:19 98.8 F 95 18 114/68 97 - Problem List & Annotations (1) Diabetes mellitus type 2, uncontrolled SNOMED Code(s): 090828359, 530885778 Code(s): E11.65 - TYPE 2 DIABETES MELLITUS WITH HYPERGLYCEMIA Status: Acute Current Visit: Yes Qualifiers: Glycemic state: with hyperglycemia Qualified Code(s): E11.65 - Type 2 diabetes mellitus with hyperglycemia (2) Hypokalemia SNOMED Code(s): 30861815 Code(s): E87.6 - HYPOKALEMIA Status: Acute Current Visit: Yes (3) Abscess SNOMED Code(s): 373139356 Code(s): L02.91 - CUTANEOUS ABSCESS, UNSPECIFIED Status: Acute Current Visit: No - Problem List Review Problem List Initiated/Reviewed/Updated: Yes - My Orders Last 24 Hours: My Active Orders 10/19/19 11:13 Morphine 1 mg IVPUSH Q4H PRN 10/19/19 12:27 Cooling Warming Measures [RC] ASDIRECTED K Pad [Heat Therapy] [OM.PC] Routine 10/19/19 20:00 Vancomycin 1 gm Sodium Chloride 0.9% [Normal Saline] 250 ml IV Q8H - Plan Plan:: Presented with right buttock area cellulitis, large indurated area, smaller abscess Right buttock cellulitis with abscess with sepsis POA Sepsis resolved with normalized lactic acid leukocytosis is improving Incision and drainage was done in the ER on 10/15 There are 2 small openings present, no significant abscess or abscess cavity to pack but has moderate drainage Blood culture: negative Wound culture MRSA Well continue to treat with vancomycin Will require prolonged IV antibiotics Consider PICC line when available Home with antibiotic or swing bed Diabetes Uncontrolled likely due to infection hold metformin Will use Levemir and short-acting insulin increased supplemental insulin doses Supplemental insulin and hypoglycemia treatment as needed Hypertension Treat with lisinopril, DVT prophylaxis with subcutaneous heparin
[2019-10-20] MEDS: Insulin Glarg,Human.Rec.Analog 100 Unit/ML SUBCUT SCH (21:36)
[2019-10-20] MEDS: Zolpidem 5 MG Tab PO PRN (21:37)
[2019-10-21] MEDS: Acetaminophen 325 MG Tab PO PRN ×3 (03:12→20:51)
[2019-10-21] MEDS: oxyCODONE 5 MG Tab PO PRN ×4 (03:13→20:52)
[2019-10-21] MEDS: Heparin Sodium 5,000 Units/ML Vial SUBCUT SCH ×3 (06:06→21:11)
[2019-10-21] MEDS: Insulin Lispro 100 Units/ML 3 ML Vial SUBCUT SCH ×7 (08:29→20:49)
[2019-10-21] MEDS: Gabapentin 300 MG Cap PO SCH ×3 (08:30→20:51)
[2019-10-21] MEDS: Lisinopril 5 MG Tab PO SCH (08:30)
[2019-10-21] MEDS: Escitalopram 10 MG Tab PO SCH (08:30)
[2019-10-21] MEDS: Lidocaine 2% Jelly 5 ML Tube TOP SCH (08:31)
--- NOTE | 2019-10-21 12:50 | PCM.PN ---
- General Info Date of Service: 10/21/19 Subjective Update: Continue to have moderate to severe pain at the buttock area at the site of the cellulitis. Worse with touching. Somewhat better with IV Morphine, oxycodone but not completely relieved. today is the first day when she feels the pain is improved No associated chest pain, no shortness of breath. Moderate drainage from the wound. Mostly sanguineous, some clots still large indurated area but size is improving - Review of Systems General: Denies: Fever Pulmonary: Denies: Shortness of Breath Cardiovascular: Denies: Chest Pain Gastrointestinal: Denies: Abdominal Pain Psychiatric: Denies: Confusion - Patient Data Vitals - Most Recent: Last Vital Signs Temp 97.5 F 10/21/19 08:12 Pulse 87 10/21/19 08:12 Resp 20 10/21/19 08:12 BP 97/57 L 10/21/19 08:30 Pulse Ox 100 10/21/19 08:12 Weight - Most Recent: 155 lb 8 oz I&O - Last 24 Hours: Intake & Output 10/20/19 10/21/19 10/21/19 22:59 06:59 14:59 Intake Total 254 500 Balance 254 500 Lab Results Last 24 Hours: Laboratory Results - last 24 hr 10/20/19 10/20/19 10/20/19 Range/Units 16:52 19:25 21:10 POC Glucose 271 H 162 H (70-105) mg/dl Vancomycin Trough 10.5 (10.0-20.0) ug/mL 10/21/19 10/21/19 Range/Units 08:08 11:34 POC Glucose 203 H 314 H (70-105) mg/dl Vancomycin Trough (10.0-20.0) ug/mL Dexter Results Last 24 Hours: Microbiology 10/17/19 22:35 Aerobic Blood Culture - Preliminary Blood - Venous - Lab Draw NO GROWTH AFTER 3 DAYS Anaerobic Blood Culture - Preliminary NO GROWTH AFTER 3 DAYS 10/17/19 22:30 Aerobic Blood Culture - Preliminary Blood - Venous NO GROWTH AFTER 3 DAYS Anaerobic Blood Culture - Preliminary NO GROWTH AFTER 3 DAYS Med Orders - Current: Current Medications Acetaminophen (Tylenol) 650 mg PO Q6H PRN PRN Reason: Pain (Mild 1-3)/fever Last Admin: 10/21/19 03:12 Dose: 650 mg Documented by: Dextrose/Water (Dextrose 50% In Water) 25 ml IVPUSH Q1H PRN PRN Reason: blood sugar <70 Escitalopram Oxalate (Lexapro) 20 mg PO DAILY [facility] Last Admin: 10/21/19 08:30 Dose: 20 mg Documented by: Gabapentin (Neurontin) 600 mg PO TID [facility] Last Admin: 10/21/19 08:30 Dose: 600 mg Documented by: Heparin Sodium (Porcine) (Heparin Sodium) 5,000 units SUBCUT Q8HR [facility] Last Admin: 10/21/19 06:06 Dose: 5,000 units Documented by: Vancomycin HCl 1 gm/ Sodium (Chloride) 250 mls @ 166.667 mls/hr IV Q8H [facility] Last Admin: 10/21/19 12:00 Dose: 166.667 mls/hr Documented by: Insulin Glargine (Lantus) 35 unit SUBCUT BEDTIME [facility] Last Admin: 10/20/19 21:36 Dose: 35 units Documented by: Insulin Human Lispro (Humalog) 0 unit SUBCUT QIDACANDBED [facility]; Protocol Last Admin: 10/21/19 12:01 Dose: 8 units Documented by: Insulin Human Lispro (Humalog) 15 unit SUBCUT TIDMEALS [facility] Last Admin: 10/21/19 12:02 Dose: 15 units Documented by: Lidocaine HCl (Xylocaine 2% Jelly) 5 ml TOP DAILY [facility] Last Admin: 10/21/19 08:31 Dose: 1 applic Documented by: Lisinopril (Prinivil) 5 mg PO DAILY [facility] Last Admin: 10/21/19 08:30 Dose: 5 mg Documented by: Morphine Sulfate (Morphine) 1 mg IVPUSH Q4H PRN PRN Reason: severe pain Last Admin: 10/20/19 10:24 Dose: 1 mg Documented by: Ondansetron HCl (Zofran Odt) 4 mg PO Q6H PRN PRN Reason: nausea, able to take PO Oxycodone HCl (Oxycodone) 5 mg PO Q4H PRN PRN Reason: moderate pain Last Admin: 10/21/19 08:31 Dose: 5 mg Documented by: Vancomycin HCl (Pharmacy To Dose - Vancomycin) 1 dose .XX ASDIRECTED [facility] Zolpidem Tartrate (Ambien) 5 mg PO BEDTIME PRN PRN Reason: Sleep Last Admin: 10/20/19 21:37 Dose: 5 mg Documented by: Discontinued Medications Acetaminophen (Tylenol) 650 mg PO Q4H PRN PRN Reason: Pain (Mild 1-3)/fever Fentanyl (Sublimaze) 50 mcg IVPUSH ONETIME ONE Stop: 10/17/19 23:23 Last Admin: 10/17/19 23:51 Dose: 50 mcg Documented by: Fentanyl (Sublimaze) 50 mcg IVPUSH Q2H PRN PRN Reason: Pain, severe Last Admin: 10/19/19 06:02 Dose: 50 mcg Documented by: Hydromorphone HCl (Dilaudid) 1 mg IVPUSH ONETIME ONE Stop: 10/17/19 22:16 Last Admin: 10/17/19 22:20 Dose: 1 mg Documented by: Sodium Chloride (Normal Saline) 1,000 mls @ 1,000 mls/hr IV .BOLUS ONE Stop: 10/17/19 23:15 Last Admin: 10/17/19 22:19 Dose: 1,000 mls/hr Documented by: Vancomycin HCl 1 gm/ Dextrose/ (Water) 250 mls @ 167 mls/hr IV ONETIME ONE Stop: 10/17/19 23:54 Last Admin: 10/18/19 01:54 Dose: Not Given Documented by: Potassium Chloride/Sodium Chloride (Normal Saline With 20 Meq Kcl) 1,000 mls @ 150 mls/hr IV ASDIRECTED [facility] Last Infusion: 10/19/19 08:45 Dose: Infused Documented by: Vancomycin HCl 1 gm/ Sodium (Chloride) 250 mls @ 166.667 mls/hr IV Q12H [facility] Stop: 10/19/19 14:00 Last Admin: 10/19/19 12:24 Dose: 166.667 mls/hr Documented by: Ibuprofen (Motrin) 400 mg PO Q6H PRN PRN Reason: Pain (moderate 4-6) Potassium Chloride (Klor-Con 10) 40 meq PO Q6H [facility] Stop: 10/18/19 05:31 Last Admin: 10/18/19 05:03 Dose: 40 meq Documented by: - Exam General: Alert Neck: Supple Lungs: Clear to Auscultation, Normal Respiratory Effort Cardiovascular: Regular Rate, Regular Rhythm GI/Abdominal Exam: Normal Bowel Sounds, Soft, Non-Tender Extremities: No Pedal Edema Skin: Warm, Other (r. buttock with induration, 2 opening with blood/clots draining on pressure) Neurological: No New Focal Deficit Sepsis Event Note - Evaluation Sepsis Screening Result: No Definite Risk - Focused Exam Vital Signs: Vital Signs Temp Pulse Resp BP BP Pulse Ox 10/21/19 08:30 97/57 L 10/21/19 08:12 97.5 F 87 20 97/57 L 100 10/21/19 03:37 97.2 F 94 18 113/72 99 - Problem List & Annotations (1) Diabetes mellitus type 2, uncontrolled SNOMED Code(s): 972436313, 513760913 Code(s): E11.65 - TYPE 2 DIABETES MELLITUS WITH HYPERGLYCEMIA Status: Acute Current Visit: Yes Qualifiers: Glycemic state: with hyperglycemia Qualified Code(s): E11.65 - Type 2 diabetes mellitus with hyperglycemia (2) Hypokalemia SNOMED Code(s): 42030101 Code(s): E87.6 - HYPOKALEMIA Status: Acute Current Visit: Yes (3) Abscess SNOMED Code(s): 316671494 Code(s): L02.91 - CUTANEOUS ABSCESS, UNSPECIFIED Status: Acute Current Visit: No - Problem List Review Problem List Initiated/Reviewed/Updated: Yes - My Orders Last 24 Hours: My Active Orders 10/21/19 12:46 Pelvis w Cont [CT] Routine 10/22/19 05:15 BASIC METABOLIC PANEL,BMP [CHEM] AM - Plan Plan:: Presented with right buttock area cellulitis, large indurated area, smaller abscess Right buttock cellulitis with abscess with sepsis POA Sepsis resolved with normalized lactic acid leukocytosis is improving Incision and drainage was done in the ER on 10/15 There are 2 small openings present, moderate drainage of blood, blood clots Blood culture: negative Wound culture MRSA Well continue to treat with vancomycin Will require prolonged IV antibiotics Consider PICC line when available Home with antibiotic or swing bed will obtain CT pelvis to eval for extent, possible deep abscess Diabetes Uncontrolled likely due to infection hold metformin Will use Levemir and short-acting insulin increase levemir increased supplemental insulin doses Supplemental insulin and hypoglycemia treatment as needed Hypertension Treat with lisinopril, DVT prophylaxis with subcutaneous heparin
[2019-10-21] MEDS: Insulin Glarg,Human.Rec.Analog 100 Unit/ML SUBCUT SCH (20:49)
[2019-10-21] MEDS: Zolpidem 5 MG Tab PO PRN (20:52)
[2019-10-22] MEDS: oxyCODONE 5 MG Tab PO PRN ×4 (04:08→21:31)
[2019-10-22] MEDS: Acetaminophen 325 MG Tab PO PRN ×3 (04:09→17:09)
[2019-10-22] MEDS: Heparin Sodium 5,000 Units/ML Vial SUBCUT SCH ×3 (05:44→21:37)
[2019-10-22 06:45] LABS: ANION GAP 10.8 mEq/L (7-13); CHLORIDE,CL 104 mmol/L (98-107); SODIUM,NA 138 mmol/L (136-145)
[2019-10-22] MEDS: Gabapentin 300 MG Cap PO SCH ×3 (08:30→21:31)
[2019-10-22] MEDS: Lisinopril 5 MG Tab PO SCH (08:30)
[2019-10-22] MEDS: Escitalopram 10 MG Tab PO SCH (08:31)
[2019-10-22] MEDS: Insulin Lispro 100 Units/ML 3 ML Vial SUBCUT SCH ×7 (08:31→21:35)
[2019-10-22] MEDS: Lidocaine 2% Jelly 5 ML Tube TOP SCH (08:37)
--- NOTE | 2019-10-22 10:17 | CT ---
PROCEDURE INFORMATION: Exam: CT Pelvis With Contrast Exam date and time: 10/22/2019 9:31 AM Age: 34 years old Clinical indication: Cellulitis; Buttock; Additional info: R. Buttock cellulitis, eval for abscess TECHNIQUE: Imaging protocol: Computed tomography images of the pelvis with intravenous contrast. Radiation optimization: All CT scans at this facility use at least one of these dose optimization techniques: automated exposure control; mA and/or kV adjustment per patient size (includes targeted exams where dose is matched to clinical indication); or iterative reconstruction. Contrast material: ISOVUE 300; Contrast volume: 100 ml; Contrast route: INTRAVENOUS (IV); COMPARISON: CT Abdomen Pelvis w Cont 05/23/2015 6:32 PM FINDINGS: Bowel: Visualized small bowel and colon are unremarkable. Appendix: No evidence of appendicitis. Intraperitoneal space: Unremarkable. No free air. No significant fluid collection. Lymph nodes: Unremarkable. No enlarged lymph nodes. Bladder: Normal. No mass. Reproductive: Normal ovaries. Round nonenhancing hypodense intramural uterine mass 1.6 cm, probably uterine fibroid. Bones/joints: Bilateral L5 pars interarticularis defects. No spondylolisthesis. Soft tissues: Asymmetric infiltration/opacification of the right buttock subcutaneous fat extending into upper posterior right thigh. Diffuse skin thickening in the same region. No mass, gas collection or skin defect. The fat of the perineum is not involved. Normal appearance of the underlying musculature. IMPRESSION: Right buttock cellulitis without abscess or involvement of the perineum.
--- NOTE | 2019-10-22 11:12 | PCM.PN ---
- General Info Date of Service: 10/22/19 Admission Dx/Problem (Free Text): Admission Diagnosis/Problem Admission Diagnosis/Problem Cellulitis and abscess Subjective Update: Continue to have pain at the buttock area at the site of the cellulitis. The pain has much improved, [id number]. Worse with touching. Better with IV Morphine, oxycodone. No associated chest pain, no shortness of breath. Continues to have mild to Moderate drainage from the wound. Mostly sanguineous, some clots some pus Able to ambulate better with less pain. Functional Status: Reports: Pain Controlled, Tolerating Diet, Ambulating - Review of Systems General: Denies: Fever, Weakness Pulmonary: Denies: Shortness of Breath Cardiovascular: Denies: Chest Pain Gastrointestinal: Denies: Abdominal Pain Neurological: Denies: Confusion - Patient Data Vitals - Most Recent: Last Vital Signs Temp 97.6 F 10/22/19 08:10 Pulse 62 10/22/19 08:10 Resp 20 10/22/19 08:10 BP 92/60 10/22/19 08:30 Pulse Ox 98 10/22/19 08:10 Weight - Most Recent: 155 lb 8 oz I&O - Last 24 Hours: Intake & Output 10/21/19 10/22/19 10/22/19 22:59 06:59 14:59 Intake Total 811 598 320 Balance 811 598 320 Lab Results Last 24 Hours: Laboratory Results - last 24 hr 10/21/19 10/21/19 10/21/19 Range/Units 11:34 17:05 20:27 Sodium (136-145) mmol/L Potassium (3.5-5.1) mmol/L Chloride (98-107) mmol/L Carbon Dioxide (21-32) mmol/L Anion Gap (7-13) mEq/L BUN (7-18) mg/dL Creatinine (0.55-1.02) mg/dL Est Cr Clr Drug Dosing mL/min Estimated GFR (MDRD) Glucose (74-99) mg/dL POC Glucose 314 H 287 H 273 H (70-105) mg/dl Calcium (8.5-10.1) mg/dL 10/22/19 10/22/19 Range/Units 06:22 07:59 Sodium 138 (136-145) mmol/L Potassium 3.8 (3.5-5.1) mmol/L Chloride 104 (98-107) mmol/L Carbon Dioxide 27 (21-32) mmol/L Anion Gap 10.8 (7-13) mEq/L BUN 14 (7-18) mg/dL Creatinine 0.61 (0.55-1.02) mg/dL Est Cr Clr Drug Dosing 115.83 mL/min Estimated GFR (MDRD) > 60 Glucose 190 H (74-99) mg/dL POC Glucose 181 H (70-105) mg/dl Calcium 8.2 L (8.5-10.1) mg/dL Dexter Results Last 24 Hours: Microbiology 10/17/19 22:35 Aerobic Blood Culture - Preliminary Blood - Venous - Lab Draw NO GROWTH AFTER 4 DAYS Anaerobic Blood Culture - Preliminary NO GROWTH AFTER 4 DAYS 10/17/19 22:30 Aerobic Blood Culture - Preliminary Blood - Venous NO GROWTH AFTER 4 DAYS Anaerobic Blood Culture - Preliminary NO GROWTH AFTER 4 DAYS Med Orders - Current: Current Medications Acetaminophen (Tylenol) 650 mg PO Q6H PRN PRN Reason: Pain (Mild 1-3)/fever Last Admin: 10/22/19 10:05 Dose: 650 mg Documented by: Dextrose/Water (Dextrose 50% In Water) 25 ml IVPUSH Q1H PRN PRN Reason: blood sugar <70 Escitalopram Oxalate (Lexapro) 20 mg PO DAILY [facility] Last Admin: 10/22/19 08:31 Dose: 20 mg Documented by: Gabapentin (Neurontin) 600 mg PO TID [facility] Last Admin: 10/22/19 08:30 Dose: 600 mg Documented by: Heparin Sodium (Porcine) (Heparin Sodium) 5,000 units SUBCUT Q8HR [facility] Last Admin: 10/22/19 05:44 Dose: 5,000 units Documented by: Vancomycin HCl 1 gm/ Sodium (Chloride) 250 mls @ 166.667 mls/hr IV Q8H [facility] Last Admin: 10/22/19 04:04 Dose: 166.667 mls/hr Documented by: Insulin Glargine (Lantus) 45 unit SUBCUT BEDTIME [facility] Last Admin: 10/21/19 20:49 Dose: 45 units Documented by: Insulin Human Lispro (Humalog) 0 unit SUBCUT QIDACANDBED [facility]; Protocol Last Admin: 10/22/19 08:31 Dose: 2 units Documented by: Insulin Human Lispro (Humalog) 15 unit SUBCUT TIDMEALS [facility] Last Admin: 10/22/19 08:32 Dose: 15 units Documented by: Iopamidol (Isovue-300 (61%)) 100 ml IVPUSH ONETIME ONE Stop: 10/22/19 13:03 Lidocaine HCl (Xylocaine 2% Jelly) 5 ml TOP DAILY [facility] Last Admin: 10/22/19 08:37 Dose: 1 applic Documented by: Lisinopril (Prinivil) 5 mg PO DAILY [facility] Last Admin: 10/22/19 08:30 Dose: 5 mg Documented by: Morphine Sulfate (Morphine) 1 mg IVPUSH Q4H PRN PRN Reason: severe pain Last Admin: 10/20/19 10:24 Dose: 1 mg Documented by: Ondansetron HCl (Zofran Odt) 4 mg PO Q6H PRN PRN Reason: nausea, able to take PO Oxycodone HCl (Oxycodone) 5 mg PO Q4H PRN PRN Reason: moderate pain Last Admin: 10/22/19 08:35 Dose: 5 mg Documented by: Vancomycin HCl (Pharmacy To Dose - Vancomycin) 1 dose .XX ASDIRECTED [facility] Zolpidem Tartrate (Ambien) 5 mg PO BEDTIME PRN PRN Reason: Sleep Last Admin: 10/21/19 20:52 Dose: 5 mg Documented by: Discontinued Medications Acetaminophen (Tylenol) 650 mg PO Q4H PRN PRN Reason: Pain (Mild 1-3)/fever Fentanyl (Sublimaze) 50 mcg IVPUSH ONETIME ONE Stop: 10/17/19 23:23 Last Admin: 10/17/19 23:51 Dose: 50 mcg Documented by: Fentanyl (Sublimaze) 50 mcg IVPUSH Q2H PRN PRN Reason: Pain, severe Last Admin: 10/19/19 06:02 Dose: 50 mcg Documented by: Hydromorphone HCl (Dilaudid) 1 mg IVPUSH ONETIME ONE Stop: 10/17/19 22:16 Last Admin: 10/17/19 22:20 Dose: 1 mg Documented by: Sodium Chloride (Normal Saline) 1,000 mls @ 1,000 mls/hr IV .BOLUS ONE Stop: 10/17/19 23:15 Last Admin: 10/17/19 22:19 Dose: 1,000 mls/hr Documented by: Vancomycin HCl 1 gm/ Dextrose/ (Water) 250 mls @ 167 mls/hr IV ONETIME ONE Stop: 10/17/19 23:54 Last Admin: 10/18/19 01:54 Dose: Not Given Documented by: Potassium Chloride/Sodium Chloride (Normal Saline With 20 Meq Kcl) 1,000 mls @ 150 mls/hr IV ASDIRECTED [facility] Last Infusion: 10/19/19 08:45 Dose: Infused Documented by: Vancomycin HCl 1 gm/ Sodium (Chloride) 250 mls @ 166.667 mls/hr IV Q12H [facility] Stop: 10/19/19 14:00 Last Admin: 10/19/19 12:24 Dose: 166.667 mls/hr Documented by: Ibuprofen (Motrin) 400 mg PO Q6H PRN PRN Reason: Pain (moderate 4-6) Insulin Glargine (Lantus) 35 unit SUBCUT BEDTIME [facility] Last Admin: 10/20/19 21:36 Dose: 35 units Documented by: Potassium Chloride (Klor-Con 10) 40 meq PO Q6H [facility] Stop: 10/18/19 05:31 Last Admin: 10/18/19 05:03 Dose: 40 meq Documented by: - Exam General: Alert, Oriented Neck: Supple Lungs: Clear to Auscultation, Normal Respiratory Effort Cardiovascular: Regular Rate, Regular Rhythm GI/Abdominal Exam: Normal Bowel Sounds, Soft, Non-Tender Extremities: No Pedal Edema Skin: Warm, Other (Right buttock wound with mild drainage, no abscess palpable, large area of induration, less redness) Psy/Mental Status: Alert, Normal Affect, Normal Mood Sepsis Event Note - Evaluation Sepsis Screening Result: No Definite Risk - Focused Exam Vital Signs: Vital Signs Temp Pulse Resp BP BP Pulse Ox 10/22/19 08:30 92/60 10/22/19 08:10 97.6 F 62 20 92/52 L 98 10/22/19 04:00 97.6 F 85 16 101/49 L 100 - Problem List & Annotations (1) Diabetes mellitus type 2, uncontrolled SNOMED Code(s): 224146720, 272642438 Code(s): E11.65 - TYPE 2 DIABETES MELLITUS WITH HYPERGLYCEMIA Status: Acute Current Visit: Yes Qualifiers: Glycemic state: with hyperglycemia Qualified Code(s): E11.65 - Type 2 diabetes mellitus with hyperglycemia (2) Hypokalemia SNOMED Code(s): 64369072 Code(s): E87.6 - HYPOKALEMIA Status: Acute Current Visit: Yes (3) Abscess SNOMED Code(s): 001578955 Code(s): L02.91 - CUTANEOUS ABSCESS, UNSPECIFIED Status: Acute Current Visit: No - Problem List Review Problem List Initiated/Reviewed/Updated: Yes - My Orders Last 24 Hours: My Active Orders 10/21/19 21:00 Insulin Glarg,Human.Rec.Analog [LantUS] 45 unit SUBCUT BEDTIME 10/22/19 13:02 Iopamidol [Isovue-300 (61%)] 100 ml IVPUSH ONETIME ONE - Plan Plan:: Presented with right buttock area cellulitis, large indurated area, smaller abscess Right buttock cellulitis with abscess with sepsis POA CT obtained on 21 October shows no abscess cavity Sepsis resolved with normalized lactic acid leukocytosis is improved Pain is much improved Improved on physical examination. Incision and drainage was done in the ER on 10/15 There are 2 small openings present, moderate drainage of blood, blood clots Blood culture: negative Wound culture MRSA Well continue to treat with vancomycin Will require prolonged IV antibiotics We'll place PICC line if the patient is approved for swing bed Home with antibiotic or swing bed Diabetes Uncontrolled likely due to infection hold metformin Continue with increased Levemir and short-acting insulin increased supplemental insulin doses Supplemental insulin and hypoglycemia treatment as needed Hypertension Treat with lisinopril, DVT prophylaxis with subcutaneous heparin
[2019-10-22] MEDS ORDERED: Iopamidol 612 MG/ML 100 ML Bottle IVPUSH ONE (13:02)
[2019-10-22] MEDS: Insulin Glarg,Human.Rec.Analog 100 Unit/ML SUBCUT SCH (21:34)
[2019-10-22] MEDS: Zolpidem 5 MG Tab PO PRN (23:32)
[2019-10-23] MEDS: oxyCODONE 5 MG Tab PO PRN ×5 (04:12→22:07)
[2019-10-23] MEDS: Acetaminophen 325 MG Tab PO PRN ×4 (04:12→23:19)
[2019-10-23] MEDS: Heparin Sodium 5,000 Units/ML Vial SUBCUT SCH ×3 (05:33→22:09)
[2019-10-23] MEDS: Sodium Chloride 0.9% 10 ML Syringe FLUSH PRN (05:35)
[2019-10-23] MEDS ORDERED: Insulin Lispro 100 Units/ML 3 ML Vial SUBCUT ONE (08:30)
[2019-10-23] MEDS: Escitalopram 10 MG Tab PO SCH (08:40)
[2019-10-23] MEDS: Gabapentin 300 MG Cap PO SCH ×3 (08:40→22:09)
[2019-10-23] MEDS: Insulin Lispro 100 Units/ML 3 ML Vial SUBCUT SCH ×7 (08:44→23:14)
[2019-10-23] MEDS: Lisinopril 5 MG Tab PO SCH (08:44)
[2019-10-23] MEDS: Lidocaine 2% Jelly 5 ML Tube TOP SCH (08:45)
--- NOTE | 2019-10-23 11:05 | PCM.PN ---
- General Info Date of Service: 10/23/19 Subjective Update: No new complaint today Still has pain of the right gluteal area Significant induration No fever and no chills. - Review of Systems General: Reports: No Symptoms Pulmonary: Reports: No Symptoms Cardiovascular: Reports: No Symptoms Gastrointestinal: Reports: No Symptoms Musculoskeletal: Reports: No Symptoms - Patient Data Vitals - Most Recent: Last Vital Signs Temp 36.4 C 10/23/19 08:00 Pulse 76 10/23/19 08:00 Resp 16 10/23/19 08:00 BP 95/63 10/23/19 08:44 Pulse Ox 100 10/23/19 08:00 Weight - Most Recent: 70.534 kg I&O - Last 24 Hours: Intake & Output 10/22/19 10/23/19 10/23/19 22:59 06:59 14:59 Intake Total 370 250 240 Balance 370 250 240 Lab Results Last 24 Hours: Laboratory Results - last 24 hr 10/22/19 10/22/19 10/22/19 Range/Units 11:49 17:01 21:08 POC Glucose 142 H 196 H 247 H (70-105) mg/dl 10/23/19 10/23/19 Range/Units 07:45 10:00 POC Glucose 437 H* 220 H (70-105) mg/dl Dexter Results Last 24 Hours: Microbiology 10/17/19 22:35 Aerobic Blood Culture - Final Blood - Venous - Lab Draw NO GROWTH AFTER 5 DAYS Anaerobic Blood Culture - Final NO GROWTH AFTER 5 DAYS 10/17/19 22:30 Aerobic Blood Culture - Final Blood - Venous NO GROWTH AFTER 5 DAYS Anaerobic Blood Culture - Final NO GROWTH AFTER 5 DAYS Med Orders - Current: Current Medications Acetaminophen (Tylenol) 650 mg PO Q6H PRN PRN Reason: Pain (Mild 1-3)/fever Last Admin: 10/23/19 10:13 Dose: 650 mg Documented by: Dextrose/Water (Dextrose 50% In Water) 25 ml IVPUSH Q1H PRN PRN Reason: blood sugar <70 Escitalopram Oxalate (Lexapro) 20 mg PO DAILY [facility] Last Admin: 10/23/19 08:40 Dose: 20 mg Documented by: Gabapentin (Neurontin) 600 mg PO TID [facility] Last Admin: 10/23/19 08:40 Dose: 600 mg Documented by: Heparin Sodium (Porcine) (Heparin Sodium) 5,000 units SUBCUT Q8HR [facility] Last Admin: 10/23/19 05:33 Dose: 5,000 units Documented by: Vancomycin HCl 1 gm/ Sodium (Chloride) 250 mls @ 166.667 mls/hr IV Q8H [facility] Last Admin: 10/23/19 03:56 Dose: 166.667 mls/hr Documented by: Insulin Glargine (Lantus) 50 unit SUBCUT BEDTIME [facility] Insulin Human Lispro (Humalog) 0 unit SUBCUT QIDACANDBED [facility]; Protocol Last Admin: 10/23/19 08:45 Dose: Not Given Documented by: Insulin Human Lispro (Humalog) 18 unit SUBCUT TIDMEALS [facility] Lidocaine HCl (Xylocaine 2% Jelly) 5 ml TOP DAILY [facility] Last Admin: 10/23/19 08:45 Dose: 1 applic Documented by: Lisinopril (Prinivil) 5 mg PO DAILY [facility] Last Admin: 10/23/19 08:44 Dose: 5 mg Documented by: Morphine Sulfate (Morphine) 1 mg IVPUSH Q4H PRN PRN Reason: severe pain Last Admin: 10/20/19 10:24 Dose: 1 mg Documented by: Ondansetron HCl (Zofran Odt) 4 mg PO Q6H PRN PRN Reason: nausea, able to take PO Oxycodone HCl (Oxycodone) 5 mg PO Q4H PRN PRN Reason: moderate pain Last Admin: 10/23/19 08:41 Dose: 5 mg Documented by: Sodium Chloride (Saline Flush) 10 ml FLUSH ASDIRECTED PRN PRN Reason: IV Use Last Admin: 10/23/19 05:35 Dose: 10 ml Documented by: Vancomycin HCl (Pharmacy To Dose - Vancomycin) 1 dose .XX ASDIRECTED [facility] Zolpidem Tartrate (Ambien) 5 mg PO BEDTIME PRN PRN Reason: Sleep Last Admin: 10/22/19 23:32 Dose: 5 mg Documented by: Discontinued Medications Acetaminophen (Tylenol) 650 mg PO Q4H PRN PRN Reason: Pain (Mild 1-3)/fever Fentanyl (Sublimaze) 50 mcg IVPUSH ONETIME ONE Stop: 10/17/19 23:23 Last Admin: 10/17/19 23:51 Dose: 50 mcg Documented by: Fentanyl (Sublimaze) 50 mcg IVPUSH Q2H PRN PRN Reason: Pain, severe Last Admin: 10/19/19 06:02 Dose: 50 mcg Documented by: Hydromorphone HCl (Dilaudid) 1 mg IVPUSH ONETIME ONE Stop: 10/17/19 22:16 Last Admin: 10/17/19 22:20 Dose: 1 mg Documented by: Sodium Chloride (Normal Saline) 1,000 mls @ 1,000 mls/hr IV .BOLUS ONE Stop: 10/17/19 23:15 Last Admin: 10/17/19 22:19 Dose: 1,000 mls/hr Documented by: Vancomycin HCl 1 gm/ Dextrose/ (Water) 250 mls @ 167 mls/hr IV ONETIME ONE Stop: 10/17/19 23:54 Last Admin: 10/18/19 01:54 Dose: Not Given Documented by: Potassium Chloride/Sodium Chloride (Normal Saline With 20 Meq Kcl) 1,000 mls @ 150 mls/hr IV ASDIRECTED [facility] Last Infusion: 10/19/19 08:45 Dose: Infused Documented by: Vancomycin HCl 1 gm/ Sodium (Chloride) 250 mls @ 166.667 mls/hr IV Q12H [facility] Stop: 10/19/19 14:00 Last Admin: 10/19/19 12:24 Dose: 166.667 mls/hr Documented by: Ibuprofen (Motrin) 400 mg PO Q6H PRN PRN Reason: Pain (moderate 4-6) Insulin Glargine (Lantus) 35 unit SUBCUT BEDTIME [facility] Last Admin: 10/20/19 21:36 Dose: 35 units Documented by: Insulin Glargine (Lantus) 45 unit SUBCUT BEDTIME [facility] Last Admin: 10/22/19 21:34 Dose: 45 units Documented by: Insulin Human Lispro (Humalog) 15 unit SUBCUT TIDMEALS [facility] Last Admin: 10/23/19 08:44 Dose: Not Given Documented by: Insulin Human Lispro (Humalog) 20 unit SUBCUT ONETIME ONE Stop: 10/23/19 08:31 Last Admin: 10/23/19 08:38 Dose: 20 units Documented by: Iopamidol (Isovue-300 (61%)) 100 ml IVPUSH ONETIME ONE Stop: 10/22/19 13:03 Last Admin: 10/22/19 13:02 Dose: 100 ml Documented by: Potassium Chloride (Klor-Con 10) 40 meq PO Q6H [facility] Stop: 10/18/19 05:31 Last Admin: 10/18/19 05:03 Dose: 40 meq Documented by: - Exam General: Alert, Oriented, Cooperative Neck: Supple Lungs: Clear to Auscultation, Normal Respiratory Effort Cardiovascular: Regular Rate, Regular Rhythm GI/Abdominal Exam: Normal Bowel Sounds, Soft, Non-Tender, No Organomegaly, No Distention, No Abnormal Bruit, No Mass, Pelvis Stable, Other (Significant induration on the right gluteal area. Purulent drainage.) Extremities: Normal Inspection, Normal Range of Motion, Non-Tender, No Pedal Edema, Normal Capillary Refill Sepsis Event Note - Evaluation Sepsis Screening Result: No Definite Risk - Focused Exam Vital Signs: Vital Signs Temp Pulse Resp BP BP Pulse Ox 10/23/19 08:44 95/63 10/23/19 08:00 36.4 C 76 16 95/63 100 10/23/19 04:00 36.8 C 92 20 99/63 97 10/23/19 00:00 36.8 C 92 20 121/71 100 - Problem List Review Problem List Initiated/Reviewed/Updated: Yes - My Orders Last 24 Hours: My Active Orders 10/23/19 12:00 Insulin Lispro [HumaLOG] 18 unit SUBCUT TIDMEALS 10/23/19 21:00 Insulin Glarg,Human.Rec.Analog [LantUS] 50 unit SUBCUT BEDTIME - Plan Plan:: Presented with right buttock area cellulitis, large indurated area, smaller abscess #. Sepsis #. Hx of drug use #Right buttock cellulitis with abscess with sepsis POA CT obtained on 21 October shows no abscess cavity Sepsis resolved with normalized lactic acid leukocytosis is improved Diabetes Uncontrolled likely due to infection Continue with increased Levemir and short-acting insulin Hypertension Treat with lisinopril, Plan: Patient has significant cellulitis with marked induration on the right gluteal area. The area was lanced in the emergency room that I do not think that it is adequate incision and drainage. CT scan of the Buttocks did not show any collection of fluid. I will continue with intravenous antibiotics at this point. I do not think the patient will require after 6 weeks of intravenous antibiotics. PICC line was placed. Blood sugar has been inadequately controlled. I'll go ahead and increase insulin Lantus to 50 units nightly. Increase insulin NovoLog 18 units with meals
[2019-10-23] MEDS ORDERED: Midazolam 1 MG/ML 2 ML SDV IV ONE (12:45)
--- NOTE | 2019-10-23 13:54 | CR ---
PROCEDURE INFORMATION: Exam: XR Chest, 1 View, Catheter or Device Position Exam date and time: 10/23/2019 1:32 PM Age: 34 years old Clinical indication: Device placement; Additional info: Picc placement TECHNIQUE: Imaging protocol: XR of the chest. XR was performed to evaluate catheter or device position. Views: 1 view. COMPARISON: CR Chest 1V Frontal 05/12/2019 9:20 PM FINDINGS: Tubes, catheters and devices: Right PICC terminates in the superior vena cava approaching the superior cavoatrial junction and is directed toward the heart. Lungs: Unremarkable. No consolidation. Pleural space: Unremarkable. No pleural effusion. No pneumothorax. Heart/Mediastinum: Unremarkable. No cardiomegaly. Bones/joints: Unremarkable. IMPRESSION: Adequately positioned right PICC. No evident complication or cardiopulmonary disease.
[2019-10-23] MEDS: Insulin Glarg,Human.Rec.Analog 100 Unit/ML SUBCUT SCH (23:16)
[2019-10-23] MEDS: Zolpidem 5 MG Tab PO PRN (23:20)
[2019-10-24] MEDS ORDERED: Heparin Sodium 5,000 Units/ML Vial SUBCUT ONE (06:00)
[2019-10-24] MEDS: Heparin Sodium 5,000 Units/ML Vial SUBCUT SCH ×3 (07:36→21:13)
[2019-10-24] MEDS: Insulin Lispro 100 Units/ML 3 ML Vial SUBCUT SCH ×7 (08:28→21:09)
[2019-10-24] MEDS: Escitalopram 10 MG Tab PO SCH (08:31)
[2019-10-24] MEDS: Lisinopril 5 MG Tab PO SCH (08:32)
[2019-10-24] MEDS: oxyCODONE 5 MG Tab PO PRN ×3 (08:32→20:13)
[2019-10-24] MEDS: Gabapentin 300 MG Cap PO SCH ×3 (08:34→21:12)
[2019-10-24] MEDS: Acetaminophen 325 MG Tab PO PRN ×3 (08:41→20:13)
--- NOTE | 2019-10-24 09:55 | PCM.PN ---
- General Info Date of Service: 10/24/19 Subjective Update: Patient indicated that she does obtain on the right buttocks area Described pain as tingling in nature. It is also throbbing sometimes. No fever documented. No nausea and no vomiting - Review of Systems Pulmonary: Reports: No Symptoms Cardiovascular: Reports: No Symptoms Gastrointestinal: Reports: No Symptoms Musculoskeletal: Reports: No Symptoms - Patient Data Vitals - Most Recent: Last Vital Signs Temp 37.1 C 10/24/19 07:36 Pulse 86 10/24/19 07:36 Resp 16 10/24/19 07:36 BP 106/60 10/24/19 08:32 Pulse Ox 100 10/24/19 07:36 Weight - Most Recent: 70.534 kg I&O - Last 24 Hours: Intake & Output 10/23/19 10/24/19 10/24/19 22:59 06:59 14:59 Intake Total 660 540 Balance 660 540 Lab Results Last 24 Hours: Laboratory Results - last 24 hr 10/23/19 10/23/19 10/23/19 Range/Units 10:00 11:23 11:39 Creatinine 0.78 (0.55-1.02) mg/dL Est Cr Clr Drug Dosing 90.58 mL/min Estimated GFR (MDRD) > 60 POC Glucose 220 H 214 H (70-105) mg/dl Vancomycin Trough 8.8 L (10.0-20.0) ug/mL 10/23/19 10/23/19 10/24/19 Range/Units 16:58 20:51 07:55 Creatinine (0.55-1.02) mg/dL Est Cr Clr Drug Dosing mL/min Estimated GFR (MDRD) POC Glucose 196 H 344 H 160 H (70-105) mg/dl Vancomycin Trough (10.0-20.0) ug/mL Med Orders - Current: Current Medications Acetaminophen (Tylenol) 650 mg PO Q6H PRN PRN Reason: Pain (Mild 1-3)/fever Last Admin: 10/24/19 08:41 Dose: 650 mg Documented by: Dextrose/Water (Dextrose 50% In Water) 25 ml IVPUSH Q1H PRN PRN Reason: blood sugar <70 Escitalopram Oxalate (Lexapro) 20 mg PO DAILY [facility] Last Admin: 10/24/19 08:31 Dose: 20 mg Documented by: Gabapentin (Neurontin) 600 mg PO TID [facility] Last Admin: 10/24/19 08:34 Dose: 600 mg Documented by: Heparin Sodium (Porcine) (Heparin Sodium) 5,000 units SUBCUT Q8HR [facility] Last Admin: 10/24/19 07:36 Dose: Not Given Documented by: Vancomycin HCl 1.25 gm/ Sodium (Chloride) 250 mls @ 166.667 mls/hr IV Q8H [facility] Last Admin: 10/24/19 07:36 Dose: Not Given Documented by: Insulin Glargine (Lantus) 50 unit SUBCUT BEDTIME [facility] Last Admin: 10/23/19 23:16 Dose: 50 units Documented by: Insulin Human Lispro (Humalog) 0 unit SUBCUT QIDACANDBED [facility]; Protocol Last Admin: 10/24/19 08:28 Dose: 2 units Documented by: Insulin Human Lispro (Humalog) 18 unit SUBCUT TIDMEALS [facility] Last Admin: 10/24/19 08:30 Dose: 18 units Documented by: Lidocaine HCl (Xylocaine 2% Jelly) 5 ml TOP DAILY [facility] Last Admin: 10/23/19 08:45 Dose: 1 applic Documented by: Lisinopril (Prinivil) 5 mg PO DAILY [facility] Last Admin: 10/24/19 08:32 Dose: 5 mg Documented by: Morphine Sulfate (Morphine) 1 mg IVPUSH Q4H PRN PRN Reason: severe pain Last Admin: 10/20/19 10:24 Dose: 1 mg Documented by: Ondansetron HCl (Zofran Odt) 4 mg PO Q6H PRN PRN Reason: nausea, able to take PO Oxycodone HCl (Oxycodone) 5 mg PO Q4H PRN PRN Reason: moderate pain Last Admin: 10/24/19 08:32 Dose: 5 mg Documented by: Sodium Chloride (Saline Flush) 10 ml FLUSH ASDIRECTED PRN PRN Reason: IV Use Last Admin: 10/23/19 05:35 Dose: 10 ml Documented by: Vancomycin HCl (Pharmacy To Dose - Vancomycin) 1 dose .XX ASDIRECTED [facility] Zolpidem Tartrate (Ambien) 5 mg PO BEDTIME PRN PRN Reason: Sleep Last Admin: 10/23/19 23:20 Dose: 5 mg Documented by: Discontinued Medications Acetaminophen (Tylenol) 650 mg PO Q4H PRN PRN Reason: Pain (Mild 1-3)/fever Fentanyl (Sublimaze) 50 mcg IVPUSH ONETIME ONE Stop: 10/17/19 23:23 Last Admin: 10/17/19 23:51 Dose: 50 mcg Documented by: Fentanyl (Sublimaze) 50 mcg IVPUSH Q2H PRN PRN Reason: Pain, severe Last Admin: 10/19/19 06:02 Dose: 50 mcg Documented by: Heparin Sodium (Porcine) (Heparin Sodium) 5,000 units SUBCUT .STK-MED ONE Stop: 10/24/19 06:01 Hydromorphone HCl (Dilaudid) 1 mg IVPUSH ONETIME ONE Stop: 10/17/19 22:16 Last Admin: 10/17/19 22:20 Dose: 1 mg Documented by: Sodium Chloride (Normal Saline) 1,000 mls @ 1,000 mls/hr IV .BOLUS ONE Stop: 10/17/19 23:15 Last Admin: 10/17/19 22:19 Dose: 1,000 mls/hr Documented by: Vancomycin HCl 1 gm/ Dextrose/ (Water) 250 mls @ 167 mls/hr IV ONETIME ONE Stop: 10/17/19 23:54 Last Admin: 10/18/19 01:54 Dose: Not Given Documented by: Potassium Chloride/Sodium Chloride (Normal Saline With 20 Meq Kcl) 1,000 mls @ 150 mls/hr IV ASDIRECTED [facility] Last Infusion: 10/19/19 08:45 Dose: Infused Documented by: Vancomycin HCl 1 gm/ Sodium (Chloride) 250 mls @ 166.667 mls/hr IV Q12H [facility] Stop: 10/19/19 14:00 Last Admin: 10/19/19 12:24 Dose: 166.667 mls/hr Documented by: Vancomycin HCl 1 gm/ Sodium (Chloride) 250 mls @ 166.667 mls/hr IV Q8H [facility] Last Admin: 10/23/19 03:56 Dose: 166.667 mls/hr Documented by: Vancomycin HCl 1.25 gm/ Sodium (Chloride) 250 mls @ as directed IV .STK-MED ONE Stop: 10/24/19 04:16 Ibuprofen (Motrin) 400 mg PO Q6H PRN PRN Reason: Pain (moderate 4-6) Insulin Glargine (Lantus) 35 unit SUBCUT BEDTIME [facility] Last Admin: 10/20/19 21:36 Dose: 35 units Documented by: Insulin Glargine (Lantus) 45 unit SUBCUT BEDTIME [facility] Last Admin: 10/22/19 21:34 Dose: 45 units Documented by: Insulin Human Lispro (Humalog) 15 unit SUBCUT TIDMEALS [facility] Last Admin: 10/23/19 08:44 Dose: Not Given Documented by: Insulin Human Lispro (Humalog) 20 unit SUBCUT ONETIME ONE Stop: 10/23/19 08:31 Last Admin: 10/23/19 08:38 Dose: 20 units Documented by: Iopamidol (Isovue-300 (61%)) 100 ml IVPUSH ONETIME ONE Stop: 10/22/19 13:03 Last Admin: 10/22/19 13:02 Dose: 100 ml Documented by: Potassium Chloride (Klor-Con 10) 40 meq PO Q6H [facility] Stop: 10/18/19 05:31 Last Admin: 10/18/19 05:03 Dose: 40 meq Documented by: - Exam General: Alert, Oriented Neck: Supple Lungs: Clear to Auscultation, Normal Respiratory Effort Cardiovascular: Regular Rate, Regular Rhythm Back Exam: Normal Inspection, Full Range of Motion Sepsis Event Note - Evaluation Sepsis Screening Result: No Definite Risk - Focused Exam Vital Signs: Vital Signs Temp Pulse Resp BP BP Pulse Ox Pulse Ox 10/24/19 08:32 106/60 10/24/19 07:36 37.1 C 86 16 103/60 100 10/23/19 23:00 97 - Problem List Review Problem List Initiated/Reviewed/Updated: Yes - My Orders Last 24 Hours: My Active Orders 10/23/19 12:00 Insulin Lispro [HumaLOG] 18 unit SUBCUT TIDMEALS 10/23/19 21:00 Insulin Glarg,Human.Rec.Analog [LantUS] 50 unit SUBCUT BEDTIME 10/25/19 05:11 BASIC METABOLIC PANEL,BMP [CHEM] AM CBC W/O DIFF,HEMOGRAM [HEME] AM - Plan Plan:: Presented with right buttock area cellulitis, large indurated area, smaller abscess #. Sepsis #. Hx of drug use #Right buttock cellulitis with abscess with sepsis POA CT 09/21 shows no abscess cavity Sepsis resolved with normalized lactic acid leukocytosis is improved #Diabetes Uncontrolled likely due to infection Continue with increased Levemir and short-acting insulin #Hypertension Treat with lisinopril, Plan: Continue IV vancomycin PICC line placed Obtain repeat CBC Obtain repeat BMP in AM Monitor vancomycin level per pharmacy
[2019-10-24] MEDS: Lidocaine 2% Jelly 5 ML Tube TOP SCH (10:10)
[2019-10-24] MEDS: Sodium Chloride 0.9% 10 ML Syringe FLUSH PRN ×2 (12:17→20:06)
[2019-10-24] MEDS: Insulin Glarg,Human.Rec.Analog 100 Unit/ML SUBCUT SCH (21:10)
[2019-10-25] MEDS: Zolpidem 5 MG Tab PO PRN (00:26)
[2019-10-25] MEDS: oxyCODONE 5 MG Tab PO PRN ×2 (02:10→08:25)
[2019-10-25] MEDS: Acetaminophen 325 MG Tab PO PRN ×2 (02:11→08:26)
[2019-10-25] MEDS: Sodium Chloride 0.9% 10 ML Syringe FLUSH PRN (03:51)
[2019-10-25] MEDS: Heparin Sodium 5,000 Units/ML Vial SUBCUT SCH (05:28)
[2019-10-25 07:08] LABS: CHLORIDE,CL 102 mmol/L (98-107); SODIUM,NA 137 mmol/L (136-145)
[2019-10-25 07:53] VITALS: BP 110/66; PULSE 89
[2019-10-25] MEDS: Gabapentin 300 MG Cap PO SCH (08:24)
[2019-10-25] MEDS: Lisinopril 5 MG Tab PO SCH (08:25)
[2019-10-25] MEDS: Insulin Lispro 100 Units/ML 3 ML Vial SUBCUT SCH ×2 (08:27→08:29)
[2019-10-25] MEDS: Escitalopram 10 MG Tab PO SCH (08:27)
[2019-10-25] MEDS: Lidocaine 2% Jelly 5 ML Tube TOP SCH (08:31)
--- NOTE | 2019-10-25 10:48 | PCM.DCSUM1 ---
Discharge Summary - Hospital Course Free Text/Narrative:: Presented with right buttock area cellulitis, large indurated area, smaller abscess Patient had ID at the ER. Cultures grew MRSA #. Sepsis #. Hx of drug use #Right buttock cellulitis with abscess with sepsis POA CT 09/21 shows no abscess cavity Sepsis resolved with normalized lactic acid leukocytosis is improved #Diabetes Uncontrolled likely due to infection Continue with increased Levemir and short-acting insulin #Hypertension Treat with lisinopril, Transfer patient to [facility] Diagnosis: Stroke: No - Discharge Data Discharge Date: 10/25/19 Discharge Disposition: DC/Tfer W/I Hosp To [place] [id number] Condition: Stable - Referral to Home Health Primary Care Physician: Miri Child MD - Discharge Plan Home Medications: Home Meds Gabapentin [Neurontin] 600 mg PO TID 06/26/16 [History] Acetaminophen [Tylenol] 650 mg PO Q6H PRN 08/05/16 [History] Escitalopram [Lexapro] 20 mg PO DAILY 03/03/18 [History] Lisinopril 5 mg PO DAILY 03/03/18 [History] Ibuprofen [Motrin] 600 mg PO TID PRN 05/02/18 [History] metFORMIN HCl [Metformin ER Gastric] 1,000 mg PO BID 07/24/18 [History] Insulin Aspart [NovoLOG] 15 units SQ TID 05/12/19 [History] Insulin Glarg,Human.Rec.Analog [Lantus] 35 units SQ BEDTIME 05/12/19 [History] Sulfamethoxazole/Trimethoprim [Bactrim Ds Tablet] 1 each PO BID 10/17/19 [History] cephALEXin [Cephalexin] 500 mg PO TID 10/17/19 [History] Forms: ED Department Discharge Referrals: Miri Dockery MD [Primary Care Provider] - - Discharge Summary/Plan Comment DC Time >30 min.: No - Review of Systems General: Reports: Weakness Pulmonary: Reports: No Symptoms Cardiovascular: Reports: No Symptoms Gastrointestinal: Reports: No Symptoms Musculoskeletal: Reports: No Symptoms - Patient Data Vitals - Most Recent: Last Vital Signs Temp 36.6 C 10/25/19 07:52 Pulse 89 10/25/19 07:52 Resp 16 10/25/19 07:52 BP 110/66 10/25/19 08:25 Pulse Ox 99 10/25/19 07:52 Weight - Most Recent: 70.534 kg I&O - Last 24 hours: Intake & Output 10/24/19 10/25/19 10/25/19 22:59 06:59 14:59 Intake Total 1435 1250 370 Balance 1435 1250 370 Lab Results - Last 24 hrs: Laboratory Results - last 24 hr 10/24/19 10/24/19 10/24/19 Range/Units 11:40 16:58 21:03 WBC (5.0-10.0) 10^3/uL RBC (4.2-5.4) 10^6/uL Hgb (12.0-16.0) g/dL Hct (37.0-47.0) % MCV (80-100) fL MCH (27.0-34.0) pg MCHC (33.0-35.0) g/dL Plt Count (150-450) 10^3/uL Sodium (136-145) mmol/L Potassium (3.5-5.1) mmol/L Chloride (98-107) mmol/L Carbon Dioxide (21-32) mmol/L Anion Gap (7-13) mEq/L BUN (7-18) mg/dL Creatinine (0.55-1.02) mg/dL Est Cr Clr Drug Dosing mL/min Estimated GFR (MDRD) Glucose (74-99) mg/dL POC Glucose 83 261 H 258 H (70-105) mg/dl Calcium (8.5-10.1) mg/dL 10/25/19 10/25/19 10/25/19 Range/Units 06:10 06:10 07:46 WBC 9.6 (5.0-10.0) 10^3/uL RBC 3.43 L (4.2-5.4) 10^6/uL Hgb 10.2 L (12.0-16.0) g/dL Hct 31.0 L (37.0-47.0) % MCV 90.4 D (80-100) fL MCH 29.7 (27.0-34.0) pg MCHC 32.9 L (33.0-35.0) g/dL Plt Count 515 H (150-450) 10^3/uL Sodium 137 (136-145) mmol/L Potassium 4.0 (3.5-5.1) mmol/L Chloride 102 (98-107) mmol/L Carbon Dioxide 26 (21-32) mmol/L Anion Gap 13.0 (7-13) mEq/L BUN 11 (7-18) mg/dL Creatinine 0.56 (0.55-1.02) mg/dL Est Cr Clr Drug Dosing 126.17 mL/min Estimated GFR (MDRD) > 60 Glucose 280 H (74-99) mg/dL POC Glucose 239 H (70-105) mg/dl Calcium 7.8 L (8.5-10.1) mg/dL Med Orders - Current: Current Medications Acetaminophen (Tylenol) 650 mg PO Q6H PRN PRN Reason: Pain (Mild 1-3)/fever Last Admin: 10/25/19 08:26 Dose: 650 mg Documented by: Dextrose/Water (Dextrose 50% In Water) 25 ml IVPUSH Q1H PRN PRN Reason: blood sugar <70 Escitalopram Oxalate (Lexapro) 20 mg PO DAILY [facility] Last Admin: 10/25/19 08:27 Dose: 20 mg Documented by: Gabapentin (Neurontin) 600 mg PO TID [facility] Last Admin: 10/25/19 08:24 Dose: 600 mg Documented by: Heparin Sodium (Porcine) (Heparin Sodium) 5,000 units SUBCUT Q8HR [facility] Last Admin: 10/25/19 05:28 Dose: Not Given Documented by: Vancomycin HCl 1.25 gm/ Sodium (Chloride) 250 mls @ 166.667 mls/hr IV Q8H [facility] Last Admin: 10/25/19 03:50 Dose: 166.667 mls/hr Documented by: Insulin Glargine (Lantus) 50 unit SUBCUT BEDTIME [facility] Last Admin: 10/24/19 21:10 Dose: 50 units Documented by: Insulin Human Lispro (Humalog) 0 unit SUBCUT QIDACANDBED [facility]; Protocol Last Admin: 10/25/19 08:29 Dose: 4 units Documented by: Insulin Human Lispro (Humalog) 18 unit SUBCUT TIDMEALS [facility] Last Admin: 10/25/19 08:27 Dose: 18 units Documented by: Lidocaine HCl (Xylocaine 2% Jelly) 5 ml TOP DAILY [facility] Last Admin: 10/25/19 08:31 Dose: 1 applic Documented by: Lisinopril (Prinivil) 5 mg PO DAILY [facility] Last Admin: 10/25/19 08:25 Dose: 5 mg Documented by: Morphine Sulfate (Morphine) 1 mg IVPUSH Q4H PRN PRN Reason: severe pain Last Admin: 10/20/19 10:24 Dose: 1 mg Documented by: Ondansetron HCl (Zofran Odt) 4 mg PO Q6H PRN PRN Reason: nausea, able to take PO Oxycodone HCl (Oxycodone) 5 mg PO Q4H PRN PRN Reason: moderate pain Last Admin: 10/25/19 08:25 Dose: 5 mg Documented by: Sodium Chloride (Saline Flush) 10 ml FLUSH ASDIRECTED PRN PRN Reason: IV Use Last Admin: 10/25/19 03:51 Dose: 10 ml Documented by: Vancomycin HCl (Pharmacy To Dose - Vancomycin) 1 dose .XX ASDIRECTED [facility] Zolpidem Tartrate (Ambien) 5 mg PO BEDTIME PRN PRN Reason: Sleep Last Admin: 10/25/19 00:26 Dose: 5 mg Documented by: Discontinued Medications Acetaminophen (Tylenol) 650 mg PO Q4H PRN PRN Reason: Pain (Mild 1-3)/fever Fentanyl (Sublimaze) 50 mcg IVPUSH ONETIME ONE Stop: 10/17/19 23:23 Last Admin: 10/17/19 23:51 Dose: 50 mcg Documented by: Fentanyl (Sublimaze) 50 mcg IVPUSH Q2H PRN PRN Reason: Pain, severe Last Admin: 10/19/19 06:02 Dose: 50 mcg Documented by: Heparin Sodium (Porcine) (Heparin Sodium) 5,000 units SUBCUT .STK-MED ONE Stop: 10/24/19 06:01 Hydromorphone HCl (Dilaudid) 1 mg IVPUSH ONETIME ONE Stop: 10/17/19 22:16 Last Admin: 10/17/19 22:20 Dose: 1 mg Documented by: Sodium Chloride (Normal Saline) 1,000 mls @ 1,000 mls/hr IV .BOLUS ONE Stop: 10/17/19 23:15 Last Admin: 10/17/19 22:19 Dose: 1,000 mls/hr Documented by: Vancomycin HCl 1 gm/ Dextrose/ (Water) 250 mls @ 167 mls/hr IV ONETIME ONE Stop: 10/17/19 23:54 Last Admin: 10/18/19 01:54 Dose: Not Given Documented by: Potassium Chloride/Sodium Chloride (Normal Saline With 20 Meq Kcl) 1,000 mls @ 150 mls/hr IV ASDIRECTED [facility] Last Infusion: 10/19/19 08:45 Dose: Infused Documented by: Vancomycin HCl 1 gm/ Sodium (Chloride) 250 mls @ 166.667 mls/hr IV Q12H [facility] Stop: 10/19/19 14:00 Last Admin: 10/19/19 12:24 Dose: 166.667 mls/hr Documented by: Vancomycin HCl 1 gm/ Sodium (Chloride) 250 mls @ 166.667 mls/hr IV Q8H [facility] Last Admin: 10/23/19 03:56 Dose: 166.667 mls/hr Documented by: Vancomycin HCl 1.25 gm/ Sodium (Chloride) 250 mls @ as directed IV .STK-MED ONE Stop: 10/24/19 04:16 Ibuprofen (Motrin) 400 mg PO Q6H PRN PRN Reason: Pain (moderate 4-6) Insulin Glargine (Lantus) 35 unit SUBCUT BEDTIME [facility] Last Admin: 10/20/19 21:36 Dose: 35 units Documented by: Insulin Glargine (Lantus) 45 unit SUBCUT BEDTIME [facility] Last Admin: 10/22/19 21:34 Dose: 45 units Documented by: Insulin Human Lispro (Humalog) 15 unit SUBCUT TIDMEALS [facility] Last Admin: 10/23/19 08:44 Dose: Not Given Documented by: Insulin Human Lispro (Humalog) 20 unit SUBCUT ONETIME ONE Stop: 10/23/19 08:31 Last Admin: 10/23/19 08:38 Dose: 20 units Documented by: Iopamidol (Isovue-300 (61%)) 100 ml IVPUSH ONETIME ONE Stop: 10/22/19 13:03 Last Admin: 10/22/19 13:02 Dose: 100 ml Documented by: Potassium Chloride (Klor-Con 10) 40 meq PO Q6H [facility] Stop: 10/18/19 05:31 Last Admin: 10/18/19 05:03 Dose: 40 meq Documented by: - Exam General: Reports: Alert, Oriented, Cooperative Neck: Reports: Supple Lungs: Reports: Clear to Auscultation, Normal Respiratory Effort Cardiovascular: Reports: Regular Rate, Regular Rhythm GI/Abdominal Exam: Normal Bowel Sounds, Soft, Non-Tender, No Organomegaly, No Distention, No Abnormal Bruit, No Mass, Pelvis Stable, Other (Indurated tender area right gluteal area )
== END 2019-10-25 11:09 | disposition swing bed (61) | DRG 872 ==
LOC: DL.ED 20:39 → DL.MS 22:23
PROVIDERS: ADMIT Internal Medicine; ATTEND Hospitalist
DX: A41.9 Sepsis, unspecified organism (principal); L03.317 Cellulitis of buttock; L02.31 Cutaneous abscess of buttock; E87.6 Hypokalemia; E11.65 Type 2 diabetes mellitus with hyperglycemia; E11.42 Type 2 diabetes mellitus with diabetic polyneuropathy; I10 Essential (primary) hypertension; B95.62 Methicillin resistant Staphylococcus aureus infection as the cause of diseases classified elsewhere; E11.40 Type 2 diabetes mellitus with diabetic neuropathy, unspecified; Z88.5 Allergy status to narcotic agent; E66.9 Obesity, unspecified; Z86.14 Personal history of Methicillin resistant Staphylococcus aureus infection; Z88.0 Allergy status to penicillin; Z88.6 Allergy status to analgesic agent; Z79.4 Long term (current) use of insulin; Z79.899 Other long term (current) drug therapy
CPT/HCPCS: 36415; 80053; 83605; 85025; 96374; 99285; J1170; J7030; 36569; 72193; 80048; 80202; 82565; 82962; 85027; 87040; 99283; A9270-GY; J1644; J1815-GY; J2250; J2270; J3010; J3370; J3480; J7050; Q9967

== ENCOUNTER 2019-10-25 09:39 | Inpatient (IN) | payer MEDICAID ==
[2019-10-25] MEDS ORDERED: 50% Dextrose in Water 50 ML Syringe IVPUSH PRN (10:49)
[2019-10-25] MEDS ORDERED: Ondansetron 4 MG Tab.DIS PO PRN (10:49)
[2019-10-25] MEDS ORDERED: Morphine 2 MG/ML SYRINGE IVPUSH PRN (10:49)
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
[2019-10-25] MEDS: Acetaminophen 325 MG Tab PO PRN ×2 (12:45→20:14)
[2019-10-25] MEDS: oxyCODONE 5 MG Tab PO PRN ×2 (12:45→20:13)
[2019-10-25] MEDS: Insulin Lispro 100 Units/ML 3 ML Vial SUBCUT SCH ×5 (12:59→21:47)
[2019-10-25] MEDS: Gabapentin 300 MG Cap PO SCH ×2 (14:16→21:45)
[2019-10-25] MEDS: Heparin Sodium 5,000 Units/ML Vial SUBCUT SCH ×2 (14:16→21:49)
[2019-10-25] MEDS: Sodium Chloride 0.9% 10 ML Syringe FLUSH PRN ×2 (19:53→21:50)
[2019-10-25] MEDS: Insulin Glarg,Human.Rec.Analog 100 Unit/ML SUBCUT SCH (21:46)
[2019-10-25] MEDS: Zolpidem 5 MG Tab PO PRN (23:05)
[2019-10-26] MEDS: Sodium Chloride 0.9% 10 ML Syringe FLUSH PRN ×4 (03:58→22:14)
[2019-10-26] MEDS: oxyCODONE 5 MG Tab PO PRN ×4 (04:08→20:40)
[2019-10-26] MEDS: Acetaminophen 325 MG Tab PO PRN ×3 (04:09→16:32)
[2019-10-26] MEDS: Heparin Sodium 5,000 Units/ML Vial SUBCUT SCH ×3 (05:36→21:11)
[2019-10-26] MEDS: Insulin Lispro 100 Units/ML 3 ML Vial SUBCUT SCH ×7 (09:00→21:09)
[2019-10-26] MEDS: Gabapentin 300 MG Cap PO SCH ×3 (09:02→20:39)
[2019-10-26] MEDS: Lisinopril 5 MG Tab PO SCH (09:02)
[2019-10-26] MEDS: Escitalopram 10 MG Tab PO SCH (09:02)
[2019-10-26] MEDS: Lidocaine 2% Jelly 5 ML Tube TOP SCH (09:03)
[2019-10-26] MEDS: Insulin Glarg,Human.Rec.Analog 100 Unit/ML SUBCUT SCH (21:08)
[2019-10-26] MEDS: Zolpidem 5 MG Tab PO PRN (23:54)
[2019-10-27] MEDS: oxyCODONE 5 MG Tab PO PRN ×5 (00:48→21:41)
[2019-10-27] MEDS: Acetaminophen 325 MG Tab PO PRN ×3 (00:48→17:04)
[2019-10-27] MEDS: Sodium Chloride 0.9% 10 ML Syringe FLUSH PRN ×3 (04:01→05:37)
[2019-10-27] MEDS: Heparin Sodium 5,000 Units/ML Vial SUBCUT SCH ×3 (05:38→21:40)
[2019-10-27] MEDS: Insulin Lispro 100 Units/ML 3 ML Vial SUBCUT SCH ×7 (08:31→22:00)
[2019-10-27] MEDS: Escitalopram 10 MG Tab PO SCH (08:34)
[2019-10-27] MEDS: Gabapentin 300 MG Cap PO SCH ×3 (08:34→21:41)
[2019-10-27] MEDS: Lisinopril 5 MG Tab PO SCH (08:35)
[2019-10-27] MEDS: Lidocaine 2% Jelly 5 ML Tube TOP SCH (08:35)
[2019-10-27] MEDS ORDERED: Sodium Chloride 0.9% 10 ML Syringe FLUSH PRN (14:35)
--- NOTE | 2019-10-27 15:29 | CR ---
PROCEDURE INFORMATION: Exam: XR Chest, 1 View Exam date and time: 10/27/2019 1:41 PM Age: 34 years old Clinical indication: Condition or disease; Catheter placement, adjustment or replacement; Additional info: Picc line problems. Checking for placement TECHNIQUE: Imaging protocol: XR of the chest Views: 1 view. COMPARISON: CR OR PCXR-No Charge-PICC/Central 10/23/2019 1:32 PM FINDINGS: Lungs: Poor inspiratory effort. No infiltrates. Pleural space: Unremarkable. No pleural effusion. No pneumothorax. Heart/Mediastinum: Unremarkable. No cardiomegaly. Bones/joints: Unremarkable. IMPRESSION: No infiltrates
[2019-10-27] MEDS: Insulin Glarg,Human.Rec.Analog 100 Unit/ML SUBCUT SCH (21:59)
[2019-10-27] MEDS: Zolpidem 5 MG Tab PO PRN (23:45)
[2019-10-28] MEDS: oxyCODONE 5 MG Tab PO PRN ×4 (04:56→21:46)
[2019-10-28] MEDS: Acetaminophen 325 MG Tab PO PRN ×4 (04:57→22:54)
[2019-10-28] MEDS: Heparin Sodium 5,000 Units/ML Vial SUBCUT SCH ×3 (06:38→21:50)
[2019-10-28] MEDS: Sodium Chloride 0.9% 10 ML Syringe FLUSH PRN ×4 (08:59→22:36)
[2019-10-28] MEDS: Insulin Lispro 100 Units/ML 3 ML Vial SUBCUT SCH ×7 (09:03→21:42)
[2019-10-28] MEDS: Gabapentin 300 MG Cap PO SCH ×3 (09:04→21:45)
[2019-10-28] MEDS: Lidocaine 2% Jelly 5 ML Tube TOP SCH (09:04)
[2019-10-28] MEDS: Lisinopril 5 MG Tab PO SCH (09:04)
[2019-10-28] MEDS: Escitalopram 10 MG Tab PO SCH (09:04)
--- NOTE | 2019-10-28 09:59 | PCM.PN ---
- General Info Date of Service: 10/28/19 Subjective Update: The patient was admitted with sepsis secondary to gluteal abscess. Underwent incision and drainage in the emergency room and subsequently was admitted to the medical floor. Started on intravenous antibiotics. The patient had a CT scan which did not show any abscess collection. She was transferred to swing bed. No new complaints today Still has some pain of the right gluteal region It is getting better No fever and no chills - Patient Data Vitals - Most Recent: Last Vital Signs Temp 36.9 C 10/28/19 09:08 Pulse 88 10/28/19 09:08 Resp 18 10/28/19 09:08 BP 106/67 10/28/19 09:08 Pulse Ox 100 10/28/19 09:08 Weight - Most Recent: 73.198 kg Lab Results Last 24 Hours: Laboratory Results - last 24 hr 10/27/19 10/27/19 10/27/19 Range/Units 12:01 16:51 20:49 POC Glucose 135 H 142 H 202 H (70-105) mg/dl 10/28/19 Range/Units 08:02 POC Glucose 129 H (70-105) mg/dl Med Orders - Current: Current Medications Acetaminophen (Tylenol) 650 mg PO Q6H PRN PRN Reason: Pain (Mild 1-3)/fever Last Admin: 10/28/19 04:57 Dose: 650 mg Documented by: Dextrose/Water (Dextrose 50% In Water) 25 ml IVPUSH Q1H PRN PRN Reason: blood sugar <70 Escitalopram Oxalate (Lexapro) 20 mg PO DAILY [facility] Last Admin: 10/28/19 09:04 Dose: 20 mg Documented by: Gabapentin (Neurontin) 600 mg PO TID [facility] Last Admin: 10/28/19 09:04 Dose: 600 mg Documented by: Heparin Sodium (Porcine) (Heparin Sodium) 5,000 units SUBCUT Q8HR [facility] Last Admin: 10/28/19 06:38 Dose: 5,000 units Documented by: Vancomycin HCl 1.25 gm/ Sodium (Chloride) 250 mls @ 166.667 mls/hr IV Q8H [facility] Last Admin: 10/28/19 04:30 Dose: 125 mls/hr Documented by: Insulin Glargine (Lantus) 50 unit SUBCUT BEDTIME [facility] Last Admin: 10/27/19 21:59 Dose: 50 units Documented by: Insulin Human Lispro (Humalog) 0 unit SUBCUT QIDACANDBED [facility]; Protocol Last Admin: 10/28/19 09:04 Dose: Not Given Documented by: Insulin Human Lispro (Humalog) 18 unit SUBCUT TIDMEALS [facility] Last Admin: 10/28/19 09:03 Dose: 18 units Documented by: Lidocaine HCl (Xylocaine 2% Jelly) 5 ml TOP DAILY [facility] Last Admin: 10/28/19 09:04 Dose: 1 applic Documented by: Lisinopril (Prinivil) 5 mg PO DAILY [facility] Last Admin: 10/28/19 09:04 Dose: 5 mg Documented by: Morphine Sulfate (Morphine) 1 mg IVPUSH Q4H PRN PRN Reason: severe pain Ondansetron HCl (Zofran Odt) 4 mg PO Q6H PRN PRN Reason: nausea, able to take PO Oxycodone HCl (Oxycodone) 5 mg PO Q4H PRN PRN Reason: moderate pain Last Admin: 10/28/19 04:56 Dose: 5 mg Documented by: Sodium Chloride (Saline Flush) 10 ml FLUSH ASDIRECTED PRN PRN Reason: IV Use Last Admin: 10/28/19 08:59 Dose: 10 ml Documented by: Sodium Chloride (Saline Flush) 10 ml FLUSH ASDIRECTED PRN PRN Reason: Keep Vein Open Last Admin: 10/28/19 08:59 Dose: 10 ml Documented by: Vancomycin HCl (Pharmacy To Dose - Vancomycin) 1 dose .XX ASDIRECTED [facility] Zolpidem Tartrate (Ambien) 5 mg PO BEDTIME PRN PRN Reason: Sleep Last Admin: 10/27/19 23:45 Dose: 5 mg Documented by: - Exam General: Alert, Oriented, Cooperative, No Acute Distress Neck: Supple Lungs: Clear to Auscultation, Normal Respiratory Effort GI/Abdominal Exam: Normal Bowel Sounds, Soft, Non-Tender, No Organomegaly, No Distention, No Abnormal Bruit, No Mass, Pelvis Stable, Other (Abscess right gluteal regionappears to be draining well) Sepsis Event Note - Evaluation Sepsis Screening Result: No Definite Risk - Focused Exam Vital Signs: Vital Signs Temp Pulse Resp BP BP Pulse Ox 10/28/19 09:08 36.9 C 88 18 106/67 100 10/28/19 09:04 - Problem List Review Problem List Initiated/Reviewed/Updated: Yes - My Orders Last 24 Hours: My Active Orders 10/27/19 14:35 Peripheral IV Care [RC] Sodium Chloride 0.9% [Saline Flush] 10 ml FLUSH ASDIRECTED PRN Peripheral IV Insertion Adult [OM.PC] Routine - Plan Plan:: #. Sepsis Secondary to gluteal abscess #. Right gluteal abscess Cultures grew MRSA #. Diabetes mellitus type 2 Suboptimal control #. History of illicit drug use Plan: Continue intravenous vancomycin. I think the patient come be transitioned to oral antibiotics if needed in the next 3-4 days.
[2019-10-28] MEDS: Insulin Glarg,Human.Rec.Analog 100 Unit/ML SUBCUT SCH (21:42)
[2019-10-29] MEDS: Zolpidem 5 MG Tab PO PRN (01:13)
[2019-10-29] MEDS: Sodium Chloride 0.9% 10 ML Syringe FLUSH PRN ×4 (04:26→19:43)
[2019-10-29] MEDS: oxyCODONE 5 MG Tab PO PRN ×4 (05:29→19:38)
[2019-10-29] MEDS: Acetaminophen 325 MG Tab PO PRN ×3 (05:30→22:05)
[2019-10-29] MEDS: Heparin Sodium 5,000 Units/ML Vial SUBCUT SCH ×3 (05:34→22:09)
[2019-10-29] MEDS: Escitalopram 10 MG Tab PO SCH (09:06)
[2019-10-29] MEDS: Insulin Lispro 100 Units/ML 3 ML Vial SUBCUT SCH ×7 (09:06→22:08)
[2019-10-29] MEDS: Gabapentin 300 MG Cap PO SCH ×3 (09:06→22:06)
[2019-10-29] MEDS: Lidocaine 2% Jelly 5 ML Tube TOP SCH (09:09)
[2019-10-29] MEDS: Lisinopril 5 MG Tab PO SCH (09:09)
[2019-10-29] MEDS: Insulin Glarg,Human.Rec.Analog 100 Unit/ML SUBCUT SCH (22:07)
[2019-10-30] MEDS: oxyCODONE 5 MG Tab PO PRN ×6 (00:30→20:40)
[2019-10-30] MEDS: Zolpidem 5 MG Tab PO PRN (00:30)
[2019-10-30] MEDS: Sodium Chloride 0.9% 10 ML Syringe FLUSH PRN ×2 (03:47→03:48)
[2019-10-30] MEDS: Acetaminophen 325 MG Tab PO PRN ×3 (04:41→20:39)
[2019-10-30] MEDS: Heparin Sodium 5,000 Units/ML Vial SUBCUT SCH ×3 (05:58→21:19)
[2019-10-30] MEDS: Escitalopram 10 MG Tab PO SCH (08:39)
[2019-10-30] MEDS: Lisinopril 5 MG Tab PO SCH (08:39)
[2019-10-30] MEDS: Lidocaine 2% Jelly 5 ML Tube TOP SCH (08:40)
[2019-10-30] MEDS: Gabapentin 300 MG Cap PO SCH ×3 (08:40→21:18)
[2019-10-30] MEDS: Insulin Lispro 100 Units/ML 3 ML Vial SUBCUT SCH ×7 (08:41→22:22)
[2019-10-30] MEDS ORDERED: Calcium Carbonate 500 MG Tab.Chew PO PRN (12:18)
[2019-10-30] MEDS: Insulin Glarg,Human.Rec.Analog 100 Unit/ML SUBCUT SCH (22:22)
[2019-10-31] MEDS: Zolpidem 5 MG Tab PO PRN (00:22)
[2019-10-31] MEDS: oxyCODONE 5 MG Tab PO PRN ×4 (00:50→13:01)
[2019-10-31] MEDS: Acetaminophen 325 MG Tab PO PRN (04:59)
[2019-10-31] MEDS: Heparin Sodium 5,000 Units/ML Vial SUBCUT SCH ×2 (05:00→13:46)
[2019-10-31 08:06] VITALS: BP 123/78; PULSE 86
[2019-10-31] MEDS: Insulin Lispro 100 Units/ML 3 ML Vial SUBCUT SCH ×4 (08:08→13:20)
[2019-10-31] MEDS: Gabapentin 300 MG Cap PO SCH ×2 (08:31→13:46)
[2019-10-31] MEDS: Escitalopram 10 MG Tab PO SCH (08:31)
[2019-10-31] MEDS: Lisinopril 5 MG Tab PO SCH (08:32)
--- NOTE | 2019-10-31 10:29 | DISCH ---
FINAL DIAGNOSES: 1. Right gluteal abscess/methicillin-resistant Staphylococcus aureus. 2. Systemic inflammatory response syndrome secondary to gluteal abscess. 3. Type 2 diabetes mellitus. 4. Illicit drug use. BRIEF HISTORY OF PRESENT ILLNESS: Please see H and P, and the patient was admitted with sepsis secondary to gluteal abscess. She underwent incision and drainage in the emergency room and subsequently was admitted to medical floor and she was started on intravenous antibiotics, and the patient had a CAT scan which did not show any abscess in the collection and she was transferred to swing bed for continuation of the IV vancomycin for 2 weeks and then the rest of hospital course in swing bed was unremarkable and she was discharged. She will be discharged home on oral clindamycin and resume on her home medication. CONDITION ON DISCHARGE: Improved. DISCHARGE INSTRUCTION: The patient to follow up with Dr. Prather in 1 week. [facility] /[id number]
[2019-10-31] MEDS: Sodium Chloride 0.9% 10 ML Syringe FLUSH PRN (11:38)
--- NOTE | 2019-10-31 11:42 | PN ---
DATE: 10/31/2019 Partial dictation marker #1. SUBJECTIVE: The patient continues to do well. The patient finished a 2-week course of IV vancomycin for her gluteal abscess and MRSA. The patient has been doing well. She denies any fever, chills, chest pain, shortness of breath, nor any other complaints and she is ready to go home and her sister will be helping her change the dressing at home. OBJECTIVE: Vital Signs: Blood pressure is 123/78, pulse of 86, respirations of 17, temperature of 97, saturation is 100%. Heart: Regular rate and rhythm. Normal S1 and S2. No gallops. No rubs. Lungs: Equal bilaterally. No crackles, no wheezing. Abdomen: Soft, nontender. Extremities: Negative for any significant pedal edema. No calf tenderness. Pelvis: Examination of the right gluteal area is remarkable for the wound, but there is no drainage. PLAN: We will discharge the patient home and we will put her on clindamycin for the next 7 days. She is going to follow up with Dr. Prather in 1 week. We will also resume her previous home medication. [facility] /[id number]
[2019-10-31] MEDS: Lidocaine 2% Jelly 5 ML Tube TOP SCH (12:53)
== END 2019-10-31 14:50 | disposition home or self-care (01) | DRG 603 ==
LOC: DL.MS 10:51
PROVIDERS: ADMIT Hospitalist; ATTEND Internal Medicine
DX: L02.31 Cutaneous abscess of buttock (principal); R65.10 Systemic inflammatory response syndrome (SIRS) of non-infectious origin without acute organ dysfunction; B95.62 Methicillin resistant Staphylococcus aureus infection as the cause of diseases classified elsewhere; E11.42 Type 2 diabetes mellitus with diabetic polyneuropathy; E66.9 Obesity, unspecified; I10 Essential (primary) hypertension; Z87.440 Personal history of urinary (tract) infections; Z79.899 Other long term (current) drug therapy; Z88.0 Allergy status to penicillin; Z88.6 Allergy status to analgesic agent; Z68.27 Body mass index [BMI] 27.0-27.9, adult; Z79.4 Long term (current) use of insulin
CPT/HCPCS: 36415; 71045; 80202; 82565; 82962; A9270-GY; J1642; J1644; J3370; J7050

== ENCOUNTER 2020-01-24 18:57 | Emergency (ER) | payer MEDICAID ==
[2020-01-24] MEDS ORDERED: Doxycycline Monohydrate 100 MG Cap PO ONE (21:02)
[2020-01-24] MEDS ORDERED: Acetaminophen 325 MG Tab PO ONE (21:02)
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
[2020-01-24 21:27] VITALS: BP 140/90; PULSE 119
== END 2020-01-24 21:11 | disposition home or self-care (01) ==
LOC: DL.ED 18:57
DX: L02.31 Cutaneous abscess of buttock (principal); R82.79 Other abnormal findings on microbiological examination of urine; I10 Essential (primary) hypertension; E11.40 Type 2 diabetes mellitus with diabetic neuropathy, unspecified; E66.9 Obesity, unspecified; Z86.14 Personal history of Methicillin resistant Staphylococcus aureus infection; Z88.6 Allergy status to analgesic agent; Z88.0 Allergy status to penicillin; Z79.4 Long term (current) use of insulin; Z79.899 Other long term (current) drug therapy
CPT/HCPCS: 80305-QW; 81001; 81025; 99283; A9270-GY

== ENCOUNTER 2020-02-11 03:26 | Emergency (ER) | payer MEDICAID ==
[2020-02-11 03:42] VITALS: BP 119/83; PULSE 94
[2020-02-11 04:09] LABS: CHLORIDE,CL 93 mmol/L (98-107); SODIUM,NA 130 mmol/L (136-145)
[2020-02-11] MEDS ORDERED: Glucagon,Human Recombinant 1 MG Vial IM PRN (04:26)
[2020-02-11] MEDS ORDERED: Insulin Regular, Human 100 Units/ML 3 ML Vial IV ONE (04:26)
[2020-02-11] MEDS ORDERED: 50% Dextrose in Water 50 ML Syringe IV PRN (04:26)
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
[2020-02-11] MEDS ORDERED: Sodium Chloride 0.9% 500 ML IV ONE (04:35)
[2020-02-11] MEDS ORDERED: Acetaminophen 325 MG Tab PO ONE (05:13)
[2020-02-11] MEDS ORDERED: Benzonatate 100 MG Cap PO ONE (05:27)
--- NOTE | 2020-02-11 06:25 | CT ---
PROCEDURE INFORMATION: Exam: CT Chest Without Contrast; Diagnostic Exam date and time: 02/11/2020 5:15 AM Age: 34 years old Clinical indication: Other: Cough right chest pain, (-) d-dimer TECHNIQUE: Imaging protocol: Diagnostic computed tomography of the chest without contrast. Radiation optimization: All CT scans at this facility use at least one of these dose optimization techniques: automated exposure control; mA and/or kV adjustment per patient size (includes targeted exams where dose is matched to clinical indication); or iterative reconstruction. COMPARISON: CT Chest w Cont 05/12/2019 10:51 PM FINDINGS: Lungs: There are ill-defined scattered areas of peripheral ground-glass opacification bilaterally.Commonly reported imaging features of COVID-19 pneumonia are present. Other processes such as influenza pneumonia and organizing pneumonia, as can be seen with drug toxicity and connective tissue disease, can cause a similar imaging pattern. (Reference: Kevin) Pleural space: Unremarkable. No pneumothorax. No pleural effusion. Heart: Unremarkable. No cardiomegaly. No pericardial effusion. Aorta: Unremarkable. No aortic aneurysm. Lymph nodes: Unremarkable. No enlarged lymph nodes. Bones/joints: Unremarkable. No acute fracture. Soft tissues: Unremarkable. IMPRESSION: Findings consistent with COVID-19 pneumonia. REFERENCES: Kevin Meza et al., [employer] Society [place] Expert Consensus Statement on Reporting Chest CT Findings Related to COVID-19. Endorsed by the Society of [employer]acic Radiology, the [place] [employer], and RSNA. Published May 08, 2019.
[2020-02-11] MEDS ORDERED: Azithromycin 250 MG Tab PO ONE (06:41)
== END 2020-02-11 07:03 | disposition home or self-care (01) ==
LOC: DL.ED 03:26
DX: U07.1 COVID-19 (principal); J12.89 Other viral pneumonia; E87.1 Hypo-osmolality and hyponatremia; E11.65 Type 2 diabetes mellitus with hyperglycemia; I10 Essential (primary) hypertension; E11.40 Type 2 diabetes mellitus with diabetic neuropathy, unspecified; Z77.22 Contact with and (suspected) exposure to environmental tobacco smoke (acute) (chronic); Z88.5 Allergy status to narcotic agent; Z88.0 Allergy status to penicillin; Z79.4 Long term (current) use of insulin; Z79.899 Other long term (current) drug therapy
CPT/HCPCS: 36415; 71250; 80053; 80305-QW; 81001; 82962; 83605; 84484; 84703; 85025; 85379; 86140; 87040; 87804; 93005; 99285-25; A9270-GY; J1815-GY; J7040; U0002

== ENCOUNTER 2020-03-22 18:19 | Emergency (ER) | payer MEDICAID ==
[2020-03-22] MEDS ORDERED: Magnesium Citrate Solution 296 ML Bottle PO ONE (18:20)
[2020-03-22 18:32] VITALS: BP 143/71; PULSE 119
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
[2020-03-22] MEDS ORDERED: Magnesium Citrate Solution 296 ML Bottle ONE (19:53)
--- NOTE | 2020-03-22 19:59 | CR ---
PROCEDURE INFORMATION: Exam: XR Abdomen, 1 View Exam date and time: 03/22/2020 7:39 PM Age: 34 years old Clinical indication: Other: Pain; Additional info: Constipated TECHNIQUE: Imaging protocol: XR of the abdomen. Views: Frontal supine view of the abdomen. 1 View. COMPARISON: CR Abdomen 1V Flat 09/25/2017 11:50 PM FINDINGS: Lungs: The lung bases are clear. Gastrointestinal tract: The stomach is not distended. No pathologically dilated small bowel loops are seen. There is a large volume of stool in the colon in keeping with constipation. There are no worrisome air-fluid levels. Intraperitoneal space: There is no free air under the hemidiaphragms. Bones/joints: No acute osseous pathology is identified. IMPRESSION: Large volume of stool in keeping with constipation.
== END 2020-03-22 19:30 | disposition home or self-care (01) ==
LOC: DL.ED 18:19
DX: K59.01 Slow transit constipation (principal); I10 Essential (primary) hypertension; E11.40 Type 2 diabetes mellitus with diabetic neuropathy, unspecified; E66.9 Obesity, unspecified; Z68.26 Body mass index [BMI] 26.0-26.9, adult; Z88.6 Allergy status to analgesic agent; Z88.0 Allergy status to penicillin; Z79.899 Other long term (current) drug therapy; Z79.4 Long term (current) use of insulin; Z77.22 Contact with and (suspected) exposure to environmental tobacco smoke (acute) (chronic)
CPT/HCPCS: 74018; 81003; 81025; 99283; A9270

== ENCOUNTER 2020-05-06 12:25 | Emergency (ER) | payer MEDICAID ==
[2020-05-06 12:36] VITALS: BP 139/94; PULSE 125
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
[2020-05-06 13:24] LABS: ANION GAP 17.5 mEq/L (7-13); CHLORIDE,CL 97 mmol/L (98-107); SODIUM,NA 134 mmol/L (136-145)
[2020-05-06] MEDS ORDERED: Iopamidol 612 MG/ML 100 ML Bottle IVPUSH ONE (13:29)
[2020-05-06] MEDS ORDERED: HYDROmorphone 0.5 MG/0.5 ML Syringe IVPUSH ONE (14:37)
--- NOTE | 2020-05-06 14:45 | CT ---
EXAMINATION: Hand w Cont Lt SEX: Female AGE: 34 years CLINICAL HISTORY: 34-year-old female with swollen left hand. Significant history "Meth injection" 3 days ago. Scan technique: Volume acquisition of data distal left forearm, wrist and left hand obtained during intravenous administration 100 cc nonionic Isovue contrast at 1.5 cc/s via injector with hand prone on the Siemens multislice scanner [place], [place]. All data archived in the PACS system for storage, reformatting axial/sagittal/coronal planes and study. Interpretation: Abnormal. 1. No foreign bodies. 2. *Large collection of air in the soft tissues dorsum of the hand immediately above second/third metacarpals left hand. Collection measuring 4.1 cm L x 1.8 cm deep x 3.0 cm W is associated with dependent fluid level i.e. probable abscess. 3. No current signs of associated inflammatory periostitis or osteomyelitis bones of the left hand. 4. No current extension of air along tendon sheaths or into the volar aspect of the hand. 5. Normal left wrist and distal left radius/ulna.
[2020-05-06] MEDS ORDERED: Potassium Chloride 10 MEQ Tab.ER PO ONE (14:47)
== END 2020-05-06 15:36 ==
LOC: DL.ED 12:25
DX: A41.9 Sepsis, unspecified organism (principal); L02.512 Cutaneous abscess of left hand; F15.90 Other stimulant use, unspecified, uncomplicated; I10 Essential (primary) hypertension; E11.40 Type 2 diabetes mellitus with diabetic neuropathy, unspecified; E66.9 Obesity, unspecified; Z68.24 Body mass index [BMI] 24.0-24.9, adult; Z88.5 Allergy status to narcotic agent; Z88.0 Allergy status to penicillin; Z79.4 Long term (current) use of insulin; Z79.899 Other long term (current) drug therapy; Z20.822 Contact with and (suspected) exposure to COVID-19
CPT/HCPCS: 36415; 73201; 80053; 80305; 81001; 81025; 83605; 85025; 87040; 87635; 96365; 96375; 99284; 99285; A9270; J1170; J3370; J7050; Q9967; U0002

== ENCOUNTER 2020-09-20 08:12 | Emergency (ER) | payer MEDICAID, SELFPAY ==
[2020-09-20 08:34] LABS: AMPHETAMINES,URINE NEGATIVE (NEGATIVE); BARBITURATES,URINE NEGATIVE (NEGATIVE); BENZODIAZEPINE,URINE NEGATIVE (NEGATIVE); MDMA (ECSTASY), URINE NEGATIVE (NEGATIVE); METHADONE,URINE NEGATIVE (NEGATIVE); METHAMPHETAMINES,URINE NEGATIVE (NEGATIVE); OPIATES,URINE NEGATIVE (NEGATIVE); OXYCODONE,URINE NEGATIVE (NEGATIVE); PHENCYCLIDINE,URINE NEGATIVE (NEGATIVE); TCA,URINE NEGATIVE (NEGATIVE)
[2020-09-20 08:37] VITALS: BP 122/88; PULSE 104
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
== END 2020-09-20 09:33 | disposition home or self-care (01) ==
LOC: DL.ED 08:12
DX: O99.891 Other specified diseases and conditions complicating pregnancy (principal); O13.2 Gestational [pregnancy-induced] hypertension without significant proteinuria, second trimester; R10.33 Periumbilical pain; Z87.891 Personal history of nicotine dependence; Z79.899 Other long term (current) drug therapy; Z88.0 Allergy status to penicillin; Z88.6 Allergy status to analgesic agent; Z79.4 Long term (current) use of insulin; Z3A.19 19 weeks gestation of pregnancy
CPT/HCPCS: 80305-QW; 81001; 99284-25

== ENCOUNTER 2020-12-27 16:11 | Emergency (ER) | payer MEDICAID ==
[2020-12-27 18:00] LABS: PTT,PARTIAL THROMBOPLSTIN TIME 24.7 SEC (22.0-34.0)
[2020-12-27 18:44] VITALS: BP 125/66; PULSE 88
== END 2020-12-27 19:35 | disposition home or self-care (01) ==
LOC: DL.ED 16:11
DX: O99.891 Other specified diseases and conditions complicating pregnancy (principal); R45.82 Worries; R45.4 Irritability and anger; I10 Essential (primary) hypertension; E11.40 Type 2 diabetes mellitus with diabetic neuropathy, unspecified; Z88.0 Allergy status to penicillin; Z88.6 Allergy status to analgesic agent; Z3A.01 Less than 8 weeks gestation of pregnancy; Z79.899 Other long term (current) drug therapy
CPT/HCPCS: 36415; 81001; 85025; 85610; 85730; 86900; 86901; 99283

== ENCOUNTER 2021-01-04 19:24 | Observation (INO) | payer MEDICAID ==
[2021-01-04 21:39] LABS: AMPHETAMINES,URINE NEGATIVE (NEGATIVE); BARBITURATES,URINE NEGATIVE (NEGATIVE); BENZODIAZEPINE,URINE NEGATIVE (NEGATIVE); MDMA (ECSTASY), URINE NEGATIVE (NEGATIVE); METHADONE,URINE NEGATIVE (NEGATIVE); METHAMPHETAMINES,URINE NEGATIVE (NEGATIVE); OPIATES,URINE NEGATIVE (NEGATIVE); OXYCODONE,URINE NEGATIVE (NEGATIVE); PHENCYCLIDINE,URINE NEGATIVE (NEGATIVE); TCA,URINE NEGATIVE (NEGATIVE)
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
[2021-01-04] MEDS ORDERED: Buprenorphine 8 MG Tab.SL SL PRN (22:54)
[2021-01-04] MEDS ORDERED: Glucagon,Human Recombinant 1 MG Vial IM PRN (23:08)
[2021-01-04] MEDS ORDERED: 50% Dextrose in Water 50 ML Syringe IVPUSH PRN (23:08)
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
[2021-01-05] MEDS ORDERED: Lactated Ringers 1,000 ML IV SCH (00:30)
[2021-01-05] MEDS ORDERED: Insulin Glarg,Human.Rec.Analog 100 Unit/ML SUBCUT SCH (09:00)
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
[2021-01-05 12:00] VITALS: BP 119/72; PULSE 87
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
[2021-01-06 12:47] LABS: C.TRACHOMATIS BY TMA Negative (Negative); N.GONORRHOEAE BY TMA Negative (Negative)
== END 2021-01-05 12:10 | disposition home or self-care (01) ==
LOC: DL.OBCHECK 19:24 → DL.OB 23:39
PROVIDERS: ADMIT Family Medicine; ATTEND Family Medicine
DX: O9A.213 Injury, poisoning and certain other consequences of external causes complicating pregnancy, third trimester (principal); O24.414 Gestational diabetes mellitus in pregnancy, insulin controlled; O13.3 Gestational [pregnancy-induced] hypertension without significant proteinuria, third trimester; O99.323 Drug use complicating pregnancy, third trimester; O98.42 Viral hepatitis complicating childbirth; B19.20 Unspecified viral hepatitis C without hepatic coma; Z37.9 Outcome of delivery, unspecified; Z3A.34 34 weeks gestation of pregnancy; Z01.812 Encounter for preprocedural laboratory examination; Z20.822 Contact with and (suspected) exposure to COVID-19
CPT/HCPCS: 36415; 51702; 76819; 80305; 81003; 82565; 82570; 82947; 83615; 84156; 84450; 84460; 84520; 84550; 85027; 85460; 86850; 86900; 86901; 87081; 87491; 87591; 87635; G0378; J1815; J7120; U0002

== ENCOUNTER 2021-07-02 22:59 | Emergency (ER) | payer MEDICAID ==
[2021-07-02 23:26] VITALS: BP 119/89; PULSE 101
[2021-07-02] MEDS ORDERED: metroNIDAZOLE 250 MG Tab PO ONE (23:53)
[2021-07-07 11:46] LABS: C.TRACHOMATIS BY TMA Negative (Negative); N.GONORRHOEAE BY TMA Negative (Negative)
== END 2021-07-03 00:10 | disposition home or self-care (01) ==
LOC: DL.ED 22:59
DX: N76.0 Acute vaginitis (principal); B96.89 Other specified bacterial agents as the cause of diseases classified elsewhere; I10 Essential (primary) hypertension; E11.40 Type 2 diabetes mellitus with diabetic neuropathy, unspecified; Z88.5 Allergy status to narcotic agent; Z79.4 Long term (current) use of insulin
CPT/HCPCS: 81003; 87210; 87491; 87591; 99283; A9270

== ENCOUNTER 2021-07-11 20:39 | Emergency (ER) | payer MEDICAID, SELFPAY | END 2021-07-11 21:22 | disposition left against medical advice (07) | LOC: DL.ED 20:39 | DX: Z53.21 Procedure and treatment not carried out due to patient leaving prior to being seen by health care provider (principal) ==

== ENCOUNTER 2021-12-17 17:07 | Emergency (ER) | payer MEDICAID | END 2021-12-17 20:04 | disposition left against medical advice (07) | LOC: DL.ED 17:07 | DX: Z53.21 Procedure and treatment not carried out due to patient leaving prior to being seen by health care provider (principal) ==

== ENCOUNTER 2022-01-22 18:20 | Emergency (ER) | payer MEDICAID ==
[2022-01-22] MEDS ORDERED: Ondansetron 4 MG Tab.DIS PO ONE (18:21)
[2022-01-22 18:54] VITALS: BP 135/93; PULSE 102
[2022-01-22 19:31] LABS: CORONAVIRUS COVID-19 NAA NEGATIVE (NEGATIVE); RESPIRATORY SYNCYTIAL VIR NAA POSITIVE (NEGATIVE)
[2022-01-22] MEDS ORDERED: Ondansetron 4 MG Tab.DIS ONE (20:05)
== END 2022-01-22 20:11 | disposition home or self-care (01) ==
LOC: DL.ED 18:20
DX: R19.7 Diarrhea, unspecified (principal); R11.0 Nausea; R05.9 Cough, unspecified; B97.4 Respiratory syncytial virus as the cause of diseases classified elsewhere; I10 Essential (primary) hypertension; E11.40 Type 2 diabetes mellitus with diabetic neuropathy, unspecified; M19.90 Unspecified osteoarthritis, unspecified site; Z88.5 Allergy status to narcotic agent; Z79.4 Long term (current) use of insulin; Z79.899 Other long term (current) drug therapy; Z20.822 Contact with and (suspected) exposure to COVID-19
CPT/HCPCS: 0241U; 87081; 87430; 99284; A9270